=== PATIENT | male | born 1965 | race Caucasian/White ===

== ENCOUNTER 2017-05-05 17:08 | Emergency (ER) | payer OTHER ==
[~2017-05-05] VITALS: Ht 175.3 cm; Wt 123.0 kg
[~2017-05-05 17:08] MED LIST: ASPEC81 PO
[2017-05-05 17:24] VITALS: TEMP 36.8; Ht 175.3 cm; Wt 123.0 kg
[2017-05-05] MEDS ORDERED: FLUO40CA8 PO (17:41)
[2017-05-05] MEDS ORDERED: ASPI1TAB83 PO (17:41)
[2017-05-05] MEDS ORDERED: BUPR100T5 PO (17:41)
[2017-05-05] MEDS ORDERED: IBUP-1277 PO (17:41)
[2017-05-05] MEDS ORDERED: OXYCODONE HCL IR 5 MG TAB (IMMEDIATE RELEASE) PO STA (17:43)
--- NOTE | 2017-05-05 19:02 | DIAGNOSTIC IMAGING REPORT ---
RIGHT TIBIA/FIBULA 2 VIEWS ROUTINE CLINICAL HISTORY: Right lower leg pain. COMPARISON: None FINDINGS: No acute fracture of the right tibia or fibula is identified. The right foot will be reported separately. Talar dome is intact. IMPRESSION: No acute fracture of the right tibia or fibula. Electronically signed by: Jose Wei M.D. 05/05/2017 7:01 PM Dictated Date/Time: 05/05/2017 7:00 PM
--- NOTE | 2017-05-05 19:04 | DIAGNOSTIC IMAGING REPORT ---
RIGHT FOOT MIN 3 VIEWS ROUTINE CLINICAL HISTORY: Right distal tib/fib and foot pain s/p "pop" in anklee. COMPARISON: None FINDINGS: A right hindfoot fusion is noted. Hardware is intact. No acute fracture is identified on this examination. Tarsometatarsal joints are intact. 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 There is plantar calcaneal spurring. IMPRESSION: 1. No acute fracture or dislocation within the right foot. 2. Status post right hindfoot fusion. Electronically signed by: Jose Wei M.D. 05/05/2017 7:02 PM Dictated Date/Time: 05/05/2017 7:01 PM
[2017-05-05] MEDS ORDERED: OXYC1TAB3 PO (19:29)
--- NOTE | 2017-05-05 19:31 | EMERGENCY ROOM VISIT NOTE ---
History First contact with patient: 17:33 Chief Complaint: LEG PAIN,LEG INJURY Stated Complaint: PAIN IN RT FOOT/LEG, NON WEIGHT BEARING History of Present Illness The patient is a 51 year old male who presents to the Emergency Room via private vehicle with complaints of "pain and right foot/leg, nonweightbearing". The patient states that he had a fusion of his right ankle joint 20 years ago performed by a rib cloth knitter. Since then he has been experiencing trouble in this ankle joint. Most recently, this past evening he was woken from sleep when he moved his ankle he heard a pop in the ankle joint. He then went back to sleep when he woke up he try to bear weight on the leg and was unable to do so secondary to pain in the right ankle. He notes with weightbearing, the pain radiates from the right ankle joint into the feet and then up the leg. He rates his pain as a 10/10 at times. He is concerned that the hardware in the leg may have shifted in the leg. There is been no fevers, chills, chest pain or shortness of breath. Review of Systems A complete 6-point Review of Systems was discussed with the patient, with pertinent positives and negatives listed in the History of Present Illness. All remaining Review of Systems questions can be considered negative unless otherwise specified. Past Medical/Surgical History Previous fusion of the right ankle. Family History No pertinent. Social History Smoking Status: Current Every Day Smoker Social History: Patient lives locally. Current/Historical Medications Scheduled Aspirin (Aspirin), 81 MG PO DAILY Bupropion Hcl (Wellbutrin Sr), 100 MG PO DAILY Fluoxetine Hcl (Prozac), 40 MG PO DAILY Scheduled PRN Ibuprofen (Advil), 800 MG PO DAILY PRN for Pain Oxycodone Ir (Roxicodone Ir), 1-2 TAB PO Q4H PRN for Pain Allergies Coded Allergies: No Known Allergies (Verified Allergy, Severe, 03/10/03) Physical Exam Vital Signs Date Time Temp Pulse Resp B/P (MAP) Pulse Ox O2 Delivery O2 Flow Rate FiO2 05/05/17 19:40 71 16 123/78 98 05/05/17 17:24 36.8 99 18 128/78 95 Room Air Physical Exam VITAL SIGNS - Vital signs and nursing notes were reviewed. GENERAL -51-year-old male appearing his stated age who is in no acute distress. Communicates well with provider and answers questions appropriately. SKIN - Without rashes. There is no evidence of a well-healed surgical scar overlying the right lateral malleolus. There is no erythema, edema or skin breakdown. EXTREMITIES - No clubbing or peripheral cyanosis. No pretibial edema present. There is tenderness to palpation overlying the entire right ankle joint radiating into the foot and distal jenkins. Near full range of motion is appreciated of the right knee, but very limited range of motion of the right ankle joint secondary to pain and hardware fusion. He is neurovascularly intact in this region. +5/5 strength noted in UE/LE bilaterally. There is no calf tenderness. Medical Decision & Procedures ER Provider Diagnostic Interpretation: RIGHT FOOT MIN 3 VIEWS ROUTINE CLINICAL HISTORY: Right distal tib/fib and foot pain s/p "pop" in anklee. COMPARISON: None FINDINGS: A right hindfoot fusion is noted. Hardware is intact. No acute fracture is identified on this examination. Tarsometatarsal joints are intact. 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 There is plantar calcaneal spurring. IMPRESSION: 1. No acute fracture or dislocation within the right foot. 2. Status post right hindfoot fusion. Electronically signed by: Jose Wei M.D. 05/05/2017 7:02 PM Dictated Date/Time: 05/05/2017 7:01 PM RIGHT TIBIA/FIBULA 2 VIEWS ROUTINE CLINICAL HISTORY: Right lower leg pain. COMPARISON: None FINDINGS: No acute fracture of the right tibia or fibula is identified. The right foot will be reported separately. Talar dome is intact. IMPRESSION: No acute fracture of the right tibia or fibula. Electronically signed by: Jose Wei M.D. 05/05/2017 7:01 PM Dictated Date/Time: 05/05/2017 7:00 PM Medications Administered Medications (Trade) Dose Ordered Sig/Denise Route Start Time Stop Time Status Last Admin Dose Admin Oxycodone HCl (Roxicodone Immediate Rel Tab) 10 mg NOW STAT PO 05/05/17 17:43 05/05/17 17:45 DC 05/05/17 17:50 10 MG Medical Decision Patient was seen and evaluated as above. After obtaining a thorough history and physical examination the decision was made to obtain radiographs of the right lower extremity. These were negative. I suspect the patient is likely spirits in either a sprain of the region, or potentially increased pain secondary to the intact hardware. There is obviously the potential for a small disruption of the hardware that is not appreciable by x-ray. The patient at this time appears stable for outpatient management, was fitted with crutches, and gel ankle splint. He'll be given OxyIR for his pain here, as well as a short-term prescription at home. He is to follow-up with Dr. Cordova, orthopedic surgeon. He was educated upon management, educated upon worrisome symptoms which to return, had questions prior to discharge, and was discharged home in good condition. In the evaluation and treatment of this patient, the following differential diagnoses were considered: Ankle Fracture, Ankle Sprain, Distal Fibula Fracture , Distal Tibia Fracture, Foot Fracture, [place]uve Fracture. [facility] Monitoring Program Search Results: patient reviewed within database, no issues identified Impression Primary Impression: Leg pain, right Departure Information Dispostion Home / Self-Care Condition GOOD Prescriptions Oxycodone Ir (Roxicodone Ir) 5 Mg Tab 1-2 TAB PO Q4H Y for Pain, #18 TAB For Initial Treatment Prov: Rafael Delgado PA-C 05/05/17 Referrals No Doctor, Assigned (PCP) Iván Cordova,D.O. Patient Instructions My [facility] Additional Instructions You have been treated in the Emergency Department for a Right Ankle pain. You have received pain medicine in the emergency department which impairs your ability to operate a vehicle. It is illegal for you to drive after receiving these medicines. You have been prescribed Oxy IR to be used for pain control. This is a narcotic medication. You cannot drive or consume alcohol while on this medicine. This medicine should only be used for pain that cannot be controlled with over-the- counter pain medicines. For pain control, you can use the following [id number] medicines (if >12 yo): - Regular strength (325mg/tab) Tylenol (acetaminophen) 2 tabs every 4-6 hours as needed. Do not exceed 12 tablets in a 24 hour period. Avoid taking more than 3 grams (3000 mg) of Tylenol per day. This includes any other sources of acetaminophen you may take on a regular basis. - Regular strength (200 mg/tab) Advil (ibuprofen) 1-2 tabs every 4-6 hours as needed. Do not exceed a dose of 3200 mg per day. If this is a recent injury (<24 hrs), ice can be applied to the area of pain for the first 3 days to help decrease pain and inflammation. You have been provided the number for an Orthopaedic Surgeon. You should call this number as soon as possible to establish a follow-up visit from today's Emergency Department visit. Keep the ankle brace/splint in place until cleared by Orthopedics. Use the crutches you have been provided to keep ALL weight off of the ankle until weight bearing is tolerable. Return to the Emergency Department if your current symptoms worsen despite treatment course outlined above, or if you develop any of the following symptoms : intractable pain despite aforementioned treatment course or new onset of numbness or tingling of the foot. Please return to the emergency department with any new/concerning symptoms.
[2017-05-05 19:40] VITALS: BP 123/78; PULSE 71; O2SAT 98
== END 2017-05-05 19:41 | disposition home or self-care (01) ==
LOC: C.EDB 17:09 → C.EDD 19:41
DX: M79.604 Pain in right leg (principal); F17.210 Nicotine dependence, cigarettes, uncomplicated; Z79.82 Long term (current) use of aspirin; Z79.899 Other long term (current) drug therapy

== ENCOUNTER 2018-01-14 17:02 | Emergency (ER) | payer OTHER ==
[~2018-01-14] VITALS: Ht 175.3 cm; Wt 102.8 kg
[~2018-01-14 17:02] MED LIST changes: -ASPEC81 PO; +ASPI1TAB83 PO; +BUPR100T5 PO; +FLUO40CA8 PO; +IBUP-1277 PO
[2018-01-14 17:05] VITALS: TEMP 36.5
[2018-01-14 17:31] VITALS: Ht 175.3 cm; Wt 102.8 kg
[2018-01-14 17:36] VITALS: O2SAT 95
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
[2018-01-14 17:48] LABS: BASO % 0.4 %; BASO ABS # 0.05 K/uL (0-0.2); EOS % 0.5 %; EOS ABS # 0.07 K/uL (0-0.5); HEMATOCRIT 42.5 % (42-52); HEMOGLOBIN 13.9 g/dL (14.0-18.0); IG# 0.04 K/uL (0.00-0.02); LYMPH % 25.9 %; LYMPH ABS # 3.52 K/uL (1.2-3.4); MEAN CELL VOLUME 77.7 fL (80-100); MEAN CORPUSCULAR HEMOGLOBIN 25.4 pg (25-34); MEAN CORPUSCULAR HGB CONC 32.7 g/dl (32-36); MEAN PLATELET VOLUME 10.1 fL (7.4-10.4); MONO % 5.9 %; NEUT ABS # 9.11 K/uL (1.4-6.5); PLATELET COUNT 249 K/uL (130-400); RED CELL DISTRIBUTION WIDTH CV 18.5 % (11.5-14.5); WHITE BLOOD COUNT 13.59 K/uL (4.8-10.8)
--- NOTE | 2018-01-14 17:54 | DIAGNOSTIC IMAGING REPORT ---
CHEST ONE VIEW PORTABLE CLINICAL HISTORY: EVALUATE WEAKNESS dyspnea COMPARISON STUDY: 01/14/2015 FINDINGS: Minimal atelectasis left base. Lungs otherwise are clear. The diaphragms are smooth. No significant cardiac enlargement. IMPRESSION: Minimal atelectasis left base. Otherwise negative study. The above report was generated using voice recognition software. It may contain grammatical, syntax or spelling errors. Electronically signed by: Richard Matamoros M.D. 01/14/2018 5:52 PM Dictated Date/Time: 01/14/2018 5:52 PM
[2018-01-14 17:56] LABS: PTT PATIENT 25.4 SECONDS (21.0-31.0)
[2018-01-14 18:26] LABS: ALBUMIN 3.4 gm/dl (3.4-5.0); ALT/SGPT 22 U/L (12-78); AST/SGOT 9 U/L (15-37); BLOOD UREA NITROGEN 14 mg/dl (7-18); CALCIUM 8.2 mg/dl (8.5-10.1); CARBON DIOXIDE 28 mmol/L (21-32); CREATININE 0.94 mg/dl (0.60-1.40); GLUCOSE 129 mg/dl (70-99); POTASSIUM 3.7 mmol/L (3.5-5.1); SODIUM 139 mmol/L (136-145)
[2018-01-14 18:37] LABS: ALKALINE PHOSPHATASE 93 U/L (45-117); CKMB < 0.5 ng/ml (0.5-3.6); TOTAL PROTEIN 7.1 gm/dl (6.4-8.2)
[2018-01-14 20:40] VITALS: BP 128/86; PULSE 72; O2SAT 94
== END 2018-01-14 20:41 | disposition home or self-care (01) ==
LOC: C.EDB 17:03 → C.EDC 20:41
DX: R55 Syncope and collapse (principal); F17.210 Nicotine dependence, cigarettes, uncomplicated; Z87.01 Personal history of pneumonia (recurrent); Z80.9 Family history of malignant neoplasm, unspecified; Z83.3 Family history of diabetes mellitus; Z82.49 Family history of ischemic heart disease and other diseases of the circulatory system; Z87.442 Personal history of urinary calculi; Z79.82 Long term (current) use of aspirin

== ENCOUNTER 2024-03-26 18:23 | Inpatient (IN) ==
--- OUTSIDE RECORDS SUMMARY | 2024-03-26 18:29 | External Medical Summary | Summary of Care ---
Author Name Unknown Organization [facility] Address [address] [place] [address] Phone [phone] Care Team Providers Care Child Care Worker Name Role Phone Alida MUNSON MD, Ilya Alcazar Primary Care Provider [phone] Reason for Referral * Precert (Within 10 days (routine)) - Authorized Specialty Diagnoses / Procedures Referred By Contac t Referred To Contact Cardiac Studies Diagnoses Nonrheumatic aortic valve insufficiency Bicuspid aortic valve Enlarged aorta (HCC) Procedures ECHO, COMPLETE (2D), TRANS-THORACIC Daksha Earl CRNP [address] [place] [id number] Referral ID Status Reason Start Date Expiration Date V isits Requested Visits Authorized [id number] Authorized Precert 12/04/2024 999 999 Reason for Visit * Reason Comments Follow Up Encounter Details Date Type Department Care Team (Late st Contact Info) Description 02/18/2024 3:30 PM EDT Office Visit Cardiology, [facility] [address] [place] [id number] Daksha Earl CRNP [address] [place] [id number] Bicuspid aortic valve*; Nonrheumatic aortic valve insufficiency; Enlarged aorta (HCC); HTN, goal below 140/90; DIZZINESS Allergies Active Allergy Reactions Criticality Noted Date Comments Oxycodone High 02/25/2022 Other reaction(s): CONFUSION, CRAZY FEELING Oxycodone-Acetaminop hen Neuro complications (Please comment) Medium 07/23/2010 documented as of this encounter (statuses as of 02/26/2024) Medications Medication Sig Dispensed Refills Start Date End Date Status ASPIRIN 81 MG PO TABS 1 tab daily 0 Active VIAGRA 25 MG PO TABSIndications: Erectile dysfunction One pill by mouth 1-4 hours before intercourse, no more than 1 dose in 24 hours. 10 Tab 2 08/24/2012 Active FLUoxetine HCl 40 MG CapsuleIndicatio ns:Depression with anxiety Take 1 Cap by mouth daily. 30 Cap 11 04/24/2016 Active buPROPion extended release, SR, (WELLBUTRIN SR) 100 MG TB12 Take 1 Tablet by mouth in the morning. 0 06/14/2017 Active acetaminophen (TYLENOL) 500 MG Tablet 2 Tablets. 0 12/12/2019 Active meclizine (ANTIVERT) 25 MG Tablet take 1 tablet by mouth three times a day if needed for dizziness 90 Tab 0 03/05/2020 Active Albuterol Sulfate HFA 108 (90 Base) MCG/ACT Inhalation Aerosol SolutionIndicati ons:Wheeze Inhale 2 Puffs by mouth every 4 hours as needed for Wheezing. 18 g 0 11/12/2022 Active Indapamide 1.25 MG Oral Tablet take 1 tablet by mouth every morning 90 Tablet 1 08/05/2023 Active Atorvastatin Calcium 40 MG Oral Tablet (Lipitor) take 1 tablet by mouth every morning 90 Tablet 2 08/23/2023 Active Meloxicam 7.5 MG Oral Tablet (Mobic) Take 1 Tablet by mouth in the morning and 1 Tablet before bedtime. 60 Tablet 5 09/10/2023 Active Additional Information Patient not taking.Reported on 02/18/2024 Benzonatate 100 MG Oral Capsule (Tessalon Perles)Indicatio ns:Acute cough Take 1 Capsule by mouth 3 times a day as needed for Cough. Do not cut, crush, or chew. 50 Capsule 1 11/12/2022 02/18/20 24 Discontinued Gabapentin 100 MG Oral Capsule (Neurontin) take 1 capsule by mouth every morning 1 capsule AT NOON and 1 capsule BEFORE BEDTIME MAY INCREASE TO 2 CAPS 3 TIMES A DAY FOR SHINGLE PAIN 180 Capsule 3 12/28/2022 02/18/20 24 Discontinued Amoxicillin-Pot Clavulanate 875-125 MG Oral Tablet (Augmentin) Take 1 Tablet by mouth in the morning and 1 Tablet before bedtime. 20 Tablet 0 06/14/2023 02/18/20 24 Discontinued documented as of this encounter (statuses as of 02/26/2024) Active Problems Problem Noted Date Diagnosed Date HTN, goal below 140/90 08/19/2022 Branch retinal vein occlusio n with macular edema of left eye 08/03/2017 Lumbar degenerative disc disease 03/25/2012 Secondary polycythemia 11/12/2009 Erectile dysfunction 09/18/2009 Leukocytosis 02/05/2009 DIZZINESS 10/08/2007 LABYRINTHITIS VIRAL 10/08/2007 Anxiety state 10/08/2007 ADVANCE DIRECTIVE INFORMATION 10/01/2006 Overview: No, Advance Directive brochure offered , patient declined. Tobacco use disorder 03/11/2000 documented as of this encounter (statuses as of 02/26/2024) Resolved Problems Problem Noted Date Diagnosed Date Resolved Date ACUTE STRESS 10/08/2007 07/23/2010 Acute cholecystitis 09/29/2002 05/15/20 05 documented as of this encounter (statuses as of 02/26/2024) Immunizations Name Administration Dates Next Due COVID-19 mRNA, LNP-s, No Pre serve, 2-Dose Series (Pfizer) 12/28/2020,12/07/2020 Pneumococcal Conjugate Vaccine, 20-valent (Prevn ar20) 05/13/2022 Seasonal Influenza, Quadrivalent, No Preserve, I M 07/10/2020,07/19/2019 TDAP (age 10 and older)(Boostrix) 10/21/2012 Zoster Vaccine Recombinant (Shingrix) 05/13/2022 documented as of this encounter Social History Tobacco Use Types Packs/Day Years Used Date Smoking Tobacco: Every Day Cigarettes 1 25 Started: 08/24/1987; Last attempted to quit: 08/24/2012 Smokeless Tobacco: Former Tobacco Cessation:Ready to Q uit: Not Asked; Counseling Given: Not Answered Comments:started smoking age 18. As of 09-06 smoking 2.5 pk /d Alcohol Use Standard Drinks/Week Comments Yes 0 (1 standard drink = 0.6 oz pur e alcohol) rare wine with dinner PHQ-2 Answer Date Recorded PHQ-2 Score -1 07/21/2020 Sex and Gender Information Value Date Recorded Sex Assigned at Not on file Gender Identity Not on file Sexual Orientation Not on file Job Start Date Occupation Industry Not on file Not on file Not on file documented as of this encounter Last Filed Vital Signs Vital Sign Reading Time Taken Comments Blood Pressure 128/64 02/18/2024 3:29 PM EDT Pulse 82 02/18/2024 3:29 PM EDT Temperature - - Respiratory Rate - - Oxygen Saturation 92% 02/18/2024 3:29 PM EDT Inhaled Oxygen Concentration - - Weight 91.6 kg (202 lb) 02/18/2024 3:29 PM EDT Height - - Body Mass Index 29.83 07/13/2023 9:56 AM EDT documented in this encounter Functional Status Functional Status Response Date of Assess ment Are you deaf or do you have serious difficulty h earing? No 05/28/2023 Are you blind or do you have serious difficulty seeing, even when wearing glasses? No 05/28/2023 Do you have serious difficul ty walking or climbing stairs? (5 years old or older) No 05/28/2023 Do you have difficulty dress ing or bathing? (5 years old or older) No 05/28/2023 Because of a physical, menta l, or emotional condition, do you have difficulty doing errands alone such as visiting a doctor s office or shopping? (15 years old or older) No 05/28/20 Cognitive Status Response Date of Assessm ent Because of a physical, menta l, or emotional condition, do you have serious difficulty concentrating, remembering, or making decisions? (5 years old or older) No 05/28/2023 documented as of this encounter Progress Notes * Daksha Earl CRNP - 02/18/2024 3:30 PM EDT 02/18/2024 Cardiology Follow Up Primary Damage Cutter: MARILU; formerly Dr. Ryan Cardiac Problems: 1. Bicuspid aortic valve with moderate aortic regurgitation. 2. Ongoing tobacco abuse. 3. Thrombocytosis. 4. Polymorphonuclear leukocytosis HPI: Chandan Scott is a 58 year old male presents for routine cardiology follow up. Last seen in our office dating back to 09/2021 with no cardiac concerns. Patient presents today feeling well over all. He denies any new or changing symptoms. He reports rare chest pressure if he "really over does it" Resolves within seconds. Negative stress in 2014. EKG today demonstrates NSR, prior septal infarct Rate 75bpm. Currently smoking 2 PPD BP at target. History of bicuspid aortic valve with moderate AI, enlarged aorta as noted on last echo study 12/02/2023 Reports compliance on all medication therapies with no untoward effects. REVIEW OF SYSTEMS: See HPI for pertinent positives. All others negative other than those noted in the HPI. CONSTITUTIONAL: No change in weight, No weakness, No fatigue and No fevers, No sweats or chills. PULMONARY: No cough, sputum, or hemoptysis, No wheezing, No shortness or breath and No recent change in breathing. CARDIOVASCULAR: No chest pain, No dyspnea on exertion, No edema, No palpitations and No syncope. GASTROINTESTINAL: No abdominal pain, No change in bowel habits, No significant heartburn, No nausea, No vomiting, No diarrhea, No constipation, No blood in stools or black tarry stools. No dysphagia. HEMATOLOGIC: No abnormal bleeding and No bruising. NEUROLOGICAL: Normal balance, No headaches and No weakness. Review of patient's allergies indicates: Allergen Reactions Oxycodone Other reaction(s): CONFUSION, CRAZY FEELING Percocet [Oxycodone-Acetaminophen] Neuro complications (Please comment) Current Outpatient Medications Medication Sig Dispense Refill ASPIRIN 81 MG PO TABS 1 tab daily VIAGRA 25 MG PO TABS One pill by mouth 1-4 hours before intercourse, no more than 1 dose in 24 hours. 10 Tab 2 FLUoxetine HCl 40 MG Capsule Take 1 Cap by mouth daily. 30 Cap 11 acetaminophen (TYLENOL) 500 MG Tablet 2 Tablets. meclizine (ANTIVERT) 25 MG Tablet take 1 tablet by mouth three times a day if needed for dizziness 90 Tab 0 Albuterol Sulfate HFA 108 (90 Base) MCG/ACT Inhalation Aerosol Solution Inhale 2 Puffs by mouth every 4 hours as needed for Wheezing. 18 g 0 Indapamide 1.25 MG Oral Tablet take 1 tablet by mouth every morning 90 Tablet 1 Atorvastatin Calcium 40 MG Oral Tablet (Lipitor) take 1 tablet by mouth every morning 90 Tablet 2 buPROPion extended release, SR, (WELLBUTRIN SR) 100 MG TB12 Take 1 Tablet by mouth in the morning. (Patient not taking: Reported on 02/18/2024) 0 Meloxicam 7.5 MG Oral Tablet (Mobic) Take 1 Tablet by mouth in the morning and 1 Tablet before bedtime. (Patient not taking: Reported on 02/18/2024) 60 Tablet 5 No current facility-administered medications for this visit. 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 Bryant Temporomandibular joint disorders, unspecified 1995 same eval. per above Family History Problem Relation Age of Onset Cancer Father age 68- unknown type cancer Neurological Disorder Mother alzheimers Glaucoma Mother Diabetes Uncle (Unspecified) Heart Disorder Brother a fib Other (Other) Brother fibromyalgia Eye Problems Other Denies family hx of retinal disease Social History Socioeconomic History Marital status: Number of children: 2 Years of education: 12 Occupational History Occupation: unemployed Tobacco Use Smoking status: Every Day Current packs/day: 0.00 Average packs/day: 1 pack/day for 25.0 years (25.0 ttl pk-yrs) Types: Cigarettes Start date: 08/24/1987 Last attempt to quit: 08/24/2012 Years since quittin.5 Smokeless tobacco: Former Tobacco comments: started smoking age 18. As of 09-06 smoking 2.5 pk /d Vaping Use Vaping Use: Never used Substance and Sexual Activity Alcohol use: Yes Comment: rare wine with dinner Drug use: No Sexual activity: Yes OBJECTIVE/PHYSICAL EXAMINATION: BP 128/64 | Pulse 82 | Wt 91.6 kg (202 lb) | SpO2 92% | BMI 29.83 kg/m | BSA 2.11 m General: No acute distress. A+Ox3. HEENT: Normocephalic. Atraumatic. PERRL. EOMI. Conjunctiva and sclera clear. NECK: No carotid bruits. No JVD. Carotid upstrokes are brisk. Heart: RRR. S1 and S2 noted. No murmur. No rubs or gallops. PMI non displaced. Lungs: Clear to auscultation. No wheezes.No rhonchi. No rales. Abdomen: Normal bowel sounds. Soft. Nontender. No masses or organomegaly. No abdominal bruits. Extremities: No edema. No clubbing or cyanosis. Pulses: radial=2/4, posterior tibial=2/4, dorsalis pedis = 2/4. NEURO: No focal deficits. PSYCH: Appropriate affect and insight. DATA Labs & Imaging Reviewed Below: Echocardiogram 12/02/2023 Interpretation Summary The examination is adequate to evaluate the referral indication. The left ventricular cavity size is normal. Left ventricular end-diastolic diameter 4.8 cm The LV wall thickness is borderline increased (concentric). The left ventricular wall motion is normal. The qualitative LV ejection fraction is 55-59% (normal). The aortic valve is congenitally bicuspid. The aortic valve is mildly calcified. Moderate aortic valve regurgitation is present. The aortic root is mildly enlarged. 4.0 cm In comparison to prior study of October 22, 2022, aortic insufficiency is stable. Aortic root is slightly larger Echocardiogram 10/22/2022 Interpretation Summary The examination is adequate to evaluate the referral indication. The left ventricular cavity size is normal. LVIDd 4.5 cm The left ventricular wall motion is normal. The qualitative LV ejection fraction is 55-59% (normal). The left ventricular diastolic function is mildly abnormal (grade I). The aortic valve is congenitally bicuspid. The aortic valve is moderately calcified. The aortic valve has eccentric closure. Aortic stenosis is absent. Moderate aortic valve regurgitation is present. The aortic root and proximal ascending aorta are normal sized. In comparison to prior study of September 08, 2021, degree of aortic insufficiency has increased but remains moderate Echocardiogram 09/08/2021 Interpretation Summary The examination is adequate to evaluate the referral indication. The left ventricular cavity size is normal. The LV wall thickness is mildly increased (concentric). The left ventricular wall motion is normal. The qualitative LV ejection fraction is 55-59% (normal). Calculated LV ejection Fraction = 59% (bi-plane method of discs). The left ventricular diastolic function is mildly abnormal (grade I). The aortic valve is congenitally bicuspid. Aortic stenosis is absent. Moderate aortic valve regurgitation is present. EKG 06/17/22 Normal sinus rhythm Normal ECG When compared with ECG of 12-SEP-2020 15:38, No significant change was found Ventricular Rate: 78 ASSESSMENT/PLAN: 58 year old year old male 1. Bicuspid aortic valve 2. Nonrheumatic aortic valve insufficiency -Known congenital bicuspid aortic valve, most recent echo demonstrates calification with moderate AI. Patient feels that he is able to keep up with his normal routine, but does develop dizziness and some chest discomfort if he "really overdoes it" -EKG unchanged, no acute ST-T wave changes. -Repeat echo in one year for surveillance - EKG - ECHO, COMPLETE (2D), TRANS-THORACIC; Future 3. Enlarged aorta (HCC) -Stable per echo 12/2023, repeat echo in one year. -Continue ASA and Atorvastatin -Maintains target BP control. Continue Indapamide - EKG - ECHO, COMPLETE (2D), TRANS-THORACIC; Future 4. HTN, goal below 140/90 -At target. Continue Indapamide - EKG 5. DIZZINESS -Close surveillance of known aortic insufficiency -Also recommend spot BP checks with dizzy spells, consider orthostasis -Encourage adequate hydration DISPOSITION: Follow up 1 year or if symptoms worsen/fail to improve. All questions were answered to the patients satisfaction. Patient advised to report to ED with any and all emergencies. The patient agrees to the above plan and will call with additional questions or concerns. YARELIS Parra Cardiology, [address] [address] I spent a total of 35 minutes on the date of service in preparation, delivery, and documentation ofthe care provided to Chandan Scott excluding any time spent in the performance of separately billed services. This chart was completed in part utilizing [employer] Voice Recognition Software. Grammatical errors, random word insertions, pronoun errors, and incomplete sentences are an occasional consequence of this system due to software limitations, ambient noise, and hardware issues. Any formal questions or concerns about the content, text, or information contained within the body of this dictation should be directly addressed to the provider for clarification. documented in this encounter Procedure Notes * Adithya Che DO - 02/18/2024 3:39 PM EDTAssociated Order(s): EKG REASON FOR STUDY: routine;routine CONCLUSIONS: Normal sinus rhythm Normal ECG When compared with ECG of 17-Jun-2022 14:40, No significant change was found Ventricular Rate: 75 Atrial Rate: 75 VA Interval: 166 QRS Duration: 94 QT/QTc: 394/439 ms P-R-T Armstrong: 68 : 78 : 61 degrees documented in this encounter Nursing Notes * Bebe Caraballo CMA - 02/18/2024 3:29 PM EDT Examination Room: 7 Name: Chandan Scott Date of : (1965) Reason for Visit: routine Interim Hospitalization(s): none Problems/Concerns: denied Chest Pain/SOB: denied My [facility] is a way you can talk to your provider online through e-mail. Would you like to sign up? I can activate it for you? DECLINES Patient was instructed to not get up on the exam table until directed and assisted by their provider; patient is to remain seated in the chair/ wheelchair/ exam table for fall prevention and safety reasons. Patient is aware to have assistance to step down off exam table with personnel. Patient voiced full comprehension of instructions. documented in this encounter Plan of Treatment Upcoming Encounters Date Type Department Care Team (Late st Contact Info) Description 02/28/2024 1:00 PM EDT Hem/Onc Treatment [facility] [place] [address] [facility] [id number] Rae, Chair 8 Hem Onc [address] [place] [address] 04/10/2024 3:00 PM EDT Office Visit Hematology/Oncology [facility] [address] [place] [id number] Kalani Haji CRNP [address] [facility] [place] [id number] 12/04/2024 3:30 PM EST Cardiac Studies Cardiac Studies, [facility] [address] [place] [address] Scheduled Orders Name Type Priority Associated Diagnoses Orde r Schedule ECHO, COMPLETE (2D), TRANS-THORACIC Echocardiology Routine Nonrheumatic aortic valve insufficiency Bicuspid aortic valve Enlarged aorta (HCC) Expected: 12/04/2024 (Approximate), Expires: 08/19/2025 Scheduled Procedures Name Priority Associated Diagnoses Date/Ti me COLONOSCOPY FLEXIBLE PROXIMAL DIAGNOSTIC Recall History of colon polyps Health Maintenance Due Date Last Done Comments HIV Screening 1979 Albumin/Creatinine Ratio 1982 Hepatitis C Screening 1982 Hepatitis B (1 of 3 - 19+ 3-dose series) 1983 Cologuard 2009 Fecal Occult Blood Test 2009 Sigmoidoscopy 2009 Lung Cancer Screening 2014 Depression Screening 12/26/2020 12/26/2019 Zoster Vaccines (2 of 2) 07/08/2022 05/13/2022 DTaP,Tdap,and Td Vaccines (2 - Td or Tdap) 10/21/2022 10/21/2012, 05/15/2005 COVID-19 Vaccine (3 - season) 2023 12/28/2020, 12/07/2020 GFR 06/30/2024 06/30/2023, 04/01, 02/21/2022, Additional history exists Influenza Vaccine (FLU shot) (Season Ended) 2024 07/10/2020, 07/19/2019 Diabetes Screening 06/30/2026 06/30/2023, 0 05/28/2023, 05/28/2023, Additional history exists Colonoscopy 06/02/2027 06/02/2022, 08/12/2021, 05/07/2016 Colorectal Cancer Screening 06/02/2027 Lipid Panel 06/30/2028 06/30/2023, 0412/2021, 07/17/2016 Pneumococcal Vaccine: Pediatrics (0 to 5 Years) and At-Risk Patients (6 to 64 Years) Completed 05/13/2022 RETIRED - COLONOSCOPY-EVERY 5 YRS AGES 18-100 Discontinued 06/02/2022, 06/02/2022, 05/07/2016, Additional history exists GARDASIL-HPV IMMUNIZATION SERIES Aged Out No longer eligible based on patient's age to complete this topic MENINGOCOCCAL (MENACTRA/MENVEO) Aged Out No longer eligible based on patient's age to complete this topic documented as of this encounter Medical Devices Not on filedocumented as of this encounter Procedures Procedure Name Priority Date/Time Associated Diagnosis Comments VA ECG ROUTINE ECG W/LEAST 12 LDS W/I&R Routine 02/18/2024 3:39 PM EDT HTN, goal below 140/90 Nonrheumatic aortic valve insufficiency Bicuspid aortic valve Enlarged aorta (HCC) documented in this encounter Results * EKG (02/18/2024 3:39 PM EDT) 02/18/2024 3:39 PM EDT Narrative Procedure Note Adithya Che DO - 02/18/2024 3:39 PM EDT REASON FOR STUDY: routine;routine CONCLUSIONS: Normal sinus rhythm Normal ECG When compared with ECG of 17-Jun-2022 14:40, No significant change was found Ventricular Rate: 75 Atrial Rate: 75 VA Interval: 166 QRS Duration: 94 QT/QTc: 394/439 ms P-R-T Armstrong: 68 : 78 : 61 degrees Daksha SANTOYO EKG Performing Organization Address City/State/[facility] Co de Phone Number [facility] documented in this encounter Visit Diagnoses Diagnosis Bicuspid aortic valve- Primary Congenital insufficiency of aortic valve Nonrheumatic aortic valve insufficiency Aortic valve disorders Enlarged aorta (HCC) Other specified disorders of arteries and arterioles HTN, goal below 140/90 Unspecified essential hypertension DIZZINESS Dizziness and giddiness documented in this encounter Advance Directives Latest Code Status on File Code Status Date Activated Date Inactivated Comments Full Code 05/28/2023 2:02 PM 05/30/2023 2:22 AM This order reflects the patients wishes and were consensually agreed upon. Question Answer Comments Discussion of Advance Directives occurred with: Not Discussed due to patient's condition Code Status History Code Status Date Activated Date Inactivated Comments Full Code 08/11/2022 6:03 PM 08/12/2022 3:54 PM Thi s order reflects the patients wishes and were consensually agreed upon. Question Answer Comments Discussion of Advance Directives occurred with: Not Discussed due to patient's condition Care Teams Child Care Worker Relationship Specialty Start Date End Date Ilya Irwin III, MD [address] [facility] [place], [place] [id number] PCP - General Family Medicine 07/27/16 documented as of this encounter
--- OUTSIDE RECORDS SUMMARY | 2024-03-26 18:29 | External Medical Summary | Summary of Care ---
Author Name Unknown Organization [facility] Address [address] [place] [address] Phone [phone] Care Team Providers Care Second Shift Supervisor Name Role Phone Alida MUNSON MD, Ilya Alcazar Primary Care Provider [phone] Reason for Visit * Reason Onset Date Comments Test Results Lab 02/21/2024 Encounter Details Date Type Department Care Team (Late st Contact Info) Description 02/21/2024 Telephone Hematology/Oncology [facility] [place] [facility] [phone] Eduardo Hewitt MD 200 [facility] [place] [address] Test Results Lab Allergies Active Allergy Reactions Criticality Noted Date Comments Oxycodone High 02/25/2022 Other reaction(s): CONFUSION, CRAZY FEELING Oxycodone-Acetaminop hen Neuro complications (Please comment) Medium 07/23/2010 documented as of this encounter (statuses as of 02/21/2024) Medications Medication Sig Dispensed Refills Start Date End Date Status ASPIRIN 81 MG PO TABS 1 tab daily 0 Active VIAGRA 25 MG PO TABSIndications:Ere ctile dysfunction One pill by mouth 1-4 hours before intercourse, no more than 1 dose in 24 hours. 10 Tab 2 08/24/2012 Active FLUoxetine HCl 40 MG CapsuleIndications: Depression with anxiety Take 1 Cap by mouth [...] HFA 108 (90 Base) MCG/ACT Inhalation Aerosol SolutionIndications :Wheeze Inhale 2 Puffs by mouth every 4 [...] Additional Information Patient not taking.Reported on 02/18/2024 documented as of this encounter (statuses as of 02/21/2024) Active Problems Problem Noted Date Diagnosed Date [...] as of this encounter (statuses as of 02/21/2024) Resolved Problems Problem Noted Date Diagnosed Date Resolved Date ACUTE STRESS 10/08/2007 07/23/2010 Acute cholecystitis 09/29/2002 05/15/20 05 documented as of this encounter (statuses as of 02/21/2024) Immunizations Name Administration Dates Next Due COVID-19 mRNA, LNP-s, No Pre serve, 2-Dose Series ([employer]) 12/28/2020,12/07/2020 Pneumococcal Conjugate Vaccine, 20-valent (Prevn ar20) 05/13/2022 Seasonal Influenza, Quadrivalent, No Preserve, I M 07/10/2020,07/19/2019 TDAP (age 10 and older)(Boostrix) 10/21/2012 Zoster Vaccine Recombinant (Shingrix) 05/13/2022 documented as of this encounter Social History Tobacco Use Types Packs/Day Years Used Date Smoking Tobacco: Every Day Cigarettes 1 25 Started: 08/24/1987; Last attempted to quit: 08/24/2012 Smokeless Tobacco: Former Comments:started smoking age 18. As of 09-06 [...] on file documented as of this encounter Functional Status Functional Status Response [...] (15 years old or older) No 05/28/20 23 Cognitive Status Response Date of Assessm ent Because of a physical, menta l, or emotional condition, do you have serious difficulty concentrating, remembering, or making decisions? (5 years old or older) No 05/28/2023 documented as of this encounter Miscellaneous Notes * Telephone Encounter - Leighann Guthrie LPN - 02/21/2024 1:25 PM EDT Called and spoke with patient, informed patient of lab result note below. Patient verbalized understanding and is in agreement with treatment plan. Per patient request scheduled for next Wednesday02/28/2024 at 1:00 pm. Patient states he needs afternoon appointments and "can only do Mondays". * Telephone Encounter - Leighann Guthrie LPN - 02/21/2024 1:18 PM EDT ----- Message from Eduardo Hewitt MD sent at 02/21/2024 12:12 PM EDT ----- Blood workup done on 02/18/2024: -WBC 20126, H&H of 18.2/54.4, Platelet count of 260,000 He has persistent erythrocytosis. We are trying to do the phlebotomy if the hematocrit > 47 I would get phlebotomy x1. Repeat CBCD in about 3 months he should have phlebotomy if the hematocrit > 47. documented in this encounter Plan of Treatment Upcoming Encounters Date Type Department Care Team (Late st Contact Info) Description 02/28/2024 1:00 PM EDT Hem/Onc Treatment Hematology/Oncology Treatment, [place] 200 [place] [address] Rae, Chair 8 Hem Onc [address] [place] [address] 04/10/2024 3:00 PM EDT Office Visit Hematology/Oncology [address] [place] [phone] Kalani Haji CRNP 400 [facility] [place] [address] 12/04/2024 3:30 PM EST Cardiac Studies Cardiac Studies, [facility] 132 [facility] [place] [address] Scheduled Procedures Name Priority Associated Diagnoses Date/Ti me COLONOSCOPY FLEXIBLE PROXIMAL DIAGNOSTIC Recall History of colon polyps Health Maintenance Due Date Last Done Comments HIV Screening 1979 Albumin/Creatinine Ratio 1982 Hepatitis C Screening 1982 Hepatitis B (1 of 3 - 19+ 3-dose series) 1983 Lung Cancer Screening 2014 Depression Screening 12/26/2020 12/26/2019 Zoster Vaccines (2 of 2) 07/08/2022 05/13/2022 DTaP,Tdap,and Td Vaccines (2 - Td or Tdap) 10/21/2022 10/21/2012, 05/15/2005 COVID-19 Vaccine (3 - 2022- season) 2023 12/28/2020, 12/07/2020 GFR 06/30/2024 06/30/2023, 04/01, 02/21/2022, Additional history exists Influenza Vaccine (FLU shot) (Season Ended) 2024 07/10/2020, 07/19/2019 Diabetes Screening 06/30/2026 06/30/2023, 0 05/28/2023, 05/28/2023, Additional history exists COLONOSCOPY-EVERY 5 YRS AGES 18-100 06/02/2027 06/02/2022, 06/02/2022, 05/07/2016, Additional history exists Lipid Panel 06/30/2028 06/30/2023, 01/31, 07/17/2016 Pneumococcal Vaccine: Pediatrics (0 to 5 Years) and At-Risk Patients (6 to 64 Years) Completed 05/13/2022 GARDASIL-HPV IMMUNIZATION SERIES Aged Out No longer eligible based on patient's age to complete this topic MENINGOCOCCAL (MENACTRA/MENVEO) Aged Out No longer eligible based on patient's age to complete this topic documented as of this encounter Medical Devices Not on filedocumented as of this encounter Advance Directives Latest Code Status [...] Discussed due to patient's condition Care Teams Second Shift Supervisor Relationship Specialty Start Date End Date Schley JEIMY, Ilya Alcazar MD [address] [place] [address] PCP - General Family Medicine 07/27/16 documented as of this encounter
--- OUTSIDE RECORDS SUMMARY | 2024-03-26 18:29 | External Medical Summary | Summary of Care ---
Author Name Unknown Organization [facility] Address [address] [place] [address] Phone [phone] Care Team Providers Care Environmental Aid Name Role Phone Alida MUNSON MD, Ilya Alcazar Primary Care Provider [phone] Encounter Details Date Type Department Care Team ([facility] st Contact Info) Description 03/02/[address] [facility] [address], [place] [phone] Roger Geronimo PA-C [address] [place] [address] Allergies Active Allergy Reactions Criticality Noted Date Comments Oxycodone High 02/25/2022 Other reaction(s): CONFUSION, CRAZY FEELING Oxycodone-Acetaminop hen Neuro complications (Please comment) Medium 07/23/2010 documented as of this encounter (statuses as of 03/02/2024) Medications Medication Sig Dispensed Refills Start Date [...] mouth daily. 30 Cap 11 04/24/2016 Active acetaminophen (TYLENOL) 500 MG Tablet 2 [...] before bedtime. 60 Tablet 5 09/10/2023 Active Amoxicillin-Pot Clavulanate 875-125 MG Oral Tablet (Augmentin)Indicati ons:Pneumonia of right lung due to infectious organism, unspecified part of lung Take 1 Tablet by mouth in the morning and 1 Tablet before bedtime. Do all this for 10 days. 20 Tablet 0 03/02/2024 03/12/2024 Active documented as of this encounter (statuses as of 03/02/2024) Active Problems Problem Noted Date Diagnosed Date [...] as of this encounter (statuses as of 03/02/2024) Resolved Problems Problem Noted Date Diagnosed Date Resolved Date ACUTE STRESS 10/08/2007 07/23/2010 Acute cholecystitis 09/29/2002 05/15/20 05 documented as of this encounter (statuses as of 03/02/2024) Immunizations Name Administration Dates Next Due COVID-19 mRNA, LNP-s, No Pre serve, 2-Dose Series ([email or web address]) 12/28/2020,12/07/2020 Pneumococcal Conjugate Vaccine, 20-valent (Prevn ar20) 05/13/2022 Seasonal Influenza, Quadrivalent, No Preserve, I M 07/10/2020,07/19/2019 TD, Preservative Free 05/15/2005 TDAP (age 10 and older)(Boostrix) 10/21/2012 Zoster [...] encounter Miscellaneous Notes * Telephone Encounter - Myrna Alvarez LPN - 03/02/2024 2:10 PM EDT I identified pt by name and , verified by patient. Pt has been informed of below message and verbalized understanding. * Telephone Encounter - Roger Geronimo PA-C - 03/02/2024 1:19 PM EDT Please let patient know his Xray was read as likely pneumonia. I have sent Augmentin to the pharmacy for him. He should have a repeat CXR in 4-6 weeks to follow resolution --> will get this through PCP. documented in this encounter Plan of Treatment Upcoming Encounters Date Type Department Care Team (Late st Contact Info) Description 04/10/2024 3:00 PM EDT Office Visit Hematology/Oncology [facility] 200 [facility] [address] Kalani Haji CRNP 400 [facility] [place] [id number] 12/04/2024 3:30 PM EST Cardiac Studies Cardiac Studies, [facility] 132 [facility] [place] [address] Scheduled Procedures [...] season) 2023 12/28/2020, 12/07/2020 GFR 06/30/2024 06/30/2023, 0605/2022, 02/21/2022, Additional history exists Influenza Vaccine (FLU shot) (Season Ended) 2024 07/10/2020, 07/19/2019 Diabetes Screening 06/30/2026 06/30/2023, 0 05/28/2023, 05/28/2023, Additional history exists Colonoscopy 06/02/2027 06/02/2022, 0812/2021, 05/07/2016, Additional history exists Colorectal Cancer Screening 06/02/2027 Lipid Panel 06/30/2028 06/30/2023, 01/31, 07/17/2016 Pneumococcal [...] Not on filedocumented as of this encounter Visit Diagnoses Diagnosis Pneumonia of right lung due to infectious organism, unspecified part of lung- Primary documented in this encounter Advance Directives Latest [...] Discussed due to patient's condition Care Teams Environmental Aid Relationship Specialty Start Date End Date Ilya Irwin III, MD [address] [place] [address] PCP - General Family Medicine 07/27/16 documented as of this encounter
--- OUTSIDE RECORDS SUMMARY | 2024-03-26 18:29 | External Medical Summary | Summary of Care ---
Author Name Unknown Organization [facility] Address [address] [place] [address] Phone [phone] Care Team Providers Care Gas Technician Name Role Phone Alida MUNSON MD, Ilya Alcazar Primary Care Provider [phone] Encounter Details Date Type Department Care Team (Late st Contact Info) Description 03/14/2024 5:20 PM EDT Telemedicine Family Practice [facility] [address] [facility] [place] [address] Stephania Jeter PA-C [address] [facility] [place] [address] Pneumonia of right lower lobe due to infectious organism*; Wheeze Allergies Active Allergy Reactions Criticality Noted Date Comments Oxycodone High 02/25/2022 Other reaction(s): CONFUSION, CRAZY FEELING Oxycodone-Acetaminop hen Neuro complications (Please comment) Medium 07/23/2010 documented as of this encounter (statuses as of 03/14/2024) Medications Medication Sig Dispensed Refills Start Date End Date Status ASPIRIN 81 MG PO TABS 1 tab daily 0 Active VIAGRA 25 MG PO TABSIndications:E rectile dysfunction One pill by mouth 1-4 hours before intercourse, no more than 1 dose in 24 hours. 10 Tab 2 08/24/2012 Active FLUoxetine HCl 40 MG CapsuleIndication s:Depression with anxiety Take 1 Cap by mouth daily. 30 Cap 11 04/24/2016 Active acetaminophen (TYLENOL) 500 MG Tablet 2 Tablets. 0 12/12/2019 Active meclizine (ANTIVERT) 25 MG Tablet take 1 tablet by mouth three times a day if needed for dizziness 90 Tab 0 03/05/2020 Active Indapamide 1.25 MG Oral Tablet take 1 tablet by mouth every morning 90 Tablet 1 08/05/2023 Active Atorvastatin Calcium 40 MG Oral Tablet (Lipitor) take 1 tablet by mouth every morning 90 Tablet 2 08/23/2023 Active Albuterol Sulfate HFA 108 (90 Base) MCG/ACT Inhalation Aerosol SolutionIndicatio ns:Wheeze Inhale 2 Puffs by mouth every 4 hours as needed for Wheezing. 18 g 3 03/14/2024 Active Meloxicam 7.5 MG Oral Tablet (Mobic) Take 1 Tablet by mouth in the morning and 1 Tablet before bedtime. 60 Tablet 5 03/14/2024 Active Azithromycin 250 MG Oral Tablet (Zithromax)Indica tions:Pneumonia of right lower lobe due to infectious organism Take 2 tabs by mouth on the first day, then 1 tab daily on days two through five 6 Tablet 1 03/14/2024 03/19/2024 Active Albuterol Sulfate HFA 108 (90 Base) MCG/ACT Inhalation Aerosol SolutionIndicatio ns:Wheeze Inhale 2 Puffs by mouth every 4 hours as needed for Wheezing. 18 g 0 11/12/2022 03/14/2024 Discontinued (Refill) Meloxicam 7.5 MG Oral Tablet (Mobic) Take 1 Tablet by mouth in the morning and 1 Tablet before bedtime. 60 Tablet 5 09/10/2023 03/14/2024 Discontinued (Refill) Amoxicillin-Pot Clavulanate 875-125 MG Oral Tablet (Augmentin)Indica tions:Pneumonia of right lung due to infectious organism, unspecified part of lung Take 1 Tablet by mouth in the morning and 1 Tablet before bedtime. Do all this for 10 days. 20 Tablet 0 03/02/2024 03/14/2024 Discontinued (Medication List Clean Up) documented as of this encounter (statuses as of 03/14/2024) Active Problems Problem Noted Date Diagnosed Date HTN, goal below 140/90 08/19/2022 Lumbar degenerative disc disease 03/25/2012 Secondary polycythemia 11/12/2009 Erectile dysfunction 09/18/2009 Leukocytosis 02/05/2009 DIZZINESS 10/08/2007 LABYRINTHITIS VIRAL 10/08/2007 Anxiety state 10/08/2007 ADVANCE DIRECTIVE INFORMATION 10/01/2006 Overview: No, Advance Directive brochure offered , patient declined. 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 Patient location: HOME. I was in a hospital or clinic location. After connecting through televideo,patient was verified with two unique identifiers. Patient (or authorized legal employee representative) was then informed that this was a Telemedicine visit and being conducted confidentially over secure lines. Methods to assure confidentiality were taken. Patient acknowledged consent and understanding of pr ivacy and security of the Telemedicine visit. The patient agreed to participate. History of Present Illness Chandan Scott is a 58 year old male that presents for No chief complaint on file. Patient is a 58-year-old male who presents with not feeling well. Still has diarrhea and sore throat. He also notes sinus pressure, nasal congestion, pn drip, sore throat, cough/productive, chills Smoker. Physical Exam There were no vitals filed for this visit. General: alert, no distress, well nourished, well developed, cooperative, and ill looking Head: Normocephalic, No masses, lesions, tenderness or abnormalities Eye Exam: PERRLA, extraocular movements intact, conjunctiva are pink and non- injected, sclera clear Lungs: chest symmetric with normal AP diameter, no chest deformities noted, normal respiratory rateand rhythm, diaphragmatic excursion normal I have reviewed the following results: Imaging results in the last 6 months XR CHEST 2 VIEWS Result Date: 03/02/2024 IMPRESSION: Patchy/hazy right lower lung opacity, which may represent pneumonia in the appropriate clinical context. Follow-up resolution is recommended. This exam was submitted to the radiology emergency communications officer worklist and the ordering provider will be notified that the final report is available in [facility]. Assessment and Plan Pneumonia of right lower lobe due to infectious organism (Primary) - Azithromycin 250 MG Oral Tablet (Zithromax); Take 2 tabs by mouth on the first day, then 1 tab daily on days two through five - XR CHEST 2 VIEWS; Future; Expected date: 03/28/2024 Wheeze - Albuterol Sulfate HFA 108 (90 Base) MCG/ACT Inhalation Aerosol Solution; Inhale 2 Puffs by mouth every 4 hours as needed for Wheezing. Other orders - Meloxicam 7.5 MG Oral Tablet (Mobic); Take 1 Tablet by mouth in the morning and 1 Tablet before bedtime. Wrap-Up Time: I spent a total of 20-29 minutes (exact time 22 mins) on the date of service in preparation, delivery, and documentation of the care provided to Chandan Scott excluding any time spent in the performance of separately billed services. Telemedicine: Patient location: HOME. I was in a hospital or clinic location. After connecting through televideo,patient was verified with two unique identifiers. Patient (or authorized legal employee representative) was then informed that this was a Telemedicine visit and being conducted confidentially over secure lines. Methods to assure confidentiality were taken. Patient acknowledged consent and understanding of pr ivacy and security of the Telemedicine visit. The patient agreed to participate. documented in this encounter Plan of Treatment Upcoming Encounters Date Type Department Care Team (Late st Contact Info) Description 04/10/2024 3:00 PM EDT Office Visit [facility]ology[facility] [phone] Kalani Haji CRNP [address] [place] [address] 12/04/2024 3:30 PM EST Cardiac Studies Cardiac Studies, [facility] 132 [facility] [place] [address] Scheduled Orders Name Type Priority Associated Diagnoses Orde r Schedule XR CHEST 2 VIEWS Medical Imaging Routine Pneumonia of right lower lobe due to infectious organism Expected: 03/28/2024, Expires: 06/14/2024 Scheduled Procedures Name Priority Associated Diagnoses Date/Ti [...] Cancer Screening 06/02/2027 Lipid Panel 06/30/2028 06/30/2023, 04/2 12/2021, 07/17/2016 Pneumococcal Vaccine: Pediatrics (0 to 5 [...] encounter Visit Diagnoses Diagnosis Pneumonia of right lower lobe due to infectious organism- Primary Wheeze Wheezing documented in this encounter Advance Directives Latest [...] Discussed due to patient's condition Care Teams Gas Technician Relationship Specialty Start Date End Date Ilya Irwin III, MD [address] [facility] [address] PCP - General Family Medicine 07/27/16 documented as of this encounter
--- OUTSIDE RECORDS SUMMARY | 2024-03-26 18:29 | External Medical Summary | Summary of Care ---
Author Name Unknown Organization [facility] Address [address] [place] [address] Phone [phone] Care Team Providers Care Furnace Setter Name Role Phone Alida MUNSON MD, Ilya Alcazar Primary Care Provider [phone] Encounter Details Date Type Department Care Team ([facility] st Contact Info) Description 03/02/[address] [facility] [address] [place], [place] [phone] Roger Geronimo PA-C [address] [place] [address] Allergies Active Allergy Reactions Criticality [...] mRNA, LNP-s, No Pre serve, 2-Dose Series ([employer]) 12/28/2020,12/07/2020 Pneumococcal Conjugate Vaccine, 20-valent (Prevn ar20) [...] encounter Miscellaneous Notes * Telephone Encounter - Roger Geronimo PA-C [...] 04/10/2024 3:00 PM EDT Office Visit Hematology/Oncology [facility] [phone] Kalani Haji CRNP [address] [place] [address] 12/04/2024 3:30 PM EST Cardiac Studies Cardiac Studies, [facility] 132 [facility] [place] [address] Scheduled Procedures Name Priority Associated Diagnoses Date/Ti [...] 05/28/2023, Additional history exists Colonoscopy 06/02/2027 06/02/2022, 12/2021, 05/07/2016, Additional history exists Colorectal Cancer Screening [...] Discussed due to patient's condition Care Teams Furnace Setter Relationship Specialty Start Date End Date Ilya Irwin III, MD [address] [place] [address] PCP - General Family Medicine 07/27/16 documented as of this encounter
--- OUTSIDE RECORDS SUMMARY | 2024-03-26 18:29 | External Medical Summary | Summary of Care ---
Author Name Unknown Organization [facility] Address [address] [place] [address] Phone [phone] Care Team Providers Care Community Outreach Manager Name Role Phone Alida MUNSON MD, Ilya Alcazar Primary Care Provider [phone] Reason for Visit * Reason Onset Date Comments Appointment 02/21/2024 Encounter Details Date Type Department Care Team (Late st Contact Info) Description 02/21/2024 Telephone Access Center, [place] [address] [facility] *DO NOT REMOVE THIS DEPARTMENT* [place], [place] [phone] Services, Scheduling [address] [place] [address] Appointment Allergies Active Allergy Reactions Criticality Noted Date [...] mRNA, LNP-s, No Pre serve, 2-Dose Series ([employer]) 12/28/2020,12/07/2020 Pneumococcal Conjugate Vaccine, 20-valent (Prevn ar20) [...] encounter Miscellaneous Notes * Telephone Encounter - Josefina Chávez OSA - 02/21/2024 12:27 PM EDT See other tele enc with the info on it to schedule * Telephone Encounter - Debo Coyle OSA - 02/21/2024 12:21 PM EDT Patient calling asking to set up phlebotomy. documented in this encounter Plan of Treatment Upcoming Encounters Date Type Department Care Team (Late st Contact Info) Description 04/10/2024 3:00 PM EDT Office Visit Hematology/Oncology [facility] 200 [facility] [phone] Kalani Haji CRNP [address] [place] [address] 12/04/2024 3:30 PM EST Cardiac Studies Cardiac Studies, [facility] 132 [facility] [place] [address] Scheduled Procedures Name Priority [...] Discussed due to patient's condition Care Teams Community Outreach Manager Relationship Specialty Start Date End Date Ilya Irwin III, MD 200 [facility] [place] [address] PCP - General Family Medicine 07/27/16 documented as of this encounter
--- OUTSIDE RECORDS SUMMARY | 2024-03-26 18:29 | External Medical Summary | Summary of Care ---
Author Name Unknown Organization [facility] Address [address] [place] [address] Phone [phone] Care Team Providers Care Cheese Factory Worker Name Role Phone Alida MUNSON MD, Ilya Alcazar Primary Care Provider [phone] Reason for Visit * Reason Onset Date Comments Cold Symptoms Fever Diarrhea Respiratory Infection 03/02/2024 Encounter Details Date Type Department Care Team (Latest Contact Info) Description 03/02/2024 11:00 AM EDT Convenient Care Visit [facility] [address] [place] [address] Roger Geronimo PA-C [address], [place] [id number] Upper respiratory tract infection, unspecified type*; Tobacco use disorder Allergies Active Allergy Reactions Criticality Noted Date Comments Oxycodone High 02/25/2022 Other reaction(s): CONFUSION, CRAZY FEELING Oxycodone-Acetaminop hen Neuro complications (Please comment) Medium 07/23/2010 documented as of this encounter (statuses as of 03/03/2024) Medications Medication Sig Dispensed Refills Start Date [...] before bedtime. 60 Tablet 5 09/10/2023 Active buPROPion extended release, SR, (WELLBUTRIN SR) 100 MG TB12 Take 1 Tablet by mouth in the morning. 0 06/14/2017 4 Discontinued documented as of this encounter (statuses as of 03/03/2024) Active Problems Problem Noted Date Diagnosed Date [...] as of this encounter (statuses as of 03/03/2024) Resolved Problems Problem Noted Date Diagnosed Date Resolved Date ACUTE STRESS 10/08/2007 07/23/2010 Acute cholecystitis 09/29/2002 05/15/20 05 documented as of this encounter (statuses as of 03/03/2024) Immunizations Name Administration Dates Next Due COVID-19 mRNA, LNP-s, No Pre serve, 2-Dose Series (Horsealot) 12/28/2020,12/07/2020 Pneumococcal Conjugate Vaccine, 20-valent (Prevn ar20) [...] Sign Reading Time Taken Comments Blood Pressure 120/64 03/02/2024 11:18 AM EDT Pulse 91 03/02/2024 11:18 AM EDT Temperature 37.3 C (99.2 F) 03/02/2024 11:18 AM E DT Respiratory Rate 18 03/02/2024 11:18 AM EDT Oxygen Saturation 94% 03/02/2024 11:18 AM EDT Inhaled Oxygen Concentration - - Weight 90.3 kg (199 lb) 03/02/2024 11:18 AM EDT Height 175.3 cm (5' 9") 03/02/2024 11:18 AM EDT Body Mass Index 29.39 03/02/2024 11:18 AM EDT documented in this encounter Functional [...] No 05/28/2023 documented as of this encounter Patient Instructions * Patient Instructions* Roger Geronimo PA-C - 03/02/2024 11:40 AM EDT Chest Xray at [facility] today. For diarrhea: Increase your intake of clear, non-sugary fluids while you continue to have symptoms. Consider adding electrolyte drinks such as Pedialyte, coconut water, or sports drinks. Give yourself some bowel rest, and do a bland diet over the next several days, gradually adding foods back in as tolerated. Yogurt and probiotic supplements (especially lactobacillus), may help as well. Often Culturelle is recommended Avoid high-fat or fried foods while you have symptoms, as these may further upset your GI tract. Anti-diarrhea medications: - in general, we recommend to avoid these and let the body rid itself of an toxins. - If you need to use these, however, imodium (or similar) can be used as long as you do not have a fever and stools are not bloody. - PeptoBismol is another medication that can provide relief from diarrhea, but also helps with upset stomach as well. (Note: PeptoBismol may turn your stools very dark in color). Follow-up with PCP in 3-5 days or return if no improvement or sooner if worsens or if you develop bloody stools. ED if acutely worsen. For flu-like symptoms: Albuterol inhaler 2 puffs up to every 4 hours as needed. Start a daily nasal spray such as Flonase, Nasacort, OR Nasonex. They work best if used consistently. In addition to one of these medicated nasal sprays use saline nasal spray to avoid dryness and thinout mucous Over the Counter (OTC) antihistamine (claritin, zyrtec, xyzal or matt) can also be helpful for sinus symptoms. OTC decongestants: Sudafed, Mucinex-D (may have to get from behind pharmacy counter; you have to show your ID) can be used for nasal/sinus congestion for just a few days. If you have high blood pressure, you can use Coricidin. OTC cough suppressants as needed, including delsym, robitussin, cough drops, honey. Continue supportive measures: Increase clear, non-sugary fluid intake. Get plenty of rest Use a cool mist vaporizer or humidifier daily and you can take hot showers for steam therapy. Do warm salt water gargles and/or chloraseptic throat spray, throat lozenges (Cepacol) for any sorethroat. Honey, if not concerned about diabetes or elevated blood sugar levels, can also be very helpful forsorethroat. You may also use ibuprofen or acetaminophen OTC for relief of pain or fevers. If you had a negative rapid strep test, we will inform you if your PCR ("the send out") comes back positive, and start you on antibiotics. Otherwise, you may assume the PCR was also negative. If you had a viral swab (e.g. COVID, Flu, RSV, or otherwise), we will notify you if you test positive. If you do not hear from us, assume your test was negative. Follow up with PCP or return if no improvement in a week, or sooner if worse. Go to the ED if any severe symptoms appear acutely documented in this encounter Progress Notes * Roger Geronimo PA-C - 03/02/2024 11:43 AM EDT Nursing Notes: Clarissa Patrick LPN 03/02/24 1146 Signed Chandan Scott is a 58 year old male who presents to walk-in clinic today complaining of Chief Complaint Patient presents with Cold Symptoms Fever Diarrhea Main Symptoms: cough, congestion, sinus pressure, fever and diarrhea Cause: unknown How lon days Tried: tylenol, advil, dayquil, nyquil, pepto bismol, allergy medicaiton, increased fluids Pt accompanied by: Chandan Scott is a 58 year old male who presents with upper and lower respiratory symptoms for 4 day(s) Patient was accompanied by Spouse. HPI Severity of Symptoms: Moderate Modifying Factors (what was done since onset of symptoms): see nurse note Timing (how often does it occur): constant Quality (feels like): flu-like Other associated Signs and Symptoms: nc, rhinorrhea, pnd, dry cough, sinus pressure f/s/ch, malaise, fatigue, Diarrhea, without nausea/vomiting. Denies sob, wheezing, cp, palp. 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 Bryant Temporomandibular joint disorders, unspecified 1995 same eval. per above Past Surgical History: Procedure Laterality Date COLONOSCOPY, DIAGNOSTIC (RECTUM) 05/07/2016 adenomatous & hyperplastic polyps, repeat 5 yrs/COLONOSCOPY FLEXIBLE PROXIMAL DIAGNOSTIC performed by Robbie Sampson MD at ENDOSCOPY [facility] COLONOSCOPY, DIAGNOSTIC (RECTUM) 06/02/2022 normal, repeat 5 yrs / COLONOSCOPY FLEXIBLE PROXIMAL DIAGNOSTIC performed by Robbie Sampson MD at ENDOSCOPY [facility] INJECTION OF EYE DRUG Left 08/18/2017 # 1 [facility], Dr. Balderas INJECTION OF EYE DRUG Left 10/12/2017 # 2 [facility], Dr. Balderas INJECTION OF EYE DRUG Left 12/07/2017 # 3 [facility]; Dr. Balderas INJECTION OF EYE DRUG Left 05/03/2018 # 4 [facility], INJECTION OF EYE DRUG Left 07/20/2018 # 5 [facility] OS, Dr. Balderas IR BIOPSY 04/13/2022 MISCELLANEOUS ORDER (HS ONLY) Left 08/18/2017 [facility] CONSENT SIGNED, Dr. Balderas REMOVAL OF CORNEAL F.B. W/SLIT LAMP Left "splinter of wood" removed REMOVAL OF PAROTID GLAND/TUMOR Right 08/11/2022 EXCISION PAROTID TUMOR LATERAL LOBE WITHOUT NERVE DISSECTION performed by Jon Purvis DO [place] [facility] REMOVAL OF PAROTID GLAND/TUMOR Left 05/28/2023 EXCISION PAROTID TOTAL WITH DISSECTION FACIAL NERVE performed by Jon Purvis DO at [place] [facility] REMOVE GALLBLADDER 10/02/2002 Dr. Vargas REVISION OF FOOT AND ANKLE age 6 months Right foot- corrective surgery for clubfoot REVISION OF FOOT AND ANKLE 06/1995 Right foot- triple arthrodesis- Dr. Palm Social History Tobacco Use Smoking status: Every Day Current packs/day: 0.00 Average packs/day: 1 pack/day for 25.0 years (25.0 ttl pk-yrs) Types: Cigarettes Start date: 08/24/1987 Last attempt to quit: 08/24/2012 Years since quittin.5 Smokeless tobacco: Former Tobacco comments: started smoking age 18. As of 09-06 smoking 2.5 pk /d Substance Use Topics Alcohol use: Yes Comment: rare wine with dinner Vaping/E-Cigarette Use Vaping/E-Cigarette Use Never User Vaping/E-Cigarette Substances Nicotine No Other No Flavoring No THC No Cannabidiol (CBD) No Vaping/E-Cigarette Devices Disposable No Pre-filled or Refillable Cartridge No Refillable Tank No Pre-filled Pod No Current Outpatient Medications Medication Sig Dispense Refill [...] by mouth every morning 90 Tablet 2 Meloxicam 7.5 MG Oral Tablet (Mobic) Take 1 Tablet by mouth in the morning and 1 Tablet before bedtime. 60 Tablet 5 No current facility-administered medications for this visit. Review of patient's allergies indicates: Allergen Reactions Oxycodone Other reaction(s): CONFUSION, CRAZY FEELING Percocet [Oxycodone-Acetaminophen] Neuro complications (Please comment) Family History Problem Relation Age of Onset Cancer Father age 68- unknown type cancer Neurological Disorder Mother alzheimers Glaucoma Mother Diabetes Uncle (Unspecified) Heart Disorder Brother a fib Other (Other) Brother fibromyalgia Eye Problems Other Denies family hx of retinal disease OBJECTIVE BP 120/64 | Pulse 91 | Temp 37.3 C (99.2 F) (Tympanic) | Resp 18 | Ht 1.753 m (5' 9") | Wt 90.3kg (199 lb) | SpO2 94% | BMI 29.39 kg/m | BSA 2.1 m Wt Readings from Last 1 Encounters: 03/02/24 90.3 kg (199 lb) General Appearance: awake, alert, no apparent distress HEENT: perrl and eomi tms - clear, normal light reflex, no erythema + red and irritated pharynx + sinus tenderness + turbinate engorgement and discharge Neck: normal, supple, no adenopathy Respiratory: no rhonchi, no wheezes, no crackles, + crackles, and reduced movement of air Heart: regular rate, regular rhythm, no murmurs , no rubs, and no gallops Skin: skin color, texture, turgor are normal, no rashes or significant lesions Patient Instructions Chest Xray at [facility] today. For diarrhea: Increase your intake of clear, non-sugary fluids while you continue to have symptoms. Consider adding electrolyte drinks such as Pedialyte, coconut water, or sports drinks. Give yourself some bowel rest, and do a bland diet over the next several days, gradually adding foods back in as tolerated. Yogurt and probiotic supplements (especially lactobacillus), may help as well. Often Culturelle is recommended Avoid high-fat or fried foods while you have symptoms, as these may further upset your GI tract. Anti-diarrhea medications: - in general, we recommend to avoid these and let the body rid itself of an toxins. - If you need to use these, however, imodium (or similar) can be used as long as you do not have a fever and stools are not bloody. - PeptoBismol is another medication that can provide relief from diarrhea, but also helps with upset stomach as well. (Note: PeptoBismol may turn your stools very dark in color). Follow-up with PCP in 3-5 days or return if no improvement or sooner if worsens or if you develop bloody stools. ED if acutely worsen. For flu-like symptoms: Albuterol inhaler 2 puffs up to every 4 hours as needed. Start a daily nasal spray such as Flonase, Nasacort, OR Nasonex. They work best if used consistently. In addition to one of these medicated nasal sprays use saline nasal spray to avoid dryness and thinout mucous Over the Counter (OTC) antihistamine (claritin, zyrtec, xyzal or matt) can also be helpful for sinus symptoms. OTC decongestants: Sudafed, Mucinex-D (may have to get from behind pharmacy counter; you have to show your ID) can be used for nasal/sinus congestion for just a few days. If you have high blood pressure, you can use Coricidin. OTC cough suppressants as needed, including delsym, robitussin, cough drops, honey. Continue supportive measures: Increase clear, non-sugary fluid intake. Get plenty of rest Use a cool mist vaporizer or humidifier daily and you can take hot showers for steam therapy. Do warm salt water gargles and/or chloraseptic throat spray, throat lozenges (Cepacol) for any sorethroat. Honey, if not concerned about diabetes or elevated blood sugar levels, can also be very helpful forsorethroat. You may also use ibuprofen or acetaminophen OTC for relief of pain or fevers. If you had a negative rapid strep test, we will inform you if your PCR ("the send out") comes back positive, and start you on antibiotics. Otherwise, you may assume the PCR was also negative. If you had a viral swab (e.g. COVID, Flu, RSV, or otherwise), we will notify you if you test positive. If you do not hear from us, assume your test was negative. Follow up with PCP or return if no improvement in a week, or sooner if worse. Go to the ED if any severe symptoms appear acutely ASSESSMENT AND PLAN URI (upper respiratory infection) (Primary) - SARS-COV-2 (COVID-19), NAAT - XR CHEST 2 VIEWS; Future; Expected date: 03/02/2024 Tobacco use disorder Consistent with viral etiology Will get Xray to r/o PNA d/t yassine ALLISON Follow Up: Return for Patient to follow up with Primary Care Provider as directed. | For: Patient to follow up with Primary Care Provider as directed Patient goals for plan of care were discussed Roger Geronimo PA-C [facility] [address] [address] documented in this encounter Nursing Notes * Clarissa Patrick LPN - 03/02/2024 11:16 AM EDT Chandan Scott is a 58 year old male who presents to walk-in clinic today complaining of Chief Complaint Patient presents with Cold Symptoms Fever Diarrhea Main Symptoms: cough, congestion, sinus pressure, fever and diarrhea Cause: unknown How lon days Tried: tylenol, advil, dayquil, nyquil, pepto bismol, allergy medicaiton, increased fluids Pt accompanied by: documented in this encounter Miscellaneous Notes * Result Encounter Note - Roger Geronimo PA-C - 03/03/2024 4:10 PM EDT Covid negative documented in this encounter Plan of Treatment Upcoming Encounters Date Type Department Care Team (Late st Contact Info) Description 04/10/2024 3:00 PM EDT Office Visit Hematology/Oncology [facility] [address] [id number] Kalani Haji CRNP [address] [facility] [place] [address] 12/04/2024 3:30 PM EST Cardiac Studies Cardiac Studies, [facility] [address] [place] [address] Scheduled Procedures Name Priority Associated [...] Procedure Name Priority Date/Time Associated Diagnosis Comments SARS-COV-2 (COVID-19), NAAT Routine 03/02/2024 11:38 AM EDT Upper respiratory tract infection, unspecified type documented in this encounter Results * XR CHEST 2 VIEWS (03/02/2024 12:08 PM EDT) Anatomical Region Laterality Modality Chest Digital Radiogra phy 03/02/2024 12:2 4 PM EDT Impressions 03/02/2024 12:22 PM EDT IMPRESSION: Patchy/hazy right lower lung opacity, which may represent pneumonia in the appropriate clinical context. Follow-up resolution is recommended. This exam was submitted to the radiology student liaison officer worklist and the ordering provider will be notified that the final report is available in EPIC. Narrative 03/02/2024 12:22 PM EDT EXAM: EXAM: XR CHEST 2 VIEWS DATE TIME: 03/02/2024 - 03/02/2024 12:08 pm HISTORY: 58 y/o M Rales LLL, r/o PNA COMPARISON: Chest radiograph 11/12/2022. FINDINGS: Patchy/hazy right lower lung opacity. No pleural effusion or pneumothorax. Cardiac silhouette is normal in size. Degenerative changes of the spine. Procedure Note Nicole Dewey MD - 03/02/2024 EXAM: EXAM: XR CHEST 2 VIEWS DATE TIME: 03/02/2024 - 03/02/2024 12:08 pm HISTORY: 58 y/o M Rales LLL, r/o PNA COMPARISON: Chest radiograph 11/12/2022. FINDINGS: Patchy/hazy right lower lung opacity. No pleural effusion orpneumothorax. Cardiac silhouette is normal in size. Degenerative changes of the spine. IMPRESSION IMPRESSION: Patchy/hazy right lower lung opacity, which may represent pneumonia in theappropriate clinical context. Follow-up resolution is recommended. This exam was submitted to the radiology student liaison officer worklist and theordering provider will be notified that the final report is available inEPIC. Roger Geronimo PA-C RADIOLOGY (R AD GENERAL) * SARS-COV-2 (COVID-19), NAAT (03/02/2024 11:38 AM EDT) SARS-CoV-2 (COVID-19) Result Negative Negative 03/02/2024 11:32 PM EDT [facility] Comment: 2019 Novel Coronavirus not detected. This express test was developed and its performance characteristics determined by [employer]. It has not been cleared or approved by the U.S. Food and Drug Administration (FDA). FDA does not require this test to go thru premarket FDA review. This test is used for clinical purposes. It should not be regarded as investigational or for research. This laboratory is certified under the Clinical Laboratory Improvement Amendments (CLIA) as qualified to perform high complexity clinical laboratory testing. This test is a nucleic acid amplification test (NAAT), a reverse transcriptase polymerase chain reaction (RT-PCR) test, or a Centers for Disease Control- acceptable equivalent. The test is performed in a high complexity Clinical Laboratory Improvement Amendments-(CLIA) certified laboratory. The test is acceptable for SARS-CoV-2 diagnosis, surveillance, and travel within the [place] and to most countries. Please check with local testing authorities about requirements before travel. The validation of bronchial specimens, tracheal aspirates, and sputum for this assay was developed and performance characteristics determined by [employer]. The validation of alternate specimen types has not been cleared or approved by the U.S. Food and Drug Administration (FDA). It has been determined that such clearance is not necessary. Upper Respiratory Nasopharyngeal swab / Unknown Non-blood Collection / Unknown 03/02/2024 11:38 AM EDT 03/02/2024 11:38 AM EDT Roger Geronimo PA-C LAB MICRO - GENERAL ORDERABLES [facility] [address] [place] [address] documented in this encounter Visit Diagnoses Diagnosis Upper respiratory tract infection, unspecified type- Primary Tobacco use disorder Upper respiratory tract infection, unspecified type documented in this encounter Advance Directives Latest [...] Discussed due to patient's condition Care Teams Cheese Factory Worker Relationship Specialty Start Date End Date Ilya Irwin III, MD [address] [place] [address] PCP - General Family Medicine 07/27/16 documented as of this encounter
--- OUTSIDE RECORDS SUMMARY | 2024-03-26 18:29 | External Medical Summary ---
Author Name Unknown Address Unknown Organization [id number]:[facility] [place] [address] [facility] [address] Laboratory Report Ordering Provider Test Date Status AYANNA ENGLISH 03/02/2024 11:38:28 Final For PreSurgery, Procedure, O B Admit, or Surveillance testing - Nasal Turbinate source preferred.

For Symptomatic testing - Nasopharyngeal source preferred.
null Observation Date Value Abnormality Reference (Units ) Status SARS Coronavirus 2 03/02/2024 11:38:28 Negative N egative Final 2018 Novel Coronavirus not d etected.

This express test was developed and its performance characteristics determined by [employer]. It has not been cleared or approved [...] (RT-PCR) test, or a Centers for Disease Control-acceptable equivalent. The test is performed in a high complexity Clinical Laboratory Improvement Amendments-(CLIA) certified laboratory. The test is acceptable for SARS-CoV-2 diagnosis, surveillance, and travel within the [place] and to most countries. Please check with local testing authorities about requirements before travel.

The validation of bronchial specimens, tracheal aspirates, and sputum for this assay was developed and performance characteristics determined by [employer] [facility]. The validation of alternate specimen types has not been cleared or approved by the U.S. Food and Drug Administration (FDA). It has been determined that such clearance is not necessary. Performing Location LAB[facility] - [address] [facility] [address]
--- OUTSIDE RECORDS SUMMARY | 2024-03-26 18:29 | External Medical Summary | Summary of Care ---
Author Name Unknown Organization [facility] Address [address] [place] [address] Phone [phone] Care Team Providers Care Carbonizer Name Role Phone Alida MUNSON MD, Ilya Alcazar Primary Care Provider [phone] Reason for Visit * Reason Onset Date Comments Cold Symptoms Fever Diarrhea Respiratory Infection 03/02/2024 Encounter Details Date Type Department Care Team (Latest Contact Info) Description 03/02/2024 11:00 AM EDT Convenient Care Visit [facility] [address] [place] [address] Roger Geronimo PA-C [address] [place], [place] [id number] Upper respiratory tract infection, unspecified type*; Tobacco [...] mRNA, LNP-s, No Pre serve, 2-Dose Series ([employer]) 12/28/2020,12/07/2020 Pneumococcal Conjugate Vaccine, 20-valent (Prevn ar20) [...] 03/02/2024 11:40 AM EDT Chest Xray at [facility] today. For diarrhea: Increase your intake [...] performed by Robbie Sampson MD at ENDOSCOPY [facility] COLONOSCOPY, DIAGNOSTIC (RECTUM) 06/02/2022 normal, repeat 5 yrs / COLONOSCOPY FLEXIBLE PROXIMAL DIAGNOSTIC performed by Robbie Sampson MD at ENDOSCOPY [facility] INJECTION OF EYE DRUG Left 08/18/2017 # 1 Avastin OS, Dr. Balderas INJECTION OF EYE DRUG Left 10/12/2017 # 2 Avastin OS, Dr. Balderas INJECTION OF EYE DRUG Left 12/07/2017 # 3 Avastin OS; Dr. Balderas INJECTION OF EYE DRUG Left 05/03/2018 # 4 Avastin OS, INJECTION OF EYE DRUG Left 07/20/2018 # 5 Avastin OS, Dr. Balderas IR BIOPSY 04/13/2022 MISCELLANEOUS ORDER ([facility] ONLY) Left 08/18/2017 AVASTIN OS CONSENT SIGNED, Dr. Balderas REMOVAL OF CORNEAL F.B. W/SLIT LAMP Left "splinter of wood" removed REMOVAL OF PAROTID GLAND/TUMOR Right 08/11/2022 EXCISION PAROTID TUMOR LATERAL LOBE WITHOUT NERVE DISSECTION performed by Jon Purvis DO at OR [facility] REMOVAL OF PAROTID GLAND/TUMOR Left 05/28/2023 EXCISION PAROTID TOTAL WITH DISSECTION FACIAL NERVE performed by Jon Purvis DO at OR [facility] REMOVE GALLBLADDER 10/02/2002 Dr. Vargas REVISION OF [...] significant lesions Patient Instructions Chest Xray at [facility] today. For diarrhea: Increase your intake [...] of care were discussed Roger Geronimo PA-C [facility] [address] [facility] [address] documented in this encounter Nursing Notes * [...] Pt accompanied by: documented in this encounter Plan of Treatment Upcoming Encounters Date Type Department Care Team (Late st Contact Info) Description 04/10/2024 3:00 PM EDT Office Visit Hematology/Oncology [facility] [address] [place] [address] Kalani Haji CRNP [address] [place] [address] 12/04/2024 3:30 PM EST Cardiac Studies [facility], [facility] [address] [facility] [address] Pending Results Name Type Priority Associated Diagnoses Date /Time SARS-COV-2 (COVID-19), NAAT Lab Routine Upper respiratory tract infection, unspecified type 03/02/2024 11:38 AM EDT Scheduled Procedures Name Priority Associated Diagnoses Date/Ti [...] Not on filedocumented as of this encounter Results * XR CHEST 2 VIEWS (03/02/2024 12:08 PM EDT) Anatomical Region Laterality Modality Chest Digital Radiogra phy 03/02/2024 12:2 4 PM EDT Impressions 03/02/2024 12:22 PM EDT IMPRESSION: Patchy/hazy right lower lung opacity, which may represent pneumonia in the appropriate clinical context. Follow-up resolution is recommended. This exam was submitted to the radiology associate loan officer worklist and the ordering provider will be notified that the final report is available in [facility]. Narrative 03/02/2024 12:22 PM EDT EXAM: EXAM: [...] This exam was submitted to the radiology associate loan officer worklist and theordering provider will be notified [facility] the [facility] Roger Geronimo PA-C RADIOLOGY (R AD GENERAL) documented in this encounter Visit Diagnoses Diagnosis [...] Discussed due to patient's condition Care Teams Carbonizer Relationship Specialty Start Date End Date Ilay Irwin III, MD [address] [place] [address] PCP - General Family Medicine 07/27/16 documented as of this encounter
--- OUTSIDE RECORDS SUMMARY | 2024-03-26 18:29 | External Medical Summary | Summary of Care ---
Author Name Unknown Organization [facility] Address [address] [place] [address] Phone [phone] Care Team Providers Care Wellhead Pumper Name Role Phone Alida MUNSON MD, Ilya Alcazar Primary Care Provider [phone] Reason for Visit * Reason Onset Date Comments Cold Symptoms Fever Diarrhea Respiratory Infection 03/02/2024 Encounter Details Date Type Department Care Team (Latest Contact Info) Description 03/02/2024 11:00 AM EDT Convenient Care Visit [facility] [address] [place] [address] Roger Geronimo PA-C [address] [place], [place] [phone] Upper respiratory tract infection, unspecified type*; Tobacco [...] mRNA, LNP-s, No Pre serve, 2-Dose Series ([employer]) 12/28/2020,12/07/2020 Pneumococcal Conjugate Vaccine, 20-valent (Prevn ar20) [...] 03/02/2024 11:40 AM EDT Chest Xray at [facility] today. For diarrhea: Increase your intake of [...] performed by Robbie Sampson MD at ENDOSCOPY [facility] COLONOSCOPY, DIAGNOSTIC (RECTUM) 06/02/2022 normal, repeat 5 yrs / COLONOSCOPY FLEXIBLE PROXIMAL DIAGNOSTIC performed by Robbie Sampson MD at ENDOSCOPY [facility] INJECTION OF EYE DRUG Left 08/18/2017 # [...] performed by Jon Purvis DO at OR [facility] REMOVAL OF PAROTID GLAND/TUMOR Left 05/28/2023 EXCISION PAROTID TOTAL WITH DISSECTION FACIAL NERVE performed by Jon Purvis DO at OR [facility] REMOVE GALLBLADDER 10/02/2002 Dr. Vargas REVISION OF [...] significant lesions Patient Instructions Chest Xray at [facility] today. For diarrhea: Increase your intake of [...] of care were discussed Roger Geronimo PA-C [facility] [address] [facility] [address] documented in this encounter Nursing Notes * [...] Care Team (Late st Contact Info) Description 03/02/2024 12:05 PM EDT Imaging Radiology [facility] [address] [address] Upper respiratory tract infection, unspecified type 04/10/2024 3:00 PM EDT Office Visit Hematology/Oncology [facility] [address] [place] [address] Kalani Haji CRNP [address] [place] [address] [place] [address] 12/04/2024 3:30 PM EST Cardiac Studies [address] Studies, [address] [address] Pending Results Name Type Priority Associated Diagnoses Date /Time SARS-COV-2 (COVID-19), NAAT Lab Routine Upper respiratory tract infection, unspecified type 03/02/2024 11:38 AM EDT XR CHEST 2 VIEWS Medical Imaging STAT Upper respiratory tract infection, unspecified type 03/02/2024 12:01 PM EDT Scheduled Orders Name Type Priority Associated Diagnoses Orde r Schedule XR CHEST 2 VIEWS Medical Imaging STAT Upper respiratory tract infection, unspecified type Expected: 03/02/2024, Expires: 04/02/2024 Scheduled Procedures Name Priority Associated Diagnoses Date/Ti [...] 05/28/2023, Additional history exists Colonoscopy 06/02/2027 06/02/2022, 08/0 12/2021, 05/07/2016, Additional history exists Colorectal Cancer [...] as of this encounter Visit Diagnoses Diagnosis Upper respiratory [...] Discussed due to patient's condition Care Teams Wellhead Pumper Relationship Specialty Start Date End Date Ilya Irwin III, MD [address] [place] [address] PCP - General Family Medicine 07/27/16 documented as of this encounter
--- OUTSIDE RECORDS SUMMARY | 2024-03-26 18:29 | External Medical Summary | Summary of Care ---
Author Name Unknown Organization [facility] Address [address] [place] [address] Phone [phone] Care Team Providers Care Drug Coordinator Name Role Phone Alida MUNSON MD, Ilya Alcazar Primary Care Provider [phone] Reason for Visit * Reason Onset Date Comments Other 02/17/2024 Encounter Details Date Type Department Care Team (Late st Contact Info) Description 02/17/2024 Telephone Hematology/Oncology [facility] [place] [address] [facility] [address] Eduardo Hewitt MD [address] [facility] [address] Other Allergies Active Allergy Reactions Criticality Noted Date Comments Oxycodone High 02/25/2022 Other reaction(s): CONFUSION, CRAZY FEELING Oxycodone-Acetaminop hen Neuro complications (Please comment) Medium 07/23/2010 documented as of this encounter (statuses as of 02/22/2024) Medications Medication Sig Dispensed Refills Start Date [...] 02/18/2024 Benzonatate 100 MG Oral Capsule (Tessalon Perlmarie)Indicatio ns:Acute cough Take 1 Capsule by mouth [...] as of this encounter (statuses as of 02/22/2024) Active Problems Problem Noted Date Diagnosed Date [...] as of this encounter (statuses as of 02/22/2024) Resolved Problems Problem Noted Date Diagnosed Date Resolved Date ACUTE STRESS 10/08/2007 07/23/2010 Acute cholecystitis 09/29/2002 05/15/20 05 documented as of this encounter (statuses as of 02/22/2024) Immunizations Name Administration Dates Next Due COVID-19 [...] Telephone Encounter - Josefina Chávez OSA - 02/22/2024 7:54 AM EDT Pt is scheduled for phle on 02/27 * Telephone Encounter - Josefina Chávez OSA - 02/21/2024 9:03 AM EDT Left message * Telephone Encounter - Leighann Guthrie LPN - 02/18/2024 4:10 PM EDT Left voicemail for patient to return call to schedule for a 1- hour phlebotomy, return number provided. Re: 1- hour treatment time- phlebotomy Hct is 54.4. * Telephone Encounter - Leighann Guthrie LPN - 02/18/2024 10:32 AM EDT Called and spoke with patient: Patient states he had a "hard time" getting out of his house since June, and "did not do" his lab work. Dr. Kash OSORIO: Situation: Patient denies attempting to contact office or going for his lab work the past months due to "car troubles". Patient states he now has his 's car to use. Patient complaint of following symptoms: Intermittent "Lightheaded" and "dizzy spells" Patient denies the following signs or symptoms: Weakness, fatigue, SOB or difficulty breathing, palpitations, or any s/s of distress at this time. What was done: Instructed patient to have his CBCD done today prior to his appointment with Cardiology at 3:30 pm. Patient verbalized understanding and will comply. Discussed Mobile lab services with patient in regards to checking his eligibility. Patient in agreement. * Telephone Encounter - Josefina Chávez OSA - 02/17/2024 3:41 PM EDT Pt is scheduled for follow up with otis but is asking about his phlebotomy that was missed on 06/2023 and he wasn't rescheduled? ( His wifes care broke down) Please advise if we can get him rescheduled Pt stated that his said that he was acting alittle weird like he does when he needs one> Please advise documented in this encounter Plan of Treatment Upcoming Encounters Date Type Department Care Team (Late st Contact Info) Description 02/28/2024 1:00 PM EDT Hem/Onc Treatment Hematology/Oncology Treatment, [place] [address] [place] [address] Rae, Chair 8 Hem On[address] [place] [address] 04/10/2024 3:00 PM EDT Office Visit Hematology/Oncology [address] [place] [phone] Otis Haji CRNP [address] [facility] [place] [address] 12/04/2024 3:30 PM EST Cardiac Studies Cardiac Studies, [facility] 132 [facility] [place] [address] Scheduled Procedures [...] Discussed due to patient's condition Care Teams Drug Coordinator Relationship Specialty Start Date End Date Ilya Irwin III, MD 200 [facility] [place] [address] PCP - General Family Medicine 07/27/16 documented as of this encounter
--- OUTSIDE RECORDS SUMMARY | 2024-03-26 18:29 | External Medical Summary | Summary of Care ---
Author Name Unknown Organization [facility] Address [address] [place] [address] Phone [phone] Care Team Providers Care Photo Journalist Name Role Phone Alida MUNSON MD, Ilya Alcazar Primary Care Provider [phone] Reason for Visit * Reason Onset Date Comments Other 02/17/2024 Encounter Details Date Type Department Care Team (Late st Contact Info) Description 02/17/2024 Telephone Hematology/Oncology [facility] [place] [facility] [address] Eduardo Hewitt MD [address] [facility] [address] Other Allergies Active Allergy Reactions Criticality Noted Date Comments Oxycodone High 02/25/2022 Other reaction(s): CONFUSION, CRAZY FEELING Oxycodone-Acetaminop hen Neuro complications (Please comment) Medium 07/23/2010 documented as of this encounter (statuses as of 02/18/2024) Medications Medication Sig Dispensed Refills Start Date [...] as of this encounter (statuses as of 02/18/2024) Active Problems Problem Noted Date Diagnosed Date [...] as of this encounter (statuses as of 02/18/2024) Resolved Problems Problem Noted Date Diagnosed Date Resolved Date ACUTE STRESS 10/08/2007 07/23/2010 Acute cholecystitis 09/29/2002 05/15/20 05 documented as of this encounter (statuses as of 02/18/2024) Immunizations Name Administration Dates Next Due COVID-19 [...] 04/10/2024 3:00 PM EDT Office Visit Hematology/Oncology [facility] 200 [facility] [place] [address] Otis Haji CRNP 400 [facility] [place] [address] 12/04/2024 3:30 PM EST Cardiac Studies Cardiac Studies, [facility] 132 [facility] [place] [address] Scheduled Procedures Name [...] Discussed due to patient's condition Care Teams Photo Journalist Relationship Specialty Start Date End Date Ilya Irwin III, MD 200 [facility] [place] [address] PCP - General Family Medicine 07/27/16 documented as of this encounter
--- OUTSIDE RECORDS SUMMARY | 2024-03-26 18:29 | External Medical Summary | Summary of Care ---
Author Name Unknown Organization [facility] Address [address] [place] [address] Phone [phone] Care Team Providers Care Classifying Machine Operator Name Role Phone Alida MUNSON MD, Ilya Alcazar Primary Care Provider [phone] Reason for Visit * Reason Onset Date Comments Other 02/17/2024 Encounter Details Date Type Department Care Team (Late st Contact Info) Description 02/17/2024 Telephone Hematology/Oncology [facility] [place] [address] [facility] [address] Eduardo Hewitt MD [address] [facility] [address] Other Allergies Active Allergy Reactions Criticality Noted [...] 3:00 PM EDT Office Visit Hematology/Oncology [facility] [address] [facility] [place] [address] Otis Haji CRNP [address] [place] [address] 12/04/2024 3:30 PM EST Cardiac Studies Cardiac Studies, [facility] 132 [facility] [place] [address] Scheduled Procedures Name Priority Associated Diagnoses [...] Discussed due to patient's condition Care Teams Classifying Machine Operator Relationship Specialty Start Date End Date Ilya Irwin III, MD 200 [place] [address] PCP - General Family Medicine 07/27/16 documented as of this encounter
--- OUTSIDE RECORDS SUMMARY | 2024-03-26 18:29 | External Medical Summary | Summary of Care ---
Author Name Unknown Organization [facility] Address [address] [place] [address] Phone [phone] Care Team Providers Care Crucible Packer Name Role Phone Alida MUNSON MD, Ilya Alcazar Primary Care Provider [phone] Encounter Details Date Type Department Care Team (Late st Contact Info) Description 02/23/2024 Orders Only Hematology/Oncology [facility] [place] [address] [place] [address] Eduardo Hewitt MD [address] [place] [address] Allergies Active Allergy Reactions Criticality Noted Date Comments Oxycodone High 02/25/2022 Other reaction(s): CONFUSION, CRAZY FEELING Oxycodone-Acetaminop hen Neuro complications (Please comment) Medium 07/23/2010 documented as of this encounter (statuses as of 02/23/2024) Medications Medication Sig Dispensed Refills Start Date [...] as of this encounter (statuses as of 02/23/2024) Active Problems Problem Noted Date Diagnosed Date [...] as of this encounter (statuses as of 02/23/2024) Resolved Problems Problem Noted Date Diagnosed Date Resolved Date ACUTE STRESS 10/08/2007 07/23/2010 Acute cholecystitis 09/29/2002 05/15/20 05 documented as of this encounter (statuses as of 02/23/2024) Immunizations Name Administration Dates Next Due COVID-19 mRNA, LNP-s, No Pre serve, 2-Dose Series ([employer]) 12/28/2020,12/07/2020 Pneumococcal Conjugate Vaccine, 20-valent (Prevn ar20) [...] No 05/28/2023 documented as of this encounter Plan of Treatment Upcoming Encounters Date Type Department Care Team (Late st Contact Info) Description 02/28/2024 1:00 PM EDT Hem/Onc Treatment Hematology/Oncology Treatment, [place] [address] [place] [phone] Rae, Chair 8 Hem Onc [place] [address] [place] [address] 04/10/2024 3:00 PM EDT Office Visit Hematology/Oncology [facility] [place] 200 [facility] [place] [address] Kalani Haji CRNP [address] [place] [address] 12/04/2024 3:30 PM EST Cardiac Studies Cardiac Studies, [facility] 132 [facility] [place] [address] Scheduled Procedures Name [...] Additional history exists Lipid Panel 06/30/2028 06/30/2023, /12/2021, 07/17/2016 Pneumococcal Vaccine: Pediatrics (0 to 5 [...] Discussed due to patient's condition Care Teams Crucible Packer Relationship Specialty Start Date End Date Ilya Irwin III, MD [address] [place] [address] PCP - General Family Medicine 07/27/16 documented as of this encounter
--- OUTSIDE RECORDS SUMMARY | 2024-03-26 18:30 | External Medical Summary | Summary of Care ---
Author Name Unknown Organization [facility] Address [address] [place] [place] [place] [address] Phone [phone] Care Team Providers Care Area Mechanic Name Role Phone Alida MUNSON MD, Ilya Alcazar Primary Care Provider [phone] Reason for Visit * Reason Onset Date Comments Appointment 12/03/2023 Encounter Details Date Type Department Care Team (Late st Contact Info) Description 12/03/2023 Telephone Cardiology [place] Cochran [address] [place] [address] Feng Pate DO [address] [facility] [place] [address] Appointment Allergies Active Allergy Reactions Criticality Noted Date Comments Oxycodone High 02/25/2022 Other reaction(s): CONFUSION, CRAZY FEELING Oxycodone-Acetaminop hen Neuro complications (Please comment) Medium 07/23/2010 documented as of this encounter (statuses as of 12/09/2023) Medications Medication Sig Dispensed Refills Start Date [...] for dizziness 90 Tab 0 03/05/2020 Active Benzonatate 100 MG Oral Capsule (Tessalon Perles)Indications: Acute cough Take 1 Capsule by mouth 3 times a day as needed for Cough. Do not cut, crush, or chew. 50 Capsule 1 11/12/2022 Active Albuterol Sulfate HFA 108 (90 Base) MCG/ACT Inhalation Aerosol SolutionIndications :Wheeze Inhale 2 Puffs by mouth every 4 hours as needed for Wheezing. 18 g 0 11/12/2022 Active Gabapentin 100 MG Oral Capsule (Neurontin) take 1 capsule by mouth every morning 1 capsule AT NOON and 1 capsule BEFORE BEDTIME MAY INCREASE TO 2 CAPS 3 TIMES A DAY FOR SHINGLE PAIN 180 Capsule 3 12/28/2022 Active Amoxicillin-Pot Clavulanate 875-125 MG Oral Tablet (Augmentin) Take 1 Tablet by mouth in the morning and 1 Tablet before bedtime. 20 Tablet 0 06/14/2023 Active Indapamide 1.25 MG Oral Tablet take 1 tablet by mouth every morning 90 Tablet 1 08/05/2023 Active Atorvastatin Calcium 40 MG Oral Tablet (Lipitor) take 1 tablet by mouth every morning 90 Tablet 2 08/23/2023 Active Meloxicam 7.5 MG Oral Tablet (Mobic) Take 1 Tablet by mouth in the morning and 1 Tablet before bedtime. 60 Tablet 5 09/10/2023 Active documented as of this encounter (statuses as of 12/09/2023) Active Problems Problem Noted Date Diagnosed Date [...] as of this encounter (statuses as of 12/09/2023) Resolved Problems Problem Noted Date Diagnosed Date Resolved Date ACUTE STRESS 10/08/2007 07/23/2010 Acute cholecystitis 09/29/2002 05/15/20 05 documented as of this encounter (statuses as of 12/09/2023) Immunizations Name Administration Dates Next Due COVID-19 mRNA, LNP-s, No Pre serve, 2-Dose Series ([employer]) 12/28/2020,12/07/2020 Pneumococcal Conjugate Vaccine, 20-valent (Prevn ar20) 05/13/2022 Seasonal Influenza, Quadrivalent, No Preserve, I M 07/10/2020,07/19/2019 TDAP (age 10 and older)(Boostrix) 10/21/2012 Zoster Vaccine Recombinant (Shingrix) 05/13/2022 documented as of this encounter Social History Tobacco Use Types Packs/Day Years Used Date Smoking Tobacco: Every Day Cigarettes 1 25 Last attempted to quit: 08/24/2012 Smokeless Tobacco: [...] encounter Miscellaneous Notes * Telephone Encounter - Adriane Townsend OSA - 12/09/2023 10:13 AM EST Called Pt to schedule, no answer, left detailed message on his identified VM with the 800 number tocall back if he would like to make an appointment. * Telephone Encounter - Kristy Gonzalez LPN - 12/08/2023 9:06 AM EST Patient needs follow up appt * Telephone Encounter - Feng Pate DO - 12/03/2023 8:36 AM EST Covering for Dr. Ryan ([facility] working at [facility] Please call patient and let him know his echocardiogram shows normal left ventricular ejection fraction and moderate aortic regurgitation his aortic root is slightly larger compared to echocardiogram. It appears patient has not been seen by Cardiology since . He will need to make an appointment for him to reestablish care with Cardiology so we can continue to monitor his valvular disease. documented in this encounter Plan of Treatment Upcoming Encounters Date Type Department Care Team (Late st Contact Info) Description 04/06/2024 1:45 PM EDT Office Visit Hematology/Oncology [place] [address] [place] [address] Eduardo Hewitt MD 200 [facility] [place] [address] Scheduled Procedures Name Priority Associated Diagnoses Date/Ti me COLONOSCOPY FLEXIBLE PROXIMAL DIAGNOSTIC Recall History of colon polyps Health Maintenance Due Date Last Done Comments Hepatitis B (1 of 3 - 3-dose series) 1964 HIV Screening 1979 Albumin/Creatinine Ratio 1982 Hepatitis C Screening 1982 LUNG CANCER SCREENING - USE SMARTSET 78744 2014 Depression Screening 12/26/2020 12/26/2019 Zoster Vaccines (2 of 2) 07/08/2022 05/13/2022 DTaP,Tdap,and Td Vaccines (2 - Td or Tdap) 10/21/2022 10/21/2012, 05/15/2005 COVID-19 Vaccine (3 - season) 2023 12/28/2020, 12/07/2020 Influenza Vaccine (FLU shot) (#1) 2023 07/10/2020, 07/19/2019 GFR 06/30/2024 06/30/2023, 04/01, 02/21/2022, Additional history exists Diabetes Screening 06/30/2026 06/30/2023, 0 05/28/2023, 05/28/2023, [...] Discussed due to patient's condition Care Teams Area Mechanic Relationship Specialty Start Date End Date Tate JEIMY, Ilya Alcazar MD 200 [place] [address] PCP - General Family Medicine 07/27/16 documented as of this encounter
--- OUTSIDE RECORDS SUMMARY | 2024-03-26 18:30 | External Medical Summary ---
Author Name Unknown Address Unknown Organization [facility] - [address] [facility] [place] [address] Laboratory Report Ordering Provider Test Date Status ELOISA JJ 02/18/2024 15:15:36 Final Observation Date Value Abnormality Reference (Units ) Status WBC, Total 02/18/2024 15:15:36 11.42 Above high normal 4 .00-10.80 (K/uL) Final RBC 02/18/2024 15:15:36 6.19 4.50-5.25 (M/uL) Final Hemoglobin 02/18/2024 15:15:36 18.2 Above high normal 1 4.0-16.8 (g/dL) Final HCT 02/18/2024 15:15:36 54.4 Above high normal 40 .0-48.4 (%) Final MCV 02/18/2024 15:15:36 87.9 82.0-99.5 (fL) Final MCH 02/18/2024 15:15:36 29.4 27.0-34.0 (pg) Final MCHC 02/18/2024 15:15:36 33.5 32.0-36.0 (g/dL) Final RDW 02/18/2024 15:15:36 14.7 11.5-15.5 (%) Final Platelets 02/18/2024 15:15:36 260 140-400 (K /uL) Final MPV 02/18/2024 15:15:36 10.6 6.6-11.1 ( fL) Final Performing Location [facility]1 0 - [address] [facility]. [place] [address]
--- OUTSIDE RECORDS SUMMARY | 2024-03-26 18:30 | External Medical Summary ---
Author Name Unknown Address Unknown Organization [facility] - [address] [place] [address] Laboratory Report Ordering Provider Test Date Status ELOISA JJ 02/18/2024 15:15:36 Final Observation Date Value Abnormality Reference (Units ) Status SYNC LEUKOCYTES IN BLOOD BY AUTOMATED COUNT 02/18/2024 15:15:36 11.42 Above high normal 4.00-10.80 (K/uL) Final Segs 02/18/2024 15:15:36 59.8 40.0-75.0 (%) Final Lymphs % 02/18/2024 15:15:36 29.9 18.0-42.0 (%) Final Monos 02/18/2024 15:15:36 7.1 1.0-11.0 (%) Final Eosinophils 02/18/2024 15:15:36 2.7 0.0-6.0 (%) Final Basos 02/18/2024 15:15:36 0.5 0.0-2.0 (%) Final Absolute Segs 02/18/2024 15:15:36 6.82 1.80-7.70 (K/uL) Final Lymphs, absolute 02/18/2024 15:15:36 3.42 1.00-4.80 (K/ul) Final Monos, Abs 02/18/2024 15:15:36 0.81 0.00-1.10 (K/uL) Final Eos, Abs 02/18/2024 15:15:36 0.31 0.00-0.70 (K/uL) Final Basos, Abs 02/18/2024 15:15:36 0.06 0.00-0.20 (K/uL) Final Performing Location [facility] - [address] [place] [address]
--- OUTSIDE RECORDS SUMMARY | 2024-03-26 18:30 | External Medical Summary | Summary of Care ---
Author Name Unknown Organization [facility] Address [address] [place] [address] Phone [phone] Care Team Providers Care Substance Abuse Prevention Coordinator Name Role Phone Alida MUNSON MD, Ilya Alcazar Primary Care Provider [phone] Encounter Details Date Type Department Care Team (Late st Contact Info) Description 02/17/2024 Telephone Hematology/Oncology [facility] [place] [address] [place] [phone] Eduardo Hewitt MD [address] [place] [address] Allergies Active Allergy Reactions Criticality Noted Date Comments Oxycodone High 02/25/2022 Other reaction(s): CONFUSION, CRAZY FEELING Oxycodone-Acetaminop hen Neuro complications (Please comment) Medium 07/23/2010 documented as of this encounter (statuses as of 02/17/2024) Medications Medication Sig Dispensed Refills Start Date [...] as of this encounter (statuses as of 02/17/2024) Active Problems Problem Noted Date Diagnosed Date [...] as of this encounter (statuses as of 02/17/2024) Resolved Problems Problem Noted Date Diagnosed Date Resolved Date ACUTE STRESS 10/08/2007 07/23/2010 Acute cholecystitis 09/29/2002 05/15/20 05 documented as of this encounter (statuses as of 02/17/2024) Immunizations Name Administration Dates Next Due COVID-19 [...] 02/18/2024 3:30 PM EDT Office Visit Cardiology, [facility] [address] [place] [address] Daksha Earl CRNP [address] [place] [address] 04/10/2024 3:00 PM EDT Office Visit Hematology/On[facility] [address] [facility] [phone] Otis [facility] [address] [facility] [place] [address] Scheduled Procedures Name Priority Associated Diagnoses Date/Ti [...] or Tdap) 10/21/2022 10/21/2012, 05/15/2005 COVID-19 Vaccine ( season) 2023 12/28/2020, 12/07/2020 GFR 06/30/2024 06/30/2023, [...] Discussed due to patient's condition Care Teams Substance Abuse Prevention Coordinator Relationship Specialty Start Date End Date Ilya Irwin III, MD [address] [facility] [address] PCP - General Family Medicine 07/27/16 documented as of this encounter
--- OUTSIDE RECORDS SUMMARY | 2024-03-26 18:30 | External Medical Summary | Summary of Care ---
Author Name Unknown Organization [facility] Address [address] [place] [address] Phone [phone] Care Team Providers Care Braid Cutter Name Role Phone Alida MUNSON MD, Ilya Alcazar Primary Care Provider [phone] Reason for Visit * Reason Onset Date Comments Other 02/17/2024 Encounter Details Date Type Department Care Team (Late st Contact Info) Description 02/17/2024 Telephone Hematology/Oncology [facility] [place] [address] [facility] [phone] Eduardo [facility] [address] [facility] [address] Other Allergies Active Allergy Reactions Criticality Noted [...] 02/18/2024 3:30 PM EDT Office Visit Cardiology, [facility] [address] [place] [address] Daksha Earl CRNP [address] [place] [address] 04/10/2024 3:00 PM EDT Office Visit Hematology/Oncology [facility] [place] [address] [facility] [phone] Otis Haji CRNP [address] [place] [id number] Scheduled Procedures Name Priority Associated Diagnoses Date/Ti [...] Additional history exists Lipid Panel 06/30/2028 06/30/2023, 04/12/2021, 07/17/2016 Pneumococcal Vaccine: Pediatrics (0 to 5 [...] Discussed due to patient's condition Care Teams Braid Cutter Relationship Specialty Start Date End Date Ilya Irwin III, MD [address] [place] [address] PCP - General Family Medicine 07/27/16 documented as of this encounter
--- OUTSIDE RECORDS SUMMARY | 2024-03-26 18:30 | External Medical Summary | Summary of Care ---
Author Name Unknown Organization [facility] Address [address] [place] [address] Phone [phone] Care Team Providers Care Under Presser Name Role Phone Alida MUNSON MD, Ilya Alcazar Primary Care Provider [phone] Reason for Visit * Reason Comments Outpatient Testing Encounter Details Date Type Department Care Team (Late st Contact Info) Description 02/18/2024 4:00 PM EDT Laboratory Laboratory, [facility] [address] [place] [phone] [facility] [address] [place] [address] Secondary polycythemia Allergies Active Allergy Reactions Criticality Noted Date [...] before bedtime. 60 Tablet 5 09/10/2023 Active Benzonatate 100 MG Oral Capsule (Tessalon Perles)Indication s:Acute cough Take 1 Capsule by mouth 3 times a day as needed for Cough. Do not cut, crush, or chew. 50 Capsule 1 11/12/2022 4 Discontinued Gabapentin 100 MG Oral Capsule (Neurontin) take 1 capsule by mouth every morning 1 capsule AT NOON and 1 capsule BEFORE BEDTIME MAY INCREASE TO 2 CAPS 3 TIMES A DAY FOR SHINGLE PAIN 180 Capsule 3 12/28/2022 4 Discontinued Amoxicillin-Pot Clavulanate 875-125 MG Oral Tablet (Augmentin) Take 1 Tablet by mouth in the morning and 1 Tablet before bedtime. 20 Tablet 0 06/14/2023 4 Discontinued documented as of this encounter [...] PM EDT Office Visit Hematology/Oncology [facility] [place] [address] [facility] [place] [place] [phone] Kalani Haji CRNP [address] [place] [address] Scheduled Procedures Name Priority Associated Diagnoses Date/Ti [...] Procedure Name Priority Date/Time Associated Diagnosis Comments DIFFERENTIAL, AUTOMATED STAT 02/18/2024 3:15 PM EDT Secondary polycythemia CBC STAT 02/18/2024 3:15 PM EDT Secondary polycythemia CBC STAT 02/18/2024 3:15 PM EDT Secondary polycythemia documented in this encounter Results * (ABNORMAL) DIFFERENTIAL, AUTOMATED (02/18/2024 3:15 PM EDT) WBC 11.42(H) 4.00 - 10.80 K/uL 02/18/2024 3:22 PM EDT [facility] Neutrophils % 59.8 40.0 - 75.0 % 02/18/2024 3:22 PM EDT [facility] Lymphocytes % 29.9 18.0 - 42.0 % 02/18/2024 3:22 PM EDT [facility] Monocytes % 7.1 1.0 - 11.0 % 02/18/2024 3:22 PM EDT [facility] Eosinophils % 2.7 0.0 - 6.0 % 02/18/2024 3:22 PM EDT [facility] Basophils % 0.5 0.0 - 2.0 % 02/18/2024 3:22 PM EDT [facility] Absolute Neutrophils 6.82 1.80 - 7.70 K/uL 02/18/2024 3:22 PM EDT [facility] Absolute Lymphocytes 3.42 1.00 - 4.80 K/ul 02/18/2024 3:22 PM EDT [facility] Absolute Monocytes 0.81 0.00 - 1.10 K/uL 02/18/2024 3:22 PM EDT [facility] Absolute Eosinophils 0.31 0.00 - 0.70 K/uL 02/18/2024 3:22 PM EDT [facility] Absolute Basophils 0.06 0.00 - 0.20 K/uL 02/18/2024 3:22 PM EDT [facility] Blood Venous blood specimen / Unknown Venipuncture / Unknown 02/18/2024 3:15 PM EDT 02/18/2024 3:15 PM EDT Eduardo Hewitt MD LAB BLOOD ORDERABLES [facility] [address] [place] [address] * (ABNORMAL) CBC (02/18/2024 3:15 PM EDT) WBC 11.42(H) 4.00 - 10.80 K/uL 02/18/2024 3:22 PM EDT [facility] RBC 6.19 4.50 - 5.25 M/uL 02/18/2024 3:22 PM EDT [facility] HGB 18.2(H) 14.0 - 16.8 g/dL 02/18/2024 3:22 PM EDT [facility] HCT 54.4(H) 40.0 - 48.4 % 02/18/2024 3:22 PM EDT [facility]10 MCV 87.9 82.0 - 99.5 fL 02/18/2024 3:22 PM EDT [facility]10 MCH 29.4 27.0 - 34.0 pg 02/18/2024 3:22 PM EDT [facility]10 MCHC 33.5 32.0 - 36.0 g/dL 02/18/2024 3:22 PM EDT [facility] RDW 14.7 11.5 - 15.5 % 02/18/2024 3:22 PM EDT [facility]10 PLT 260 140 - 400 K/uL 02/18/2024 3:22 PM EDT [facility] MPV 10.6 6.6 - 11.1 fL 02/18/2024 3:22 PM EDT [facility] Blood Venous blood specimen / Unknown Venipuncture / Unknown 02/18/2024 3:15 PM EDT 02/18/2024 3:15 PM EDT Eduardo Hewitt MD LAB BLOOD ORDERABLES [facility] [place] [address] documented in this encounter Visit Diagnoses Diagnosis Secondary polycythemia Polycythemia, secondary documented in this encounter Advance Directives Latest [...] Discussed due to patient's condition Care Teams Under Presser Relationship Specialty Start Date End Date Ilya Irwin III, MD [address] [facility] [place], [place] [address] PCP - General Family Medicine 07/27/16 documented as of this encounter
--- NOTE | 2024-03-26 18:43 | Emergency Department Note ---
Impression & Plan Lung mass, Liver mass, Leukocytosis ED Provider Note NAME: UNA PINO AGE: 58 SEX: M : 1965 ARRIVES VIA: Walk-In INFORMANT: Patient ED PROVIDER(S): Richard Woodall DO CHIEF COMPLAINT: abdominal pain HPI: Patient is a 58-year-old male with a past medical history of hemochromatosis, polycythemia, pneumonia who presents to the ER for abdominal pain which started 3 days ago. He notes that initially started on the left side is now on the right side and radiates up into the upper chest from the right lower and left lower quadrants. Associate with nausea but no vomiting. He notes he feels very bloated. Denies any headache or change in vision. He had a cough and congestion and pneumonia about 5 weeks ago. He notes since then he has been having pain throughout his chest which is worse with twisting, turning, bending and any palpation as well as breathing. Denies any swelling of the legs. No shortness of breath. No dysuria, urgency, or frequency. No fevers. No other exacerbating or remitting factors. ADDITIONAL HISTORY OBTAINED: Per HPI Chronic Medical/Social Conditions Affecting Care: Per HPI PAST MEDICAL HISTORY:See Below PAST SURGICAL HISTORY:See Below FAMILY HISTORY:See Below SOCIAL HISTORY:See Below HOME MEDICATIONS:See Below ALLERGIES:See Below VITALS:See Below PHYSICAL EXAMINATION: GENERAL: Sitting up in bed, alert, well appearing, well nourished, no distress, non-toxic EYE EXAM: normal conjunctiva. PERRL and EOM's grossly intact. OROPHARYNX: no exudate, no erythema, lips, buccal mucosa, and tongue normal and mucous membranes are moist NECK: supple, no nuchal rigidity, no adenopathy, non-tender LUNGS: Clear to auscultation. Normal chest wall mechanics HEART: no murmurs, S1 normal and S2 normal CHEST: Reproducible pain throughout the entire anterior chest wall of the chest on light palpation ABDOMEN: abdomen soft, mild diffuse tenderness throughout the entire abdomen, normo-active bowel sounds, no masses, no rebound or guarding. BACK: Back is symmetrical on inspection and there is no deformity, no midline tenderness, no CVA tenderness. SKIN: no rashes and no bruising UPPER EXTREMITIES: upper extremities are grossly normal. LOWER EXTREMITIES: No pitting edema. NEURO EXAM: Normal sensorium, cranial nerves II-XII grossly intact, normal speech, no gross weakness of arms, no gross weakness of legs. No drift. Finger to nose intact. Gross sensation intact. MEDICAL DECISION MAKING: Patient is a 58-year-old male who presents ER for the above-stated complaint. IV was established blood work was obtained. Labs show mild leukocytosis of 13,000. No significant anemia. D-dimer was significantly elevated at 2400. BMP was remarkable for slightly elevated bilirubin at 1.2 and transaminitis. Troponin was negative. Patient was intermittently borderline hypoxic. UA was negative. CT of the chest and abdomen pelvis shows diffuse metastatic disease of unclear etiology although it appears to be favored pulmonary in nature. Discussed case with the hospitalist for further evaluation management and hopefully expedient workup. Consults/Care Managements Discussions: Per [facility] Triage Nursing notes reviewed. Limited review of prior medical records performed Vital Signs: reviewed and remarkable for tachy Differential diagnosis: Cardiac ischemia, aortic dissection, pulmonary embolism, pneumothorax, pneumonia, pericarditis, myocarditis, esophageal rupture, GERD, cholecystitis, pancreatitis, musculoskeletal, as well as other pathologies. ER treatment provided: See below Diagnostics interpreted by me include EKG and cardiac monitoring as listed below: -Cardiac Monitoring: An order was placed for continuous cardiac monitoring. The monitor shows a rate of 110 with sinus rhythm. -ECG: Sinus rhythm rate of 116 Normal axis No PVCs QTc [address] wave changes in the inferior leads -Laboratory studies:Interpreted by me as stated above in MDM and shown below. Imaging studies: Xrays: As interpreted by me: Portable AP upright 1 view of the chest shows right lower lobe infiltrate CTs show: CTA of the chest and abdomen was negative Procedures:none Critical Care: None Past Med/Surg History Problem List (Updated 03/26/24 @ 23:57 by Richard Woodall DO) Leukocytosis (Acute) Liver mass (Acute) Lung mass (Acute) Hemochromatosis Polycythemia Blood disorder (Chronic) Surgical History No pertinent past surgical history Family History Other Blood clot in vein Social History Smoking Status: Current every day smoker Tobacco Type: Cigarettes Preferred Language: [place] Feels Safe at Home: Yes Allergies Allergies Allergy/AdvReac Type Severity Reaction Status Date / Time oxycodone AdvReac Intermediate CONFUSION, Verified 03/26/24 21:26 CRAZY FEELING Home Meds Home Medications Medication Instructions Recorded Confirmed fluoxetine 40 mg capsule (Prozac) 40 mg PO QAM 04/23/19 03/26/24 meclizine 25 mg tablet 25 mg PO TID PRN Dizziness 04/23/19 03/26/24 acetaminophen 500 mg tablet 1,000 mg PO Q6H PRN Pain 12/12/19 03/26/24 (Tylenol Extra Strength) aspirin 81 mg tablet,delayed 81 mg PO DAILY 02/25/22 03/26/24 release indapamide 1.25 mg tablet 1.25 mg PO QAM 02/25/22 03/26/24 meloxicam 15 mg tablet 15 mg PO QAM 02/25/22 03/26/24 albuterol sulfate 90 mcg/actuation 2 puff inhalation Q4H PRN Wheezing 03/26/24 03/26/24 aerosol inhaler atorvastatin 40 mg tablet 40 mg PO QAM 03/26/24 03/26/24 sildenafil 25 mg tablet (Viagra) 25 mg PO DIRECTED PRN Sexual 03/26/24 03/26/24 Activity Results & Data (ED) Vital Signs Vital Signs - 24 hr 03/26/24 18:28 03/26/24 18:44 03/26/24 19:00 Temperature 36 C L Temperature Source Temporal Artery Scan Pulse Rate 115 H 107 H Pulse Rate [Apical] 102 H Respiratory Rate 18 23 Respiratory Effort / Characteristics Non-Labored Respiratory Depth Normal Respiratory Pattern Regular Blood Pressure 132/79 Blood Pressure [Right Arm] 115/75 Blood Pressure Mean 96 Blood Pressure Mean [Right Arm] 88 Pulse Oximetry 91 91 Oxygen Delivery Method Room Air Room Air Sepsis Recent Fever Within 48 Hours No Sepsis New/Unexplained Change in Mental Status N/A Sepsis Action Taken by Nursing No Action Required 03/26/24 20:00 03/26/24 20:30 03/26/24 21:00 Temperature Temperature Source Pulse Rate Pulse Rate [Apical] 87 86 92 H Respiratory Rate 19 17 21 Respiratory Effort / Characteristics Respiratory Depth Respiratory Pattern Blood Pressure Blood Pressure [Right Arm] 121/70 100/63 106/71 Blood Pressure Mean Blood Pressure Mean [Right Arm] 87 75 82 Pulse Oximetry 90 90 91 Oxygen Delivery Method Room Air Room Air Room Air Sepsis Recent Fever Within 48 Hours Sepsis New/Unexplained Change in Mental Status Sepsis Action Taken by Nursing 03/26/24 21:30 03/26/24 22:40 03/26/24 23:00 Temperature Temperature Source Pulse Rate 82 Pulse Rate [Apical] 82 83 Respiratory Rate 17 22 Respiratory Effort / Characteristics Respiratory Depth Respiratory Pattern Blood Pressure Blood Pressure [Right Arm] 114/68 127/75 Blood Pressure Mean Blood Pressure Mean [Right Arm] 83 92 Pulse Oximetry 91 90 Oxygen Delivery Method Room Air Room Air Sepsis Recent Fever Within 48 Hours Sepsis New/Unexplained Change in Mental Status Sepsis Action Taken by Nursing Laboratory Data 03/26/24 18:43 03/26/24 18:43 Lab Results 03/26/24 03/26/24 Range/Units 18:43 21:30 WBC 13.13 H (4.8-10.8) K/ul RBC 5.87 (4.70-6.10) M/uL Hgb 17.0 (14.0-18.0) g/dl Hct 50.6 (42.0-52.0) % MCV 86.2 (80.0-100.0) fL MCH 29.0 (25.0-34.0) pg MCHC 33.6 (32.0-36.0) g/dL RDW Std Deviation 48.1 H (36.4-46.3) fL RDW Coeff of Margy 15.6 H (11.5-14.5) % Plt Count 262 (130-400) K/uL MPV 11.9 (9.4-12.4) fL Immature Gran % (Auto) 0.3 % Neut % (Auto) 67.7 % Lymph % (Auto) 22.6 % Caroline % (Auto) 6.9 % Eos % (Auto) 1.7 % Baso % (Auto) 0.8 % Neut # (Auto) 8.89 H (1.40-6.50) K/uL Lymph # (Auto) 2.97 (1.20-3.40) K/uL Caroline # (Auto) 0.91 H (0.11-0.59) K/uL Eos # (Auto) 0.22 (0.00-0.50) K/uL Baso # (Auto) 0.10 (0.00-0.20) K/uL Immature Gran # (Auto) 0.04 (0.01-0.20) K/uL D-Dimer 2420 H* (0-500) ug/L FEU Sodium 137 (136-145) mmol/L Potassium 4.3 (3.5-5.1) mmol/L Chloride 103 (98-107) mmol/L Carbon Dioxide 25 (21-32) mmol/L Anion Gap 9 (3-11) BUN 14 (6-23) mg/dl Creatinine 0.76 (0.6-1.4) mg/dl Est Cr Clr Drug Dosing 115.2 ml/min Est GFR ( Amer) 115.7 ml/min Est GFR (Non-Af Amer) 99.9 ml/min BUN/Creatinine Ratio 18.4 (10-20) Glucose 85 (70-99(Fasting)) mg/dl Calcium 9.3 (8.6-10.3) mg/dl Total Bilirubin 1.2 H (0.2-1.0) mg/dl AST 154 H (13-39) U/L ALT 131 H (7-52) U/L Alkaline Phosphatase 814 H (34-104) U/L Troponin I High Sens 11.5 (0-20) pg/ml Total Protein 7.2 (6.0-8.3) gm/dl Albumin 3.8 (3.4-5.0) gm/dl Globulin 3.4 (2.5-4.0) gm/dl Albumin/Globulin Ratio 1.1 (0.9-2) Lipase 44 (11-82) U/L Urine Color Yellow Urine Appearance Clear (Clear) Urine pH 7.5 (4.5-7.5) Ur Specific [place] 1.010 (1.000-1.030) Urine Protein 1+ H (Negative) Urine Glucose (UA) Negative (Negative) Urine Ketones Negative (Negative) Urine Blood Negative (Negative) Urine Nitrite Negative (Negative) Urine Bilirubin 1+ H (Negative) Urine Urobilinogen Negative (Negative) Ur Leukocyte Esterase Negative (Negative) Urine RBC 0-2 (0-2) /hpf Urine WBC 0-5 (0-5) /hpf Ur Epithelial Cells 0-2 (0-2) /hpf Urine Bacteria None Seen (None Seen) Administered Medications Discontinued Medications Sodium Chloride (Nss) 1,000 mls @ 999 mls/hr IV .Q1H1M ONE Stop: 03/26/24 19:39 Last Infusion: 03/26/24 20:00 Dose: Infused Documented By: Admin: 03/26/24 18:47 Dose: 999 mls/hr Documented By: NICO Ioversol (Optiray 320 125ml) 119 ml IV ONCE ONE Stop: 03/26/24 20:08 Last Admin: 03/26/24 20:07 Dose: 119 ml Documented By: EDK Imaging Data Radiologist's Impression: Chest X-Ray 03/26/24 18:38 XR chest 1V portable CLINICAL HISTORY: Chest pain, nonspecific TECHNIQUE: Single frontal radiograph of the chest was obtained. Comparison: Comparison is made to chest radiograph 12/12/2019 FINDINGS: No lines and tubes are seen. The cardiomediastinal silhouette is normal. Right lower lung airspace opacity is seen. No evidence of pleural effusion or pneumothorax. IMPRESSION: Right lower lung airspace opacity may reflect atelectasis, although pneumonia/aspiration cannot be excluded. ACT 112: Negative or not required by law. Electronically signed by: Kareem Veronica M.D. 03/26/2024 7:43 PM Abdomen/Pelvis CT 03/26/24 19:36 Exam(s): CT ABDOMEN + PELVIS With Contrast IV Amt: OPTIRAY 320 119ML EXAM: CT Abdomen and Pelvis With Intravenous Contrast CLINICAL HISTORY: diffuse abd pain. TECHNIQUE: Axial computed tomography images of the abdomen and pelvis with intravenous contrast. CTDI is 25.74 mGy and DLP is 1345.96 mGy-cm. Automated exposure control was utilized for the study. A dose lowering technique was utilized adhering to the principles of ALARA. CONTRAST: OPTIRAY 320 119ML of IV contrast COMPARISON: CT abdomen and pelvis with contrast dated 02/25/2022 FINDINGS: Lung bases: There is a solid lobulated mass in the anterior right lower lobe extending to the diaphragm, measuring 3.8 x 3.4 x 2.3 cm. Curvilinear changes noted involving the adjacent right middle lobe. No consolidation. ABDOMEN: Liver: There is extensive and diffuse abnormal heterogeneously hypoattenuating lesions throughout the liver with near-complete replacement of the hepatic parenchyma. The liver is now markedly enlarged, measuring up to 24.6 cm in craniocaudal length. The largest abnormal lesions are noted at the dome of the diaphragm with the single largest lesion measuring 6.3 x 5.7 x 3.5 cm. Gallbladder and bile ducts: Cholecystectomy. No ductal dilation. Pancreas: Unremarkable. No mass. No ductal dilation. Spleen: Unremarkable. No splenomegaly. Adrenals: Unremarkable. No mass. Kidneys and ureters: Kidneys demonstrate normal enhancement. The presumed cortical cyst without internal enhancing features is larger involving the superior lateral left kidney, now measuring 2.2 cm from 1.5 cm previously. No hydronephrosis or obstructing nephrolithiasis. Stomach and bowel: No evidence for bowel obstruction. No asymmetric bowel mucosal abnormality. Mild stool burden. PELVIS: Appendix: A normal caliber appendix is noted along the anterior and lateral pelvis. Bladder: Unremarkable. No mass. Reproductive: Unremarkable as visualized. ABDOMEN and PELVIS: Intraperitoneal space: Trace free fluid in the pelvis is noted without loculation. No free air. Bones/joints: No acute fracture. No dislocation. Soft tissues: Unremarkable. Vasculature: Atherosclerotic calcification of the aorta. No dissection or aneurysm. Lymph nodes: No significant abdominal or retroperitoneal lymphadenopathy. IMPRESSION: 1. There is extensive and diffuse abnormal heterogeneously hypoattenuating lesions throughout the liver with near-complete replacement of the hepatic parenchyma. The liver is now markedly enlarged, measuring up to 24.6 cm in craniocaudal length. The largest abnormal lesions are noted at the dome of the diaphragm with the single largest lesion measuring 6.3 x 5.7 x 3.5 cm. Findings are consistent with metastatic disease. 2. There is a solid lobulated mass in the anterior right lower lobe extending to the diaphragm, measuring 3.8 x 3.4 x 2.3 cm. Differential consideration includes primary neoplasm of the lung versus metastatic disease. 3. Trace free fluid in the pelvis is noted without loculation. This is presumed reactive from the hepatic process. Electronically signed by: Tom Burgos MD 03/26/24 22:06 PM Chest CTA 03/26/24 19:36 Exam(s): CTA CHEST IV Amt: OPTIRAY 320 119ML EXAM: CT Angiography Chest With Intravenous Contrast CLINICAL HISTORY: Evaluate for PE. TECHNIQUE: Axial computed tomographic angiography images of the chest with intravenous contrast. CTDI is 19.71 mGy and DLP is 646.41 mGy-cm. Automated exposure control was utilized for the study. A dose lowering technique was utilized adhering to the principles of ALARA. MIP reconstructed images were created and reviewed. COMPARISON: No relevant prior studies available. FINDINGS: Pulmonary arteries: No evidence for pulmonary embolism. Aorta: No acute findings. No thoracic aortic aneurysm. Lungs: Images and abnormal solid mass lesion with heterogeneous internal vascular flow involving the anterior right lower lobe measuring 4.1 x 3.1 x 2.4 cm. Curvilinear atelectatic changes involving the inferolateral right middle lobe. The lungs are otherwise well-aerated without definite additional lesions are airspace consolidation. Minimal curvilinear changes noted at the lung bases. Pleural space: Trace subcentimeter right pleural effusion noted in the posterior costophrenic margin. No loculation. No pneumothorax. Heart: Unremarkable. No cardiomegaly. No significant pericardial effusion. Bones/joints: No acute fracture. No dislocation. Soft tissues: Unremarkable. Lymph nodes: An abnormal soft tissue mass is noted in the inferior right hilum with attenuation of the regional pulmonary artery structures and complete occlusion of the proximal right middle lobe bronchial segments. Subcarinal lymphadenopathy noted measuring 3.2 cm in diameter. IMPRESSION: 1. Images and abnormal solid mass lesion with heterogeneous internal vascular flow involving the anterior right lower lobe measuring 4.1 x 3.1 x 2.4 cm. Favor primary lung neoplasm over metastatic disease. 2. An abnormal soft tissue mass is noted in the inferior right hilum with attenuation of the regional pulmonary artery structures and complete occlusion of the proximal right middle lobe bronchial segments. In addition, there is prominent subcarinal lymphadenopathy noted, consistent with metastatic disease. 3. No evidence for pulmonary embolism. Electronically signed by: Tom Burgos MD 03/26/24 22:20 PM Discharge Plan Visit Data Chief Complaint: Chest Pain Stated Complaint: BLOATING, CHEST/RIB/UPPER ABD PAIN, RT SHOULDER P ED Provider: Richard Woodall Discharge Problem: Lung mass, Liver mass, Leukocytosis Forms Stand Alone Forms: My [facility] [employer] Prescriptions Prescriptions: No Action fluoxetine [Prozac] 40 mg Capsule 40 mg PO QAM meclizine 25 mg Tablet 25 mg PO TID PRN (Reason: Dizziness) acetaminophen [Tylenol Extra Strength] 500 mg Tablet 1,000 mg PO Q6H PRN (Reason: Pain) meloxicam 15 mg tablet 15 mg PO QAM aspirin 81 mg Tablet,Delayed Release (Dr/Ec) 81 mg PO DAILY indapamide 1.25 mg tablet 1.25 mg PO QAM atorvastatin 40 mg tablet 40 mg PO QAM sildenafil [Viagra] 25 mg Tablet 25 mg PO DIRECTED PRN (Reason: Sexual Activity) Rx Instructions: administer 30 minutes to 4 hours before activity albuterol sulfate 90 mcg/actuation HFA aerosol inhaler 2 puff INHALATION Q4H PRN (Reason: Wheezing) Referrals Referrals: Ilya Irwin MD [Primary Care Provider] - Discharge Problem: Leukocytosis Qualifiers: Leukocytosis type: unspecified Qualified Code(s): D72.829 - Elevated white blood cell count, unspecified
[2024-03-26] MEDS: SODIUM CHLORIDE 0.9% 1,000 ML IV ONE (18:47)
[2024-03-26 19:03] LABS: Basophils % (auto) 0.8 %; Eosinophils # (auto) 0.22 K/uL (0.00-0.50); Eosinophils % (auto) 1.7 %; Hematocrit (blood only) 50.6 % (42.0-52.0); Immature Granulocytes # (auto) 0.04 K/uL (0.01-0.20); Immature Granulocytes % (auto) 0.3 %; Lymphocytes # (auto) 2.97 K/uL (1.20-3.40); Lymphocytes % (auto) 22.6 %; Mean Corpuscular Hgb Conc 33.6 g/dL (32.0-36.0); Mean Corpuscular Volume 86.2 fL (80.0-100.0); Mean Platelet Volume 11.9 fL (9.4-12.4); Monocytes # (auto) 0.91 K/uL (0.11-0.59); Monocytes % (auto) 6.9 %; Neutrophils # (auto) 8.89 K/uL (1.40-6.50); Neutrophils % (auto) 67.7 %; Platelet Count 262 K/uL (130-400); RDW Coefficient of Variation 15.6 % (11.5-14.5); RDW Standard Deviation 48.1 fL (36.4-46.3); Red Blood Count 5.87 M/uL (4.70-6.10); White Blood Count 13.13 K/ul (4.8-10.8)
[2024-03-26 19:18] LABS: Albumin Globulin Ratio 1.1 (0.9-2); Albumin Level 3.8 gm/dl (3.4-5.0); BUN Creatinine Ratio 18.4 (10-20); Bilirubin,Total 1.2 mg/dl (0.2-1.0); Calcium 9.3 mg/dl (8.6-10.3); Creatinine Clr Calc Pharmacy 115.2 ml/min; Est GFR (African American) 115.7 ml/min; Est GFR (Non-African American) 99.9 ml/min; Globulin 3.4 gm/dl (2.5-4.0); Potassium 4.3 mmol/L (3.5-5.1); Total Protein 7.2 gm/dl (6.0-8.3)
[2024-03-26 19:23] LABS: Troponin I High Sensitivity 11.5 pg/ml (0-20)
[2024-03-26 19:36] LABS: D Dimer 2420 ug/L FEU (0-500)
--- NOTE | 2024-03-26 19:44 | XRay Report ---
XR chest 1V portable CLINICAL HISTORY: Chest pain, nonspecific TECHNIQUE: Single frontal radiograph of the chest was obtained. Comparison: Comparison is made to chest radiograph 12/12/2019 FINDINGS: No lines and tubes are seen. The cardiomediastinal silhouette is normal. Right lower lung airspace op acity is seen. No evidence of pleural effusion or pneumothorax. IMPRESSION: Right lower lung airspace opacity may reflect atelectasis, although pneumonia/aspiration cannot be ex cluded. ACT 112: Negative or not required by law. Electronically signed by: Kareem Veronica M.D. 03/26/2024 7:43 PM
[2024-03-26] MEDS: OPTIRAY 320 125ml IV ONE (20:07)
--- NOTE | 2024-03-26 22:07 | CT Scan Report ---
Exam(s): CT ABDOMEN + PELVIS With Contrast IV Amt: OPTIRAY 320 119ML EXAM: CT Abdomen and Pelvis With Intravenous Contrast CLINICAL HISTORY: diffuse abd pain. TECHNIQUE: Axial computed tomography images of the abdomen and pelvis with intravenous contrast. CTDI is 25.74 mGy and DLP is 1345.96 mGy-cm. Automated exposure control was utilized for the study. A dose lowering technique was utilized adhering to the principles of ALARA. CONTRAST: OPTIRAY 320 119ML of IV contrast COMPARISON: CT abdomen and pelvis with contrast dated 02/25/2022 FINDINGS: Lung bases: There is a solid lobulated mass in the anterior right lower lobe extending to the diaphragm, measuring 3.8 x 3.4 x 2.3 cm. Curvilinear changes noted involving the adjacent right middle lobe. No consolidation. ABDOMEN: Liver: There is extensive and diffuse abnormal heterogeneously hypoattenuating lesions throughout the liver with near-complete replacement of the hepatic parenchyma. The liver is now markedly enlarged, measuring up to 24.6 cm in craniocaudal length. The largest abnormal lesions are noted at the dome of the diaphragm with the single largest lesion measuring 6.3 x 5.7 x 3.5 cm. Gallbladder and bile ducts: Cholecystectomy. No ductal dilation. Pancreas: Unremarkable. No mass. No ductal dilation. Spleen: Unremarkable. No splenomegaly. Adrenals: Unremarkable. No mass. Kidneys and ureters: Kidneys demonstrate normal enhancement. The presumed cortical cyst without internal enhancing features is larger involving the superior lateral left kidney, now measuring 2.2 cm from 1.5 cm previously. No hydronephrosis or obstructing nephrolithiasis. Stomach and bowel: No evidence for bowel obstruction. No asymmetric bowel mucosal abnormality. Mild stool burden. PELVIS: Appendix: A normal caliber appendix is noted along the anterior and lateral pelvis. Bladder: Unremarkable. No mass. Reproductive: Unremarkable as visualized. ABDOMEN and PELVIS: Intraperitoneal space: Trace free fluid in the pelvis is noted without loculation. No free air. Bones/joints: No acute fracture. No dislocation. Soft tissues: Unremarkable. Vasculature: Atherosclerotic calcification of the aorta. No dissection or aneurysm. Lymph nodes: No significant abdominal or retroperitoneal lymphadenopathy. IMPRESSION: 1. There is extensive and diffuse abnormal heterogeneously hypoattenuating lesions throughout the liver with near-complete replacement of the hepatic parenchyma. The liver is now markedly enlarged, measuring up to 24.6 cm in craniocaudal length. The largest abnormal lesions are noted at the dome of the diaphragm with the single largest lesion measuring 6.3 x 5.7 x 3.5 cm. Findings are consistent with metastatic disease. 2. There is a solid lobulated mass in the anterior right lower lobe extending to the diaphragm, measuring 3.8 x 3.4 x 2.3 cm. Differential consideration includes primary neoplasm of the lung versus metastatic disease. 3. Trace free fluid in the pelvis is noted without loculation. This is presumed reactive from the hepatic process. Electronically signed by: Tom Burgos MD 03/26/24 22:06 PM
--- NOTE | 2024-03-26 22:21 | CT Scan Report ---
Exam(s): CTA CHEST IV Amt: OPTIRAY 320 119ML EXAM: CT Angiography Chest With Intravenous Contrast CLINICAL HISTORY: Evaluate for PE. TECHNIQUE: Axial computed tomographic angiography images of the chest with intravenous contrast. CTDI is 19.71 mGy and DLP is 646.41 mGy-cm. Automated exposure control was utilized for the study. A dose lowering technique was utilized adhering to the principles of ALARA. MIP reconstructed images were created and reviewed. COMPARISON: No relevant prior studies available. FINDINGS: Pulmonary arteries: No evidence for pulmonary embolism. Aorta: No acute findings. No thoracic aortic aneurysm. Lungs: Images and abnormal solid mass lesion with heterogeneous internal vascular flow involving the anterior right lower lobe measuring 4.1 x 3.1 x 2.4 cm. Curvilinear atelectatic changes involving the inferolateral right middle lobe. The lungs are otherwise well-aerated without definite additional lesions are airspace consolidation. Minimal curvilinear changes noted at the lung bases. Pleural space: Trace subcentimeter right pleural effusion noted in the posterior costophrenic margin. No loculation. No pneumothorax. Heart: Unremarkable. No cardiomegaly. No significant pericardial effusion. Bones/joints: No acute fracture. No dislocation. Soft tissues: Unremarkable. Lymph nodes: An abnormal soft tissue mass is noted in the inferior right hilum with attenuation of the regional pulmonary artery structures and complete occlusion of the proximal right middle lobe bronchial segments. Subcarinal lymphadenopathy noted measuring 3.2 cm in diameter. IMPRESSION: 1. Images and abnormal solid mass lesion with heterogeneous internal vascular flow involving the anterior right lower lobe measuring 4.1 x 3.1 x 2.4 cm. Favor primary lung neoplasm over metastatic disease. 2. An abnormal soft tissue mass is noted in the inferior right hilum with attenuation of the regional pulmonary artery structures and complete occlusion of the proximal right middle lobe bronchial segments. In addition, there is prominent subcarinal lymphadenopathy noted, consistent with metastatic disease. 3. No evidence for pulmonary embolism. Electronically signed by: Tom Burgos MD 03/26/24 22:20 PM
[2024-03-26 22:45] LABS: Appearance Urine Clear (Clear); Bilirubin Urine 1+ (Negative); Blood Urine Negative (Negative); Color Urine Yellow; Glucose Urine UA Negative (Negative); Ketones Urine Negative (Negative); Leukocyte Esterase Urine Negative (Negative); Nitrite Urine Negative (Negative); Protein Urine 1+ (Negative); Urobilinogen Urine Negative (Negative); pH Urine 7.5 (4.5-7.5)
[2024-03-26 22:59] LABS: Bacteria Urine None Seen (None Seen); Epithelial Cell Urine 0-2 /hpf (0-2); RBC Urine 0-2 /hpf (0-2); WBC Urine 0-5 /hpf (0-5)
--- NOTE | 2024-03-27 04:20 | History & Physical Report ---
Date of Service March 27, 2024 Assessment & Plan (1) Lung mass: Plan: 58-year-old male with past med history significant for hypertension, lumbar degenerative disc disease, secondary polycythemia, ongoing tobacco use, anxiety, chronic dizziness presents with on and off chest pains and also feeling of bloating in abdomen. Patient states symptoms of chest pain most times it comes when he climbs steps and resolves after resting. Also lately feeling bloating i n the abdomen. Denies shortness of breath. Has chronic cough. Denies fevers. No headache. Says is always dizzy. Has some runny nose. No sore throat. Appetite is okay. Few days back had diarrhea but that resolved now.. Couple days ago he had some black stool. Micturating okay. No rash. No swelling the legs. Hemodynamics are okay currently. Lung mass CT chest shows right lower lung mass. And also complete occlusion of the proximal right middle lobe bronchial segment. prominent sub carinal lymphadenopathy ongoing smoking pulmonary consult close monitor liver mass mostly cause of his bloating CT abdomen pelvis shows enlarged liver at 24.6 cm. Diffuse lesions throughout the liver with near complete replacement of the hepatic parenchyma. Abnormal lesions noted in the dome of the diaphragm. Findings are consistent with metastatic disease abnormal LFTs mostly from metastatic's disease lung or liver biopsy chest pains states on and off states mostly when he climbs steps EKG nonspecific findings. Initial troponin is okay. Will follow serial enzymes and echo and cardiac consult will keep him n.p.o. for now hyperlipidemia hold statin for transaminitis for now hypertension on indapamide we will monitor depression anxiety on Prozac tobacco abuse needs counseling DVT prophylaxis SCDs for now in anticipation of procedure disposition telemetry full code History of Present Illness Chief Complaint: On and off chest pains and feeling of bloating in the abdomen Primary Care Provider: Ilya Irwin MD 58-year-old male with past med history significant for hypertension, lumbar degenerative disc disease, secondary polycythemia, ongoing tobacco use, anxiety, chronic dizziness presents with on and off chest pains and also feeling of bloating in abdomen. Patient states symptoms of chest pain most times it comes when he climbs steps and resolves after resting. Also lately feeling bloating in the abdomen. Denies shortness of breath. Has chronic cough. Denies fevers. No headache. Says is always dizzy. Has some runny nose. No sore throat. Appetite is okay. Few days back had diarrhea but that resolved now.. Couple days ago he had some black stool. Micturating okay. No rash. No swelling the legs. Hemodynamics are okay currently. Past med history. As mentioned above past surgical history. Colonoscopy. Excision of right parotid tumor. Excision of left parotid tumor. Cholecystectomy. Right foot corrective surgery for clubfoot. Social history. . Smokes 1.5 pack cigarette daily since age of 18. alcohol occasional. No drug use. Family history. Father had cancer. Mother had glaucoma. Alzheimer's. Brother has A-fib. Allergies Allergy/AdvReac Type Severity Reaction Status Date / Time oxycodone AdvReac Intermediate CONFUSION, Verified 03/26/24 21:26 CRAZY FEELING Home Medications Medication Instructions Recorded Confirmed Type fluoxetine 40 mg capsule (Prozac) 40 mg PO QAM 04/23/19 03/26/24 History meclizine 25 mg tablet 25 mg PO TID PRN Dizziness 04/23/19 03/26/24 History acetaminophen 500 mg tablet 1,000 mg PO Q6H PRN Pain 12/12/19 03/26/24 History (Tylenol Extra Strength) aspirin 81 mg tablet,delayed 81 mg PO DAILY 02/25/22 03/26/24 History release indapamide 1.25 mg tablet 1.25 mg PO QAM 02/25/22 03/26/24 History meloxicam 15 mg tablet 15 mg PO QAM 02/25/22 03/26/24 History albuterol sulfate 90 mcg/actuation 2 puff inhalation Q4H PRN Wheezing 03/26/24 03/26/24 History aerosol inhaler atorvastatin 40 mg tablet 40 mg PO QAM 03/26/24 03/26/24 History sildenafil 25 mg tablet (Viagra) 25 mg PO DIRECTED PRN Sexual 03/26/24 03/26/24 History Activity Past Med/Surg History Problem List (Updated 03/26/24 @ 23:57 by Richard Woodall DO) Leukocytosis (Acute) Liver mass (Acute) Lung mass (Acute) Hemochromatosis Polycythemia Blood disorder (Chronic) Surgical History No pertinent past surgical history Family History Other Blood clot in vein Social History Smoking Status: Current every day smoker Tobacco Type: Cigarettes Cigarettes Per Day: 2-3; Do You Dip or Chew Tobacco: No; Hx Alcohol Use: No Hx Substance Use: No Preferred Language: Swazi Communication Ability: Effective 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 Lungs- clear to auscultation no wheezing or crackles Heart- regular rate and rhythm; no murmur, no gallop. Abdomen- normal bowel sounds, soft, nontender, no distension. Extremities- no pretibial edema, no erythema seen. Neuro- alert, oriented PERRL, EOMI; no facial palsy; no dysarthria; moves extremities. Skin- warm & dry Results & Data Results & Data Vital Signs (Past 12 Hours) Vital Signs Temp Pulse Pulse Resp BP BP Pulse Ox 03/27/24 02:45 91 H 03/27/24 02:30 92 H 23 115/67 91 03/27/24 00:01 81 18 133/71 91 03/26/24 23:00 83 22 127/75 90 03/26/24 22:40 82 03/26/24 21:30 82 17 114/68 91 03/26/24 21:00 92 H 21 106/71 91 03/26/24 20:30 86 17 100/63 90 03/26/24 20:00 87 19 121/70 90 03/26/24 19:00 102 H 23 115/75 91 03/26/24 18:44 107 H 03/26/24 18:28 36 C L 115 H 18 132/79 91 O2 Del Method 03/27/24 02:45 03/27/24 02:30 Room Air 05/27/24 00:01 Room Air 03/26/24 23:00 Room Air 03/26/24 22:40 03/26/24 21:30 Room Air 03/26/24 21:00 Room Air 03/26/24 20:30 Room Air 03/26/24 20:00 Room Air 03/26/24 19:00 Room Air 03/26/24 18:44 03/26/24 18:28 Room Air Diagnostic Findings Laboratory Results WBC 13.13 K/ul (4.8-10.8) H 03/26/24 18:43 RBC 5.87 M/uL (4.70-6.10) 03/26/24 18:43 Hgb 17.0 g/dl (14.0-18.0) 03/26/24 18:43 Hct 50.6 % (42.0-52.0) 03/26/24 18:43 MCV 86.2 fL (80.0-100.0) 03/26/24 18:43 MCH 29.0 pg (25.0-34.0) 03/26/24 18:43 MCHC 33.6 g/dL (32.0-36.0) 03/26/24 18:43 RDW Std Deviation 48.1 fL (36.4-46.3) H 03/26/24 18:43 RDW Coeff of Margy 15.6 % (11.5-14.5) H 03/26/24 18:43 Plt Count 262 K/uL (130-400) 03/26/24 18:43 MPV 11.9 fL (9.4-12.4) 03/26/24 18:43 Immature Gran % (Auto) 0.3 % 03/26/24 18:43 Neut % (Auto) 67.7 % 03/26/24 18:43 Lymph % (Auto) 22.6 % 03/26/24 18:43 [place] % (Auto) 6.9 % 03/26/24 18:43 Eos % (Auto) 1.7 % 03/26/24 18:43 Baso % (Auto) 0.8 % 03/26/24 18:43 Neut # (Auto) 8.89 K/uL (1.40-6.50) H 03/26/24 18:43 Lymph # (Auto) 2.97 K/uL (1.20-3.40) 03/26/24 18:43 [place] # (Auto) 0.91 K/uL (0.11-0.59) H 03/26/24 18:43 Eos # (Auto) 0.22 K/uL (0.00-0.50) 03/26/24 18:43 Baso # (Auto) 0.10 K/uL (0.00-0.20) 03/26/24 18:43 Immature Gran # (Auto) 0.04 K/uL (0.01-0.20) 03/26/24 18:43 D-Dimer 2420 ug/L FEU (0-500) H* 03/26/24 18:43 Sodium 137 mmol/L (136-145) 03/26/24 18:43 Potassium 4.3 mmol/L (3.5-5.1) 03/26/24 18:43 Chloride 103 mmol/L (98-107) 03/26/24 18:43 Carbon Dioxide 25 mmol/L (21-32) 03/26/24 18:43 Anion Gap 9 (3-11) 03/26/24 18:43 BUN 14 mg/dl (6-23) 03/26/24 18:43 Creatinine 0.76 mg/dl (0.6-1.4) 03/26/24 18:43 Est Cr Clr Drug Dosing 115.2 ml/min 03/26/24 18:43 Est GFR ( Amer) 115.7 ml/min 03/26/24 18:43 Est GFR (Non-Af Amer) 99.9 ml/min 03/26/24 18:43 BUN/Creatinine Ratio 18.4 (10-20) 03/26/24 18:43 Glucose 85 mg/dl (70-99(Fasting)) 03/26/24 18:43 Calcium 9.3 mg/dl (8.6-10.3) 03/26/24 18:43 Total Bilirubin 1.2 mg/dl (0.2-1.0) H 03/26/24 18:43 AST 154 U/L (13-39) H 03/26/24 18:43 ALT 131 U/L (7-52) H 03/26/24 18:43 Alkaline Phosphatase 814 U/L (34-104) H 03/26/24 18:43 Troponin I High Sens 11.5 pg/ml (0-20) 03/26/24 18:43 Total Protein 7.2 gm/dl (6.0-8.3) 03/26/24 18:43 Albumin 3.8 gm/dl (3.4-5.0) 03/26/24 18:43 Globulin 3.4 gm/dl (2.5-4.0) 03/26/24 18:43 Albumin/Globulin Ratio 1.1 (0.9-2) 03/26/24 18:43 Lipase 44 U/L (11-82) 03/26/24 18:43 Urine Color Yellow 03/26/24 21:30 Urine Appearance Clear (Clear) 03/26/24 21: Urine pH 7.5 (4.5-7.5) 03/26/24 21:30 Ur Specific [place] 1.010 (1.000-1.030) 03/26/24 21:30 Urine Protein 1+ (Negative) H 03/26/24 21:30 Urine Glucose (UA) Negative (Negative) 03/26/24 21:30 Urine Ketones Negative (Negative) 03/26/24 21:30 Urine Blood Negative (Negative) 03/26/24 21:30 Urine Nitrite Negative (Negative) 03/26/24 21: Urine Bilirubin 1+ (Negative) H 03/26/24 21:30 Urine Urobilinogen Negative (Negative) 03/26/24 21:30 Ur Leukocyte Esterase Negative (Negative) 03/26/24 21:30 Urine RBC 0-2 /hpf (0-2) 03/26/24 21:30 Urine WBC 0-5 /hpf (0-5) 03/26/24 21:30 Ur Epithelial Cells 0-2 /hpf (0-2) 03/26/24 21:30 Urine Bacteria None Seen (None Seen) 03/26/24 21:30 Impressions Chest X-Ray 03/26/24 18:38 XR chest 1V portable CLINICAL HISTORY: Chest pain, nonspecific TECHNIQUE: Single frontal radiograph of the chest was obtained. Comparison: Comparison is made to chest radiograph 12/12/2019 FINDINGS: No lines and tubes are seen. The cardiomediastinal silhouette is normal. Right lower lung airspace opacity is seen. No evidence of pleural effusion or pn eumothorax. IMPRESSION: Right lower lung airspace opacity may reflect atelectasis, although pneumonia/aspiration cannot be excluded. ACT 112: Negative or not required by law. Electronically signed by: Kareem Veronica M.D. 03/26/2024 7:43 PM Abdomen/Pelvis CT 03/26/24 19:36 Exam(s): CT ABDOMEN + PELVIS With Contrast IV Amt: OPTIRAY 320 119ML EXAM: CT Abdomen and Pelvis With Intravenous Contrast CLINICAL HISTORY: diffuse abd pain. TECHNIQUE: Axial computed tomography images of the abdomen and pelvis with intravenous contrast. CTDI is 25.74 mGy and DLP is 1345.96 mGy-cm. Automated exposure control was utilized for the study. A dose lowering technique was utilized adhering to the principles of ALARA. CONTRAST: OPTIRAY 320 119ML of IV contrast COMPARISON: CT abdomen and pelvis with contrast dated 02/25/2022 FINDINGS: Lung bases: There is a solid lobulated mass in the anterior right lower lobe extending to the diaphragm, measuring 3.8 x 3.4 x 2.3 cm. Curvilinear changes noted involving the adjacent right middle lobe. No consolidation. ABDOMEN: Liver: There is extensive and diffuse abnormal heterogeneously hypoattenuating lesions throughout the liver with near-complete replacement of the hepatic parenchyma. The liver is now markedly enlarged, measuring up to 24.6 cm in craniocaudal length. The largest abnormal lesions are noted at the dome of the diaphragm with the single largest lesion measuring 6.3 x 5.7 x 3.5 cm. Gallbladder and bile ducts: Cholecystectomy. No ductal dilation. Pancreas: Unremarkable. No mass. No ductal dilation. Spleen: Unremarkable. No splenomegaly. Adrenals: Unremarkable. No mass. Kidneys and ureters: Kidneys demonstrate normal enhancement. The presumed cortical cyst without internal enhancing features is larger involving the superior lateral left kidney, now measuring 2.2 cm from 1.5 cm previously. No hydronephrosis or obstructing nephrolithiasis. Stomach and bowel: No evidence for bowel obstruction. No asymmetric bowel mucosal abnormality. Mild stool burden. PELVIS: Appendix: A normal caliber appendix is noted along the anterior and lateral pelvis. Bladder: Unremarkable. No mass. Reproductive: Unremarkable as visualized. ABDOMEN and PELVIS: Intraperitoneal space: Trace free fluid in the pelvis is noted without loculation. No free air. Bones/joints: No acute fracture. No dislocation. Soft tissues: Unremarkable. Vasculature: Atherosclerotic calcification of the aorta. No dissection or aneurysm. Lymph nodes: No significant abdominal or retroperitoneal lymphadenopathy. IMPRESSION: 1. There is extensive and diffuse abnormal heterogeneously hypoattenuating lesions throughout the liver with near-complete replacement of the hepatic parenchyma. The liver is now markedly enlarged, measuring up to 24.6 cm in craniocaudal length. The largest abnormal lesions are noted at the dome of the diaphragm with the single largest lesion measuring 6.3 x 5.7 x 3.5 cm. Findings are consistent with metastatic disease. 2. There is a solid lobulated mass in the anterior right lower lobe extending to the diaphragm, measuring 3.8 x 3.4 x 2.3 cm. Differential consideration includes primary neoplasm of the lung versus metastatic disease. 3. Trace free fluid in the pelvis is noted without loculation. This is presumed reactive from the hepatic process. Electronically signed by: Tom Burgos MD 03/26/24 22:06 PM Chest CTA 03/26/24 19:36 Exam(s): CTA CHEST IV Amt: OPTIRAY 320 119ML EXAM: CT Angiography Chest With Intravenous Contrast CLINICAL HISTORY: Evaluate for PE. TECHNIQUE: Axial computed tomographic angiography images of the chest with intravenous contrast. CTDI is 19.71 mGy and DLP is 646.41 mGy-cm. Automated exposure control was utilized for the study. A dose lowering technique was utilized adhering to the principles of ALARA. MIP reconstructed images were created and reviewed. COMPARISON: No relevant prior studies available. FINDINGS: Pulmonary arteries: No evidence for pulmonary embolism. Aorta: No acute findings. No thoracic aortic aneurysm. Lungs: Images and abnormal solid mass lesion with heterogeneous internal vascular flow involving the anterior right lower lobe measuring 4.1 x 3.1 x 2.4 cm. Curvilinear atelectatic changes involving the inferolateral right middle lobe. The lungs are otherwise well-aerated without definite additional lesions are airspace consolidation. Minimal curvilinear changes noted at the lung bases. Pleural space: Trace subcentimeter right pleural effusion noted in the posterior costophrenic margin. No loculation. No pneumothorax. Heart: Unremarkable. No cardiomegaly. No significant pericardial effusion. Bones/joints: No acute fracture. No dislocation. Soft tissues: Unremarkable. Lymph nodes: An abnormal soft tissue mass is noted in the inferior right hilum with attenuation of the regional pulmonary artery structures and complete occlusion of the proximal right middle lobe bronchial segments. Subcarinal lymphadenopathy noted measuring 3.2 cm in diameter. IMPRESSION: 1. Images and abnormal solid mass lesion with heterogeneous internal vascular flow involving the anterior right lower lobe measuring 4.1 x 3.1 x 2.4 cm. Favor primary lung neoplasm over metastatic disease. 2. An abnormal soft tissue mass is noted in the inferior right hilum with attenuation of the regional pulmonary artery structures and complete occlusion of the proximal right middle lobe bronchial segments. In addition, there is prominent subcarinal lymphadenopathy noted, consistent with metastatic disease. 3. No evidence for pulmonary embolism. Electronically signed by: Tom Burgos MD 03/26/24 22:20 PM ECG Additional Comments: ECG. Sinus tach rate of 116. T wave abnormalities in inferior leads. Repeat EKG ECG normal sinus rhythm rate of 82. No acute ST changes seen. Code Status & VTE Plan VTE Prophylaxis Plan VTE Prophylaxis will be ordered: Yes
[2024-03-27] MEDS ORDERED: MECLIZINE HCL 25 MG TAB PO PRN (04:30)
[2024-03-27] MEDS ORDERED: NITROGLYCERIN SL 0.4 MG/TAB TAB SL PRN (04:30)
[2024-03-27] MEDS ORDERED: ALBUTEROL HFA 8 GM INHALER INH PRN (04:30)
[2024-03-27] MEDS: SODIUM CHLORIDE 0.9% 1,000 ML IV SCH (04:36)
--- NOTE | 2024-03-27 06:58 | Electrocardiogram Report ---
Test Reason : Blood Pressure : / mmHG Vent. Rate : 116 BPM Atrial Rate : 116 BPM P-R Int : 138 ms QRS Dur : 078 ms QT Int : 322 ms P-R-T Axes : 061 065 038 degrees QTc Int : 447 ms Sinus tachycardia T wave abnormality, consider inferior ischemia Abnormal ECG When compared with ECG of 14-JAN-2018 17:27, T wave inversion now evident in Inferior leads Nonspecific T wave abnormality now evident in Lateral leads Confirmed by Manolo Rodriguez ([id number]) on 03/27/2024 6:58:27 AM Referred By: REFERRED SELF Confirmed By:Raul Rodriguez
[2024-03-27 07:16] LABS: BUN Creatinine Ratio 23.5 (10-20); Calcium 8.3 mg/dl (8.6-10.3); Est GFR (African American) 136.4 ml/min; Est GFR (Non-African American) 117.7 ml/min; Magnesium 1.7 mg/dl (1.7-2.4); Potassium 3.8 mmol/L (3.5-5.1)
[2024-03-27 07:18] LABS: Basophils # (auto) 0.07 K/uL (0.00-0.20); Basophils % (auto) 0.6 %; Eosinophils # (auto) 0.25 K/uL (0.00-0.50); Eosinophils % (auto) 2.3 %; Hematocrit (blood only) 44.2 % (42.0-52.0); Hemoglobin 15.1 g/dl (14.0-18.0); Immature Granulocytes # (auto) 0.03 K/uL (0.01-0.20); Immature Granulocytes % (auto) 0.3 %; Lymphocytes # (auto) 2.21 K/uL (1.20-3.40); Lymphocytes % (auto) 20.3 %; Mean Corpuscular Hgb Conc 34.2 g/dL (32.0-36.0); Mean Corpuscular Volume 84.8 fL (80.0-100.0); Mean Platelet Volume 12.6 fL (9.4-12.4); Monocytes # (auto) 0.97 K/uL (0.11-0.59); Monocytes % (auto) 8.9 %; Neutrophils # (auto) 7.36 K/uL (1.40-6.50); Neutrophils % (auto) 67.6 %; Platelet Count 217 K/uL (130-400); RDW Coefficient of Variation 15.7 % (11.5-14.5); RDW Standard Deviation 47.9 fL (36.4-46.3); Red Blood Count 5.21 M/uL (4.70-6.10); White Blood Count 10.89 K/ul (4.8-10.8)
[2024-03-27 07:23] LABS: Troponin I High Sensitivity 9.7 pg/ml (0-20)
[2024-03-27] MEDS ORDERED: ATORVASTATIN 40 MG TAB PO SCH (09:00)
[2024-03-27] MEDS: ASPIRIN 81 MG ECTAB PO SCH (10:35)
[2024-03-27] MEDS: INDAPAMIDE 1.25 MG TAB PO SCH (10:36)
[2024-03-27] MEDS: FLUoxetine HCL 20 MG CAP PO SCH (10:36)
--- NOTE | 2024-03-27 11:00 | Cardiology Consultation ---
Date of Consultation March 27, 2024 Assessment & Plan (1) Lung mass: (2) Liver mass: Plan CT of the abdomen pelvis revealed abnormal liver findings with marked liver enlargement measuring 24.6 cm craniocaudal length per the radiology report. Patient was also found to have a 4.1 x 3.1 x 2.4 right lower lobe lung mass. Per the history I obtained from the patient, I believe his symptoms correlate with the findings of the enlarged liver with noted abdominal bloating and subtle sensation at the lower portion of his chest, his symptoms do not sound like angina. He does have a history of a bicuspid aortic valve, findings were stable at time of motion as an outpatient echocardiogram in December,. Patient stable from a cardiac perspective for workup of the liver and lung abnormalities without plans for further cardiac testing at this time. Cardiology to sign off. Call with questions or concerns. History of Present Illness Attending Physician: Debra Cummins MD History of Present Illness Mr Scott is a 58 year old male seen in cardiology consultation per the request of Dr Sandra for the evaluation of chest discomfort. Patient describes having presented to the emergency department due to several days of progressive bloating sensation in his abdomen with a pressure in sensation at the lower rib margin of his chest. Denies any recent shortness of breath or chest pain with exertion. Cardiac history notable for bicuspid aortic valve with moderate aortic valve regurgitation, most recent echocardiogram performed December, as an outpatient with results as summarized below. Allergies Allergy/AdvReac Type Severity Reaction Status Date / Time oxycodone AdvReac Intermediate CONFUSION, Verified 03/26/24 21:26 CRAZY FEELING Home Medications Medication Instructions Recorded Confirmed Type fluoxetine 40 mg capsule (Prozac) 40 mg PO QAM 04/23/19 03/26/24 History meclizine 25 mg tablet 25 mg PO TID PRN Dizziness 04/23/19 03/26/24 History acetaminophen 500 mg tablet 1,000 mg PO Q6H PRN Pain 12/12/19 03/26/24 History (Tylenol Extra Strength) aspirin 81 mg tablet,delayed 81 mg PO DAILY 02/25/22 03/26/24 History release indapamide 1.25 mg tablet 1.25 mg PO QAM 02/25/22 03/26/24 History meloxicam 15 mg tablet 15 mg PO QAM 02/25/22 03/26/24 History albuterol sulfate 90 mcg/actuation 2 puff inhalation Q4H PRN Wheezing 03/26/24 03/26/24 History aerosol inhaler atorvastatin 40 mg tablet 40 mg PO QAM 03/26/24 03/26/24 History sildenafil 25 mg tablet (Viagra) 25 mg PO DIRECTED PRN Sexual 03/26/24 03/26/24 History Activity Patient History Surgical History No pertinent past surgical history Family History Other Blood clot in vein Social History Smoking Status: Current every day smoker Tobacco Type: Cigarettes Cigarettes Per Day: 2-3; Do You Dip or Chew Tobacco: No; Hx Alcohol Use: No Hx Substance Use: No Preferred Language: Puerto Rican Communication Ability: Effective Material Stress Tester Required: No Beliefs That Will Affect Care: None Current Living Situation: Spouse Current Living Situation Comment: with Other Information That Helps Us Care for You: No Feels Safe at Home: Yes Safety Concerns: Feels Safe At This Time Assistive Devices: Glasses Review of Systems Review of Systems: All systems reviewed & are unremarkable except as noted in HPI & below Physical Exam Physical Exam: Temp Pulse Resp BP Pulse Ox O2 Del Method O2 Flow Rate 36.8 C 93 H 18 125/80 92 Nasal Cannula 2 03/27/24 07:20 03/27/24 08:00 03/27/24 07:20 03/27/24 07:20 03/27/24 07:20 03/27/24 08:00 03/27/24 08:00 General: no acute distress and stated age Eyes: conjunctiva are pink and non-injected, sclera clear Neck: normal jugular venous pulse, no hepatojugular reflux Chest: normal shape and normal respiratory effort Lungs: clear to auscultation and percussion Cardiac Exam: - regular heart sounds, no murmurs, rubs, or gallops, no jugular venous distention Abdomen: Abdominal fullness that correlates with the enlarged liver on CT scan Musculoskeletal: no gait disturbance, no weakness Extremities: no edema and no cyanosis Neuro:awake, conversant, follows commands, no focal motor deficits Psych: appropriate affect and insight. Results & Data Laboratory Results Cardiac Enzymes 03/26/24 03/27/24 Range/Units 18:43 06:38 AST 154 H (13-39) U/L Troponin I High Sens 11.5 9.7 (0-20) pg/ml CBC 03/26/24 03/27/24 Range/Units 18:43 06:38 WBC 13.13 H 10.89 H (4.8-10.8) K/ul RBC 5.87 5.21 (4.70-6.10) M/uL Hgb 17.0 15.1 (14.0-18.0) g/dl Hct 50.6 44.2 (42.0-52.0) % Plt Count 262 217 (130-400) K/uL Neut # (Auto) 8.89 H 7.36 H (1.40-6.50) K/uL Lymph # (Auto) 2.97 2.21 (1.20-3.40) K/uL [place] # (Auto) 0.91 H 0.97 H (0.11-0.59) K/uL Eos # (Auto) 0.22 0.25 (0.00-0.50) K/uL Baso # (Auto) 0.10 0.07 (0.00-0.20) K/uL Comprehensive Metabolic Panel 03/26/24 03/27/24 Range/Units 18:43 06:38 Sodium 137 138 (136-145) mmol/L Potassium 4.3 3.8 (3.5-5.1) mmol/L Chloride 103 105 (98-107) mmol/L Carbon Dioxide 25 24 (21-32) mmol/L BUN 14 12 (6-23) mg/dl Creatinine 0.76 0.51 L (0.6-1.4) mg/dl Glucose 85 78 (70-99(Fasting)) mg/dl Calcium 9.3 8.3 L (8.6-10.3) mg/dl AST 154 H (13-39) U/L ALT 131 H (7-52) U/L Alkaline Phosphatase 814 H (34-104) U/L Total Protein 7.2 (6.0-8.3) gm/dl Albumin 3.8 (3.4-5.0) gm/dl Intake and Output 05/03/27/24 03/27/24 22:59 06:59 14:59 Intake Total 1000 / 1000 Output Total 300 / 300 Balance 1000 / 700 -300 / 700 Intake: IV 1000 / 1000 Sodium Chloride 0.9% 1,000 ml @ 1000 / 1000 999 mls/hr IV .Q1H1M ONE Rx#: [id number] Output: Urine 300 / 300 Other: Other Intake Source NPO Weight 88.5 kg 88.9 kg Weight Measurement Method Chair Scale Built in [facility] Diagnostic Findings EKG performed 03/27/2024 at 4:21 AM revealed normal sinus rhythm [address] segments. Compared to the previous tracing performed 03/2624 at 1836, sinus tachycardia has resolved, and the nonspecific T wave change in the inferior leads have is resolved. Summary of transthoracic echocardiogram performed as an outpatient 12/02/2023: The left ventricular cavity size is normal. Left ventricular end-diastolic diameter 4.8 cm The LV wall thickness is borderline increased (concentric). The left ventricular wall motion is normal. The qualitative LV ejection fraction is 55-59% (normal). The aortic valve is congenitally bicuspid. The aortic valve is mildly calcified. Moderate aortic valve regurgitation is present. The aortic root is mildly enlarged. 4.0 cm In comparison to prior study of October 22, 2022, aortic insufficiency is stable. Aortic root is slightly larger
--- NOTE | 2024-03-27 12:00 | Pulmonary Consultation ---
Date of Consultation March 27, 2024 Assessment & Plan (1) Lung mass: (2) Liver mass: (3) Tobacco abuse: Plan 58-year-old male with a history of hemochromatosis, tobacco abuse since the age of 18 and occasional alcohol use who presented to the hospital with bloating and chest discomfort. Found to have right middle lobe lung mass, mediastinal adenopathy and innumerable liver lesions on CT chest and abdomen. We can certainly pursue an endobronchial ultrasound with sampling of the lymph nodes to determine malignancy, but at this time would recommend IR guided liver biopsy (order placed) given the amount of lesions in the liver and that this would likely upstage the malignancy. I am highly suspicious of potential small cell lung cancer given the central location of the primary tumor and the degree of spread. I would also recommend an MRI of the brain with and without contrast to evaluate for metastatic disease in the brain. Maintain n.p.o. after midnight. Hold anticoagulation. Discussed with Dr. Debra Cummins of the hospitalist service. Also discussed with bedside RN. Patient agreeable to the plan of care. Thank you for the consult. Will follow along with you. History of Present Illness Reason for Consultation: Extensive lung mass, mediastinal adenopathy and innumerable liver lesion Attending Physician: Debra Cummins MD History of Present Illness 58-year-old male with history of extensive tobacco abuse since the age of 18 upwards of 2 packs/day presented to the hospital due to severe abdominal bloating. He notes that over the past 5 weeks he has had significant fatigue, diarrhea and night sweats. He was treated for "pneumonia" by his PCP for appro ximately 2 weeks with minimal improvement of symptoms. He denies any significant cough. He does endorse shortness of breath which is slightly worse than usual. He does note that about 5 weeks ago he had a subjective fever. He has been afebrile while in the hospital. CT imaging this hospitalization revealed heterogeneous mass in the anterior right lower lobe measuring 4.1 x 3.1 x 2.4 cm as well as a soft tissue mass in the inferior right hilum. There is occlusion of the proximal right middle lobe segments and there is large subcarinal lymphadenopathy. CT abdomen and pelvis revealed extensive and diffuse abnormal heterogeneous hypoattenuating lesions throughout the liver with near complete replacement of the hepatic parenchyma. Liver is markedly enlarged measuring 24.6 cm. Largest lesion measures 6.3 x 5.7 cm. Allergies Allergy/AdvReac Type Severity Reaction Status Date / Time oxycodone AdvReac Intermediate CONFUSION, Verified 03/26/24 21:26 CRAZY FEELING Home Medications Medication Instructions Recorded Confirmed Type fluoxetine 40 mg capsule (Prozac) 40 mg PO QAM 04/23/19 03/26/24 History meclizine 25 mg tablet 25 mg PO TID PRN Dizziness 04/23/19 03/26/24 History acetaminophen 500 mg tablet 1,000 mg PO Q6H PRN Pain 12/12/19 03/26/24 History (Tylenol Extra Strength) aspirin 81 mg tablet,delayed 81 mg PO DAILY 02/25/22 03/26/24 History release indapamide 1.25 mg tablet 1.25 mg PO QAM 02/25/22 03/26/24 History meloxicam 15 mg tablet 15 mg PO QAM 02/25/22 03/26/24 History albuterol sulfate 90 mcg/actuation 2 puff inhalation Q4H PRN Wheezing 03/26/24 03/26/24 History aerosol inhaler atorvastatin 40 mg tablet 40 mg PO QAM 03/26/24 03/26/24 History sildenafil 25 mg tablet (Viagra) 25 mg PO DIRECTED PRN Sexual 03/26/24 03/26/24 History Activity Patient History Surgical History No pertinent past surgical history Family History Other Blood clot in vein Social History Smoking Status: Current every day smoker Tobacco Type: Cigarettes Cigarettes Per Day: 2-3; Do You Dip or Chew Tobacco: No; Hx Alcohol Use: No Hx Substance Use: No Preferred Language: Estonian Communication Ability: Effective Agricultural Real Estate Agent Required: No Beliefs That Will Affect Care: None Current Living Situation: Spouse Current Living Situation Comment: with Other Information That Helps Us Care for You: No Feels Safe at Home: Yes Safety Concerns: Feels Safe At This Time Assistive Devices: Glasses Review of Systems Review of Systems: All systems reviewed & are unremarkable except as noted in HPI & below Physical Exam Physical Exam: Constitutional: Patient appears to be of their stated age. Patient is in no apparent distress. Patient is well-developed. Eyes: Pupils are equal round and reactive to light. Conjunctivae are normal. Anicteric sclera. Ears nose, mouth and throat: Nasal cannula in place. No perioral cyanosis. Neck: Trachea is midline. Visual inspection is normal. Respiratory: Diminished lung sounds bilaterally with prolonged phase of exhalation. No overt wheeze. No increased work of breathing. Cardiovascular: Regular rate and rhythm. No murmurs. No edema. Gastrointestinal: Distended abdomen which is diffusely tender to palpation. No overt peritoneal signs. Minimal bowel sounds. Musculoskeletal: No cyanosis. Patient is able to move all extremities. Strength is 5 out of 5 in the upper and lower extremities. Skin: No rashes, warm dry and intact. Neurologic: No obvious focal neurological deficits seen. Psychiatric: Alert and oriented x3 with a euthymic affect. Results & Data Results & Data Vital Signs (Past 12 Hours) Vital Signs Temp Pulse Pulse Resp BP BP Pulse Ox 03/27/24 11:17 36.4 C L 88 18 111/71 93 03/27/24 08:00 93 H 03/27/24 08:00 03/27/24 07:20 36.8 C 91 H 18 125/80 92 03/27/24 05:40 36.5 C 82 16 137/77 91 03/27/24 04:50 03/27/24 04:30 36.5 C 82 16 137/77 92 03/27/24 04:30 88 03/27/24 04:30 03/27/24 03:47 89 22 114/83 03/27/24 02:45 91 H 03/27/24 02:30 92 H 23 115/67 91 03/27/24 00:01 81 18 133/71 91 Pulse Ox O2 Del Method O2 Del Method O2 Flow Rate O2 Flow Rate 03/27/24 11:17 Nasal Cannula 2 03/27/24 08:00 03/27/24 08:00 Nasal Cannula 2 03/27/24 07:20 Nasal Cannula 2 03/27/24 05:40 Room Air 03/27/24 04:50 Nasal Cannula 2 03/27/24 04:30 Nasal Cannula 2 03/27/24 04:30 03/27/24 04:30 92 Nasal Cannula 2 03/27/24 03:47 Room Air 03/27/24 02:45 05/27/24 02:30 Room Air 03/27/24 00:01 Room Air PG Care Time/CCT Total # of Minutes Spent Total Time Spent with Patient: Total time spent is greater than 50% in coordination of care (as documented) at patient's floor/unit and/or counseling patient: Coding Level of Care Code 37550 INT INP/OBS CARE 3/75MIN Diagnoses Lung mass R91.8 Liver mass R16.0 Tobacco abuse Z72.0
[2024-03-27] MEDS: HYDROmorphone INJ 0.5 MG/0.5 ML SYR IV PRN (12:28)
--- NOTE | 2024-03-27 13:51 | Communication Note ---
Date of Service: March 27, 2024 Evaluated patient at bedside. Discussed concern and high probability that imaging findings are consistent with metastatic disease with likely primary in lung. Patient endorses pain of RUQ into chest. Reports intermittent black stool, but no hematemesis. Endorses lack of appetite. Labs reviewed this am, mild WBC to 10, Transaminitis Exam with HSM. diminshed lung sounds on right side, CTA on left Imaging reviewed #RML lung mass #Mediastinal adenopathy #Liver lesions Discussed with patient at bedside Discussed plan with Pulm: liver lesions likely easier target for biospy -NPO midnight -IR biopsy in am -MRI brain w/wo contrast Pain mgmt oxycodone moderate, dilaudid severe Ativan for anxiety Rest of plan per H/P
[2024-03-27] MEDS: oxyCODONE HCL IR 5 MG TAB (IMMEDIATE RELEASE) PO PRN (14:19)
[2024-03-27] MEDS: ACETAMINOPHEN 325 MG TAB PO PRN (14:20)
[2024-03-27] MEDS: SACCHAROMYCES BOULARDII 250 MG CAP PO SCH (16:47)
[2024-03-27 18:41] LABS: Adenovirus F 40/41 PCR Not Detected (NotDetected); Astrovirus PCR Not Detected (NotDetected); Campylobacter PCR Not Detected (NotDetected); Cryptosporidium PCR Not Detected (NotDetected); Cyclospora cayetanensis PCR Not Detected (NotDetected); Entamoeba histolytica PCR Not Detected (NotDetected); Enteroaggregative E.coli(EAEC) Not Detected (NotDetected); Enteropathogenic E.coli (EPEC) Not Detected (NotDetected); Enterotoxigenic E.coli (ETEC) Not Detected (NotDetected); Giardia lamblia PCR Not Detected (NotDetected); Norovirus GI/GII PCR Not Detected (NotDetected); Plesiomonas shigelloides PCR Not Detected (NotDetected); Rotavirus A PCR Not Detected (NotDetected); Salmonella PCR Not Detected (NotDetected); Sapovirus PCR Not Detected (NotDetected); Shiga-like Toxin E.coli (STEC) Not Detected (NotDetected); Shigella/Enteroinvasive E.coli Not Detected (NotDetected); Vibrio cholerae PCR Not Detected (NotDetected); Vibrio species PCR Not Detected (NotDetected); Yersinia enterocolitica PCR Not Detected (NotDetected)
[2024-03-27] MEDS: LORazepam 0.5 MG in SYRINGE 0.25 ML IV PRN (21:12)
[2024-03-28 06:54] LABS: Hemoglobin 15.3 g/dl (14.0-18.0); Mean Corpuscular Hemoglobin 29.1 pg (25.0-34.0); Mean Corpuscular Volume 85.7 fL (80.0-100.0); Mean Platelet Volume 11.9 fL (9.4-12.4); Platelet Count 246 K/uL (130-400); Red Blood Count 5.25 M/uL (4.70-6.10); White Blood Count 11.23 K/ul (4.8-10.8)
[2024-03-28 07:44] LABS: INR 1.1 (0.9-1.1); Prothrombin Time 11.9 Seconds (9.0-12.0)
[2024-03-28 07:51] LABS: Albumin Globulin Ratio 1.1 (0.9-2); Albumin Level 3.5 gm/dl (3.4-5.0); BUN Creatinine Ratio 19.3 (10-20); Calcium 8.6 mg/dl (8.6-10.3); Creatinine Clr Calc Pharmacy 153.9 ml/min; Est GFR (African American) 130.3 ml/min; Est GFR (Non-African American) 112.4 ml/min; Globulin 3.3 gm/dl (2.5-4.0); Magnesium 1.9 mg/dl (1.7-2.4); Phosphorus 3.1 mg/dl (2.5-4.9); Total Protein 6.8 gm/dl (6.0-8.3)
--- NOTE | 2024-03-28 08:06 | Electrocardiogram Report ---
Test Reason : Blood Pressure : / mmHG Vent. Rate : 084 BPM Atrial Rate : 084 BPM P-R Int : 150 ms QRS Dur : 092 ms QT Int : 388 ms P-R-T Axes : 055 040 023 degrees QTc Int : 458 ms Normal sinus rhythm Normal ECG When compared with ECG of 27-MAR-2024 04:21, No significant change Confirmed by Sandro Sykes ([id number]) on 03/28/2024 8:06:30 AM Referred By: REFERRED SELF Confirmed By:Sandro Sykes
--- NOTE | 2024-03-28 09:46 | XRay Report ---
BONY ORBITS 3 VIEWS CLINICAL HISTORY: MRI clearance. FINDINGS: 3 views of the bony orbits are obtained. No prior studies are available for comparison at t he time of dictation. There is no radiodense/metallic foreign body seen in the region of the bony orb its. The bony orbits are intact as imaged. The visualized paranasal sinuses and the mastoid air cells appear clear. The imaged calvarium appears intact. IMPRESSION: There is no radiodense/metallic foreign body seen in the region of the bony orbits. ACT 112: Negative or not required by law. Electronically signed by: Juventino Bryant M.D. 03/28/2024 9:45 AM
[2024-03-28] MEDS: DOCUSATE SODIUM/SENNA 50/8.6MG TAB PO SCH (10:59)
[2024-03-28] MEDS: HYDROmorphone INJ 1 MG/ML SYRINGE IV STA (11:08)
--- NOTE | 2024-03-28 11:53 | Anesthesiology Consultation ---
Date of Service March 28, 2024 Assessment & Plan Chart Review Chart Review: Acceptable Risk for Surgery and Patient NOT seen in Pre Admission Testing Consults Requested none ASA ASA4 Proposed Anesthesia Anesthesia Type: General History Surgery Operation Date: 03/28/24 15:45 Proposed Procedures p Endobronchial Ultrasound - Vitaly Magallanes MD Height/Weight Height: 5 ft 9 in Weight: 88.9 kg Allergies Allergy/AdvReac Type Severity Reaction Status Date / Time oxycodone AdvReac Intermediate CONFUSION, Verified 03/26/24 21:26 CRAZY FEELING Medications Home Medications Medication Instructions Recorded Confirmed Last Taken fluoxetine 40 mg capsule (Prozac) 40 mg PO QAM 04/23/19 03/26/24 03/26/24 meclizine 25 mg tablet 25 mg PO TID PRN Dizziness 04/23/19 03/26/24 12/12/19 18:00 acetaminophen 500 mg tablet 1,000 mg PO Q6H PRN Pain 12/12/19 03/26/24 12/12/19 18:00 (Tylenol Extra Strength) 1000 MG aspirin 81 mg tablet,delayed 81 mg PO DAILY 02/25/22 03/26/24 03/26/24 release indapamide 1.25 mg tablet 1.25 mg PO QAM 02/25/22 03/26/24 03/25/24 meloxicam 15 mg tablet 15 mg PO QAM 02/25/22 03/26/24 03/26/24 albuterol sulfate 90 mcg/actuation 2 puff inhalation Q4H PRN Wheezing 03/26/24 03/26/24 Unknown aerosol inhaler atorvastatin 40 mg tablet 40 mg PO QAM 03/26/24 03/26/24 03/25/24 sildenafil 25 mg tablet (Viagra) 25 mg PO DIRECTED PRN Sexual 03/26/24 03/26/24 Unknown Activity Active Medications Generic Name Dose Route Start Last Admin Trade Name Freq PRN Reason Stop Dose Admin Acetaminophen 650 mg 03/27/24 04:30 03/27/24 14:20 Acetaminophen 325 Mg Tab PO 04/26/24 04:29 650 mg Q4H PRN Administration Pain or Fever Fluoxetine HCl 40 mg 03/27/24 09:00 03/28/24 08:55 Fluoxetine Hcl 20 Mg Cap PO 04/26/24 08:59 40 mg QAM MONI Administration Lorazepam 0.5 mg/ Syringe 0.5 mls @ 2 mls/min 03/27/24 13:45 03/27/24 21:12 IV 04/26/24 13:44 2 mls/min Q8H PRN Administration Anxiety/Agitation Indapamide 1.25 mg 03/27/24 09:00 03/28/24 08:55 Indapamide 1.25 Mg Tab PO 04/26/24 08:59 1.25 mg QAM MONI Administration Oxycodone HCl 5 mg 03/27/24 10:42 03/28/24 06:16 Oxycodone Hcl Ir 5 Mg Tab (Immediate Release) PO 04/10/24 10:41 5 mg Q4H PRN Administration Moderate Pain (Scale 4, 5, 6) Saccharomyces Boulardii 250 mg 03/27/24 16:30 03/28/24 08:55 Saccharomyces Boulardii 250 Mg Cap PO 04/26/24 16:29 250 mg DAILY MONI Administration Senna/Docusate Sodium 1 tab 03/28/24 09:00 03/28/24 10:59 Docusate Sodium/Senna 50/8.6mg Tab PO 04/27/24 08:59 Not Given QAM MONI Past Medical History RML lung mass Hepatic lesions elevated LFT's Polycythemia Exercise / Class Metabolic Activity III < 4 Walking/Shop/Light housework Past Family History Family History Other Blood clot in vein Past Surgical History Surgical History No pertinent past surgical history Past Anesthesia History No Hx of Anesthesia Complications and No Family Hx of Anesthesia Complications History of PONV No Hx of PONV and No Hx of Motion Sickness Social History Smoking Status: Current every day smoker Smoking cigarettes per day: 2-3 Do You Dip or Chew Tobacco: No Hx Alcohol Use: No Hx Substance Use: No substance use type: does not use Physical Exam Vital Signs Last Vital Signs Temp 36.7 C 03/28/24 11:00 Pulse 89 03/28/24 11:00 Resp 18 03/28/24 11:00 BP 127/79 03/28/24 11:00 Pulse Ox 92 03/28/24 11:00 O2 Del Method Nasal Cannula 03/28/24 11:00 O2 Flow Rate 2 03/28/24 11:00 Testing Laboratory Results 03/28/24 06:26 03/28/24 06: PT 11.9 Seconds (9.0-12.0) 03/28/24 06: INR 1.1 (0.9-1.1) 03/28/24 06: Urine Color Yellow 03/26/24 21:30 Urine Appearance Clear (Clear) 03/26/24 21: Urine pH 7.5 (4.5-7.5) 03/26/24 21: Ur Specific [place] 1.010 (1.000-1.030) 03/26/24 21: Urine Protein 1+ (Negative) H 03/26/24 21: Urine Glucose (UA) Negative (Negative) 03/26/24 21: Urine Ketones Negative (Negative) 03/26/24 21: Urine Nitrite Negative (Negative) 03/26/24 21: Ur Leukocyte Esterase Negative (Negative) 03/26/24 21:30 Urine RBC 0-2 /hpf (0-2) 03/26/24 21:30 Urine WBC 0-5 /hpf (0-5) 03/26/24 21:30 Ur Epithelial Cells 0-2 /hpf (0-2) 03/26/24 21:30 Electrocardiogram Date: 03/28/24 Findings: + NSR @ (@ 84) Chest X-Ray Date: 03/26/24 Findings: + infiltrate (RLL airspace opacity)
--- NOTE | 2024-03-28 12:27 | History & Physical Bridge Note ---
Date of Service March 28, 2024 History & Physical Bridge Note I have examined the patient, reviewed the History & Physical and in the interval since the performance of the History & Physical I have noted the following changes of clinical significance: no changes noted
--- NOTE | 2024-03-28 12:28 | Pulmonology Progress Note ---
Date of Service March 28, 2024 Assessment & Plan (1) Lung mass: (2) Liver mass: (3) Tobacco abuse: Plan 58-year-old male with a history of hemochromatosis, tobacco abuse since the age of 18 and occasional alcohol use who presented to the hospital with bloating and chest discomfort. Found to have right middle lobe lung mass, mediastinal adenopathy and innumerable liver lesions on CT chest and abdomen. Unfortunately unable to proceed with liver biopsy as the patient received aspirin yesterday. Safe to proceed with bronchoscopic biopsy and will pursue EBUS with tissue sampling. Patient consents and is agreeable to the procedure. Discussed with the OR staff and, bedside nurse and patient. Thank you for the consult. Will follow along with you. Admission and Anticipated Discharge Date Admission Date: March 27, 2024 Subjective Patient seen and examined. Symptoms remained stable from yesterday. Continues to have bloating and decreased appetite. He has remained n.p.o. over midnight. Unable to pursue liver biopsy as the patient received aspirin yesterday. Will pursue bronchoscopic biopsy. Review of Systems Review of Systems: All systems reviewed & are unremarkable except as noted in HPI & below Physical Exam Physical Exam: Constitutional: Patient appears to be of their stated age. Patient is in no apparent distress. Patient is well-developed. Eyes: Pupils are equal round and reactive to light. Conjunctivae are normal. Anicteric sclera. Ears nose, mouth and throat: Nasal cannula in place. No perioral cyanosis. Neck: Trachea is midline. Visual inspection is normal. Respiratory: Diminished lung sounds bilaterally with prolonged phase of exhalation. No overt wheeze. No increased work of breathing. Cardiovascular: Regular rate and rhythm. No murmurs. No edema. Gastrointestinal: Distended abdomen which is diffusely tender to palpation. No overt peritoneal signs. Minimal bowel sounds. Musculoskeletal: No cyanosis. Patient is able to move all extremities. Strength is 5 out of 5 in the upper and lower extremities. Skin: No rashes, warm dry and intact. Neurologic: No obvious focal neurological deficits seen. Psychiatric: Alert and oriented x3 with a euthymic affect. Results & Data Results & Data Vital Signs (Past 12 Hours) Vital Signs Temp Pulse Pulse Resp BP BP Pulse Ox 03/28/24 11:00 36.7 C 89 18 127/79 92 03/28/24 11:00 86 03/28/24 07:15 36.7 C 89 18 124/76 91 03/28/24 04:30 03/28/24 03:57 37.1 C 83 17 123/73 93 Pulse Ox O2 Del Method O2 Del Method O2 Flow Rate O2 Flow Rate 03/28/24 11:00 Nasal Cannula 2 03/28/24 11:00 03/28/24 07:15 Nasal Cannula 2 03/28/24 04:30 93 Nasal Cannula 2 03/28/24 03:57 Nasal Cannula 2 PG Care Time/CCT Total # of Minutes Spent Total Time Spent with Patient: Total time spent is greater than 50% in coordination of care (as documented) at patient's floor/unit and/or counseling patient: Coding Level of Care Code 66890 SUB INP/OBS CARE 3/50MIN Diagnoses Lung mass R91.8 Liver mass R16.0 Tobacco abuse Z72.0
[2024-03-28] MEDS ORDERED: fentaNYL citrate PF 100 MCG/2 ML VIAL ONE (12:33)
[2024-03-28] MEDS ORDERED: MIDAZOLAM HCL 1 MG/ML 2ML VIAL ONE (12:33)
--- NOTE | 2024-03-28 12:56 | Electrocardiogram Report ---
Test Reason : Blood Pressure : / mmHG Vent. Rate : 082 BPM Atrial Rate : 082 BPM P-R Int : 162 ms QRS Dur : 092 ms QT Int : 382 ms P-R-T Axes : 067 066 051 degrees QTc Int : 446 ms Normal sinus rhythm Normal ECG When compared with ECG of 26-MAR-2024 18:36, T wave inversion no longer evident in Inferior leads Confirmed by Sandro Sykes ([id number]) on 03/28/2024 12:55:39 PM Referred By: REFERRED SELF Confirmed By:Sandro Sykes
[2024-03-28] MEDS ORDERED: PROMETHAZINE HCL 6.25 MG in SODIUM CHLORIDE 0.9% 50 ML IV PRN (12:57)
[2024-03-28] MEDS ORDERED: HYDROmorphone INJ 1 MG/ML SYRINGE IV PRN (12:57)
[2024-03-28] MEDS ORDERED: ATROPINE SULFATE 0.1 MG/ML 10ML SYR IV PRN (12:57)
[2024-03-28] MEDS ORDERED: ONDANSETRON INJ 2 MG/ML 2 ML VIAL IV PRN (12:57)
[2024-03-28] MEDS ORDERED: ePHEDrine sulfate 50 MG/ML AMP IV PRN (12:57)
[2024-03-28] MEDS ORDERED: fentaNYL citrate PF 100 MCG/2 ML VIAL IV PRN (12:57)
[2024-03-28] MEDS ORDERED: LIDOCAINE 2% 2 ML VIAL/AMP(20MG/ML) INFIL ONE (13:09)
[2024-03-28] MEDS ORDERED: SUGAMMADEX SODIUM 200 MG/2 ML VIAL IV ONE (13:09)
[2024-03-28] MEDS ORDERED: ONDANSETRON INJ 2 MG/ML 2 ML VIAL ONE (13:09)
[2024-03-28] MEDS ORDERED: PROPOFOL IV EMULSION 10 MG/ML 20 ML VIAL IV ONE (13:09)
[2024-03-28] MEDS ORDERED: ROCURONIUM BROMIDE 10 MG/ML 5 ML VIAL IV ONE (13:10)
--- NOTE | 2024-03-28 13:47 | Procedure Note ---
Procedure Note Date of Service March 28, 2024 Note PREOPERATIVE DIAGNOSIS: Massive mediastinal lymphadenopathy lung mass POSTOPERATIVE DIAGNOSIS: Preliminary diagnosis of small cell lung cancer which appears to be extensive stage PROCEDURE PERFORMED: Flexible fiberoptic bronchoscopy with bronchial washings from the right lower lobe and EBUS FNA of station 7 lymphadenopathy. COMPLICATIONS: None. INDICATION: Evaluate for malignancy and airway obstruction PROCEDURE: Informed consent was obtained from the patient prior to the procedure. All risks and benefits were discussed and the patient agreed to proceed with the procedure. Timeout performed immediately prior to the procedure. Patient was intubated by the anesthesia staff the other protocol. All vital signs and monitoring are performed by anesthesia staff. Sedation was also performed by anesthesia staff. Patient was extubated per their protocol. Bronchoscope was inserted via the endotracheal tube adapter while the patient was ventilated. The diamond and trachea were observed. Diamond appeared sharp. The right-sided airways were inspected. There was a large mucous plug in the right bronchus intermedius. 40 mL of saline was instilled and then this mucous plug was suctioned free. The scope was then advanced. The right middle lobe was 100% occluded due to extrinsic compression of tumor. Right lower lobe airways appeared friable. The right upper lobe airway had thick londono mucus emanating which was suctioned free. The secretions were sent for culture and cytology. The scope was then brought back to the level of the diamond. The scope was then advanced to the left bronchial tree. Mucosal pitting was noted. Thin secretions were aspirated free. The scope was then completely withdrawn. The endobronchial ultrasound scope was then inserted. The endotracheal tube adapter through the endotracheal tube. The images were flipped to ultrasound imaging. I observed a very large station 7 lymph node measuring over 3 cm. This was biopsied with a 21-gauge needle x 4. Onsite pathology was positive for a preliminary diagnosis of small cell lung cancer. The scope was then completely withdrawn. The diagnostic bronchoscope was then reinserted and the airway was inspected. No significant bleeding was seen. Old clotted blood was suctioned free. The scope was then completely withdrawn and patient was extubated per anesthesia protocol. In summary: The patient has a 100% occlusion of the right middle lobe due to extrinsic compression of the tumor. There is extensive mucoid impaction of the bilateral tracheobronchial tree and these secretions were aspirated free. The subcarinal lymph node was biopsied 4 times with a 21-gauge FNA needle. Rapid onsite pathology was positive x 2 for preliminary cytology of small cell lung cancer. Radiation oncology, medical oncology and palliative care will be consulted. Patient will need full staging workup with MRI brain as well. Coding CPT Codes Pulmonary/Thoracic - Pulmonary and Thoracic: 64079 Bronchoscopy, w/EBUS add on ([id number]) Pulmonary/Thoracic - Pulmonary and Thoracic: 35306 Dx bronchoscopy/wash ([id number]) [facility] [place]Charges) Pulmonary/Thoracic Procedure 1: Pulmonary and Thoracic: 42674 Bronchoscopy, w/EBUS add on Procedure 2: Pulmonary and Thoracic: 92338 Dx bronchoscopy/wash
[2024-03-28] MEDS: ALBUT/IPRATROP 3MG/0.5MG NEB 3 ML VIAL INH PRN (13:59)
--- NOTE | 2024-03-28 14:17 | Communication Note ---
Date of Service: March 28, 2024 Palliative conuslt order received/appreciated and chart reviewed Pt will be en route to OR for bronch, anticipate post procedural sedation. discussed with referring team, advised to see pt tomorrow. Thank you for allowing us to participate in the ongoing care of this patient. Please don't hesitate to call or page with any additional concerns. Dr. Waleska Oliva DNP Director, Palliative Care
--- NOTE | 2024-03-28 14:36 | Anesthesiology Progress Note ---
Date of Service March 28, 2024 Anesthesia Post Procedure Vital Signs Vital Signs: Temp Pulse Pulse Resp BP BP Pulse Ox 03/28/24 14:25 103 H 16 126/76 89 L 03/28/24 14:15 105 H 17 122/73 89 L 03/28/24 14:05 100 H 21 128/74 87 L 03/28/24 13:55 110 H 18 108/73 87 L 03/28/24 13:49 36.5 C 94 H 14 113/70 89 L 03/28/24 13:15 03/28/24 12:30 36.8 C 96 H 18 118/84 88 L 03/28/24 11:00 36.7 C 89 18 127/79 92 03/28/24 11:00 86 03/28/24 08:00 03/28/24 07:15 36.7 C 89 18 124/76 91 03/28/24 04:30 03/28/24 03:57 37.1 C 83 17 123/73 93 03/27/24 23:51 37.0 C 85 19 118/72 93 03/27/24 21:58 79 03/27/24 19:35 36.4 C L 81 18 113/61 92 03/27/24 19:30 03/27/24 16:00 89 03/27/24 14:57 36.4 C L 79 18 117/75 92 Pulse Ox O2 Del Method O2 Del Method O2 Flow Rate O2 Flow Rate 03/28/24 14:25 Nasal Cannula 3 03/28/24 14:15 Nasal Cannula 3 03/28/24 14:05 Nasal Cannula 3 03/28/24 13:55 Nasal Cannula 3 03/28/24 13:49 Nasal Cannula 3 03/28/24 13:15 Mechanical Vent 03/28/24 12:30 Nasal Cannula 2 03/28/24 11:00 Nasal Cannula 2 03/28/24 11:00 03/28/24 08:00 Nasal Cannula 2 03/28/24 07:15 Nasal Cannula 2 03/28/24 04:30 93 Nasal Cannula 2 03/28/24 03:57 Nasal Cannula 2 03/27/24 23:51 Nasal Cannula 2 03/27/24 21:58 03/27/24 19:35 Nasal Cannula 2 03/27/24 19:30 Nasal Cannula 2 03/27/24 16:00 03/27/24 14:57 Nasal Cannula 2 Pain Intensity Abdomen: Pain Intensity: 8 Transfer of Care Handoff Completed per policy Notes Mental Status: alert / awake / arousable Patient Amnestic to Procedure: Yes Nausea / Vomiting: adequately controlled Pain: adequately controlled Airway Patency, RR, SpO2: stable & adequate BP & HR: stable & adequate Hydration State: stable & adequate Anesthetic Complications: no major complications apparent
--- NOTE | 2024-03-28 15:00 | XRay Report ---
SINGLE VIEW CHEST CLINICAL HISTORY: Follow-up status post bronchoscopy. FINDINGS: An AP, portable, upright chest radiograph is compared to chest x-ray and chest CT dated 03/02. The cardiomediastinal silhouette is unremarkable. Emphysema and chronic interstitial thickeni ng is similar to previous. A right basilar mass lesion was better assessed on the recent chest CT. Th ere is a small right pleural effusion. Atelectasis is noted at the left lung base. No pneumothorax is seen. The bony thorax is grossly intact. IMPRESSION: 1. No pneumothorax is identified post procedure. 2. Emphysema. 3. A right basilar mass lesion was better assessed on the recent chest CT. 4. Small right pleural effusion. ACT 112: Negative or not required by law. Electronically signed by: Juventino Bryant M.D. 03/28/2024 2:58 PM
--- NOTE | 2024-03-28 16:05 | Oncology Consultation ---
Date of Consultation March 28, 2024 Assessment & Plan (1) Small cell lung cancer: had a very extensive discussion with the patient, his about the diagnosis, prognosis and the possible outcomes. Explained that his cancer is treatable however is incurable. I have recommended palliative systemic chemotherapy which can be initiated once the patient is discharged. Discussed the median survival of extensive stage small cell lung cancer with and without treatment. Discussed possible chemotherapy and immunotherapy options. Patient would follow-up in the oncology clinic once he is discharged. He will need outpatient PET CT scan as well as an MRI of the brain for screening purposes. Plan Thank you for this interesting oncological consult a total of 60 minutes were spent in counseling, coordination of care review of prior records. History of Present Illness Reason for Consultation: extensive stage small cell lung cancer Attending Physician: Debra Cummins MD History of Present Illness the patient is a very pleasant 58-year-old male who follows my colleague up in [facility] for hemochromatosis, recently was identified to have 100% occlusion of the right middle lobe of the lung due to extrinsic compression of the tumor. He was evaluated by pulmonology colleague, underwent fiberoptic bronchoscopy, bronchial washings from the right lower lobe and EBUS which revealed diagnosis consistent with small cell lung cancer. He had a CT of the chest abdomen pelvis which also shows possible infiltration of the liver. The patient is a heavy smoker has been smoking since he was 18, smoked 1 pack/day. Reports shortness of breath or chest pain. Has lost weight recently. Allergies Allergy/AdvReac Type Severity Reaction Status Date / Time oxycodone AdvReac Intermediate CONFUSION, Verified 03/26/24 21:26 CRAZY FEELING Home Medications Medication Instructions Recorded Confirmed Type fluoxetine 40 mg capsule (Prozac) 40 mg PO QAM 04/23/19 03/26/24 History meclizine 25 mg tablet 25 mg PO TID PRN Dizziness 04/23/19 03/26/24 History acetaminophen 500 mg tablet 1,000 mg PO Q6H PRN Pain 12/12/19 03/26/24 History (Tylenol Extra Strength) aspirin 81 mg tablet,delayed 81 mg PO DAILY 02/25/22 03/26/24 History release indapamide 1.25 mg tablet 1.25 mg PO QAM 02/25/22 03/26/24 History meloxicam 15 mg tablet 15 mg PO QAM 02/25/22 03/26/24 History albuterol sulfate 90 mcg/actuation 2 puff inhalation Q4H PRN Wheezing 03/26/24 03/26/24 History aerosol inhaler atorvastatin 40 mg tablet 40 mg PO QAM 03/26/24 03/26/24 History sildenafil 25 mg tablet (Viagra) 25 mg PO DIRECTED PRN Sexual 03/26/24 03/26/24 History Activity Patient History Surgical History No pertinent past surgical history Family History Other Blood clot in vein Social History Smoking Status: Current every day smoker Tobacco Type: Cigarettes Cigarettes Per Day: 2-3; Do You Dip or Chew Tobacco: No; Hx Alcohol Use: No Hx Substance Use: No Preferred Language: Bangladeshi Communication Ability: Effective Social Service Liaison Required: No Beliefs That Will Affect Care: None Current Living Situation: Spouse Current Living Situation Comment: with Other Information That Helps Us Care for You: No Feels Safe at Home: Yes Safety Concerns: Feels Safe At This Time Assistive Devices: Cane Review of Systems Review of Systems: Shortness of breath, fatigue, weight loss Constitutional: as per Subjective / HPI Eyes: as per Subjective / HPI Ear, Nose, Mouth, Throat: as per Subjective / HPI Respiratory: as per Subjective / HPI Cardiovascular: as per Subjective / HPI Gastrointestinal: as per Subjective / HPI Genitourinary: + as per Subjective / HPI Musculoskeletal: as per Subjective / HPI Integumentary: as per Subjective / HPI Neurologic: as per Subjective / HPI Psychiatric: as per Subjective / HPI Endocrine: as per Subjective / HPI Physical Exam Constitutional: WD/WN, vitals as above Eyes: PERRL, conjunctivae normal, anicteric sclerae ENMT: external ear and nose normal, oropharynx normal Neck: trachea midline, no thyromegaly Respiratory: normal respiratory effort, lungs clear to auscultation Cardiovascular: RRR, no murmur, no edema Gastrointestinal (Abdomen): normal bowel sounds, soft, nontender, no hepatosplenomegaly Musculoskeletal: no cyanosis or clubbing, extremities motor strength 5/5 Results & Data Vital Signs (Past 12 Hours) Vital Signs Temp Pulse Pulse Resp BP BP Pulse Ox 03/28/24 16:04 36.6 C 98 H 18 114/71 90 03/28/24 15:45 37.0 C 100 H 19 113/73 90 03/28/24 15:20 98 H 17 114/73 91 03/28/24 15:05 100 H 22 117/75 90 03/28/24 14:50 101 H 18 121/78 91 03/28/24 14:35 36.4 C L 110 H 23 117/72 91 03/28/24 14:25 103 H 16 126/76 89 L 03/28/24 14:15 105 H 17 122/73 89 L 03/28/24 14:05 100 H 21 128/74 87 L 03/28/24 13:55 110 H 18 108/73 87 L 03/28/24 13:49 36.5 C 94 H 14 113/70 89 L 03/28/24 13:15 03/28/24 12:30 36.8 C 96 H 18 118/84 88 L 03/28/24 11:00 36.7 C 89 18 127/79 92 03/28/24 11:00 86 03/28/24 08:00 03/28/24 07:15 36.7 C 89 18 124/76 91 03/28/24 04:30 Pulse Ox O2 Del Method O2 Del Method O2 Flow Rate O2 Flow Rate 03/28/24 16:04 Nasal Cannula 3 03/28/24 15:45 Nasal Cannula 3 03/28/24 15:20 Nasal Cannula 3 03/28/24 15:05 Nasal Cannula 3 03/28/24 14:50 Nasal Cannula 3 03/28/24 14:35 Nasal Cannula 3 03/28/24 14:25 Nasal Cannula 3 03/28/24 14:15 Nasal Cannula 3 03/28/24 14:05 Nasal Cannula 3 03/28/24 13:55 Nasal Cannula 3 03/28/24 13:49 Nasal Cannula 3 03/28/24 13:15 Mechanical Vent 03/28/24 12:30 Nasal Cannula 2 03/28/24 11:00 Nasal Cannula 2 03/28/24 11:00 03/28/24 08:00 Nasal Cannula 2 03/28/24 07:15 Nasal Cannula 2 03/28/24 04:30 93 Nasal Cannula 2
[2024-03-28] MEDS: GADOBUTROL 65ML VIAL IV ONE (17:48)
--- NOTE | 2024-03-28 18:09 | Hospitalist Progress Note ---
Date of Service March 28, 2024 Assessment & Plan (1) Lung mass: Plan: Mr Scott is a 58-year-old male with past med history significant for hypertension, lumbar degenerative disc disease, secondary polycythemia, ongoing tobacco use, anxiety, chronic dizziness presents with on and off chest pains and also feeling of bloating in abdomen. Patient states symptoms of chest pain most times it comes when he climbs steps and resolves after resting. Imaging revealed signs concerning for metastatic disease Bronchoscopy performed on 03/28 concerning for small cell lung cancer "100% occlusion of the right middle lobe due to extrinsic compression of the tumor...subcarinal lymph node was biopsied 4 times ...positive x 2 for preliminary cytology of small cell lung cancer" Radiation oncology, medical oncology and palliative care will be consulted. Patient will need full staging workup with MRI brain as well. #RML lung mass c/f small cell lung cancer #Mediastinal adenopathy Discussed with patient at bedside Discussed plan with Pulm: liver lesions likely easier target for biospy however unable to do liver 2/2 asa intake Bronchoscopy: c/f small cell Pulm -MRI: -Heme/onc and rad onc on consult Pain mgmt oxycodone moderate, dilaudid severe and breakthrough #Liver lesions #Transaminitis likely 2/2 metastatic disease unable to do liver biopsy 2/2 asa intake however subcarinal node biopsied Trend CMP #Noncardiac chest pains EKG nonspecific findings. Initial troponin is okay. ECHO stable,likely secondary to ongoing metastatic process, monitor on tele # hyperlipidemia hold statin for transaminitis for now #hypertension on indapamide we will monitor #depression #anxiety on Prozac Ativan for anxiety #tobacco abuse needs counseling DVT prophylaxis SCDs for now in anticipation of procedure disposition telemetry full code Admission and Anticipated Discharge Date Admission Date: March 27, 2024 Subjective NAEO Reports pain mostly with movement Denies nausea or vomiting Spent 45 min bedside with family discussing history of patient and findings on bronchoscopy Physical Exam Constitutional: WD/WN, vitals as above Respiratory: diminished breath sounds, no stridor/rhonchi noted Cardiovascular: RRR, no murmur, no edema Gastrointestinal (Abdomen): normal bowel sounds, soft, nontender, no hepatosplenomegaly Results & Data Results & Data Vital Signs (Past 12 Hours) Vital Signs Temp Pulse Pulse Resp BP BP Pulse Ox 03/28/24 16:35 98 H 03/28/24 16:19 36.9 C 97 H 18 117/75 91 03/28/24 16:04 36.6 C 98 H 18 114/71 90 03/28/24 15:50 98 H 03/28/24 15:45 37.0 C 100 H 19 113/73 90 03/28/24 15:20 98 H 17 114/73 91 03/28/24 15:05 100 H 22 117/75 90 03/28/24 14:50 101 H 18 121/78 91 03/28/24 14:35 36.4 C L 110 H 23 117/72 91 03/28/24 14:25 103 H 16 126/76 89 L 03/28/24 14:15 105 H 17 122/73 89 L 03/28/24 14:05 100 H 21 128/74 87 L 03/28/24 13:55 110 H 18 108/73 87 L 03/28/24 13:49 36.5 C 94 H 14 113/70 89 L 03/28/24 13:15 03/28/24 12:30 36.8 C 96 H 18 118/84 88 L 03/28/24 11:00 36.7 C 89 18 127/79 92 03/28/24 11:00 86 03/28/24 08:00 03/28/24 07:15 36.7 C 89 18 124/76 91 O2 Del Method O2 Flow Rate 03/28/24 16:35 03/28/24 16:19 Nasal Cannula 3 03/28/24 16:04 Nasal Cannula 3 03/28/24 15:50 03/28/24 15:45 Nasal Cannula 3 03/28/24 15:20 Nasal Cannula 3 03/28/24 15:05 Nasal Cannula 3 03/28/24 14:50 Nasal Cannula 3 03/28/24 14:35 Nasal Cannula 3 03/28/24 14:25 Nasal Cannula 3 03/28/24 14:15 Nasal Cannula 3 03/28/24 14:05 Nasal Cannula 3 03/28/24 13:55 Nasal Cannula 3 03/28/24 13:49 Nasal Cannula 3 03/28/24 13:15 Mechanical Vent 03/28/24 12:30 Nasal Cannula 2 03/28/24 11:00 Nasal Cannula 2 03/28/24 11:00 03/28/24 08:00 Nasal Cannula 2 03/28/24 07:15 Nasal Cannula 2 Laboratory Results Short CBC 03/28/24 Range/Units 06:26 WBC 11.23 H (4.8-10.8) K/ul Hgb 15.3 (14.0-18.0) g/dl Hct 45.0 (42.0-52.0) % Plt Count 246 (130-400) K/uL BMP 03/28/24 06:26 Sodium 138 Potassium 4.0 Chloride 105 Carbon Dioxide 25 BUN 11 Creatinine 0.57 L Glucose 90 Calcium 8.6 Liver Function 03/28/24 Range/Units 06:26 Total Bilirubin 1.0 (0.2-1.0) mg/dl AST 150 H (13-39) U/L ALT 104 H (7-52) U/L Alkaline Phosphatase 848 H (34-104) U/L Albumin 3.5 (3.4-5.0) gm/dl Medications Administered Home Medications Medication Instructions Recorded Confirmed Last Taken fluoxetine 40 mg capsule (Prozac) 40 mg PO QAM 04/23/19 03/26/24 03/26/24 meclizine 25 mg tablet 25 mg PO TID PRN Dizziness 04/23/19 03/26/24 12/12/19 18:00 acetaminophen 500 mg tablet 1,000 mg PO Q6H PRN Pain 12/12/19 03/26/24 12/12/19 18:00 (Tylenol Extra Strength) 1000 MG aspirin 81 mg tablet,delayed 81 mg PO DAILY 02/25/22 03/26/24 03/26/24 release indapamide 1.25 mg tablet 1.25 mg PO QAM 02/25/22 03/26/24 03/25/24 meloxicam 15 mg tablet 15 mg PO QAM 02/25/22 03/26/24 03/26/24 albuterol sulfate 90 mcg/actuation 2 puff inhalation Q4H PRN Wheezing 03/26/24 03/26/24 Unknown aerosol inhaler atorvastatin 40 mg tablet 40 mg PO QAM 03/26/24 03/26/24 03/25/24 sildenafil 25 mg tablet (Viagra) 25 mg PO DIRECTED PRN Sexual 03/26/24 03/26/24 Unknown Activity Active Medications Generic Name Dose Route Start Last Admin Trade Name Freq PRN Reason Stop Dose Admin Acetaminophen 650 mg 03/27/24 04:30 03/27/24 14:20 Acetaminophen 325 Mg Tab PO 04/26/24 04:29 650 mg Q4H PRN Administration Pain or Fever Albuterol 3 ml 03/28/24 12:59 03/28/24 13:59 Albut/Ipratrop 3mg/0.5mg Neb 3 Ml Vial INH 03/28/24 20:59 3 ml ONCE PRN Administration PACU Use Only-SOB/Wheezing Fluoxetine HCl 40 mg 03/27/24 09:00 03/28/24 08:55 Fluoxetine Hcl 20 Mg Cap PO 04/26/24 08:59 40 mg QAM MONI Administration Lorazepam 0.5 mg/ Syringe 0.5 mls @ 2 mls/min 03/27/24 13:45 03/27/24 21:12 IV 04/26/24 13:44 2 mls/min Q8H PRN Administration Anxiety/Agitation Indapamide 1.25 mg 03/27/24 09:00 03/28/24 08:55 Indapamide 1.25 Mg Tab PO 04/26/24 08:59 1.25 mg QAM MONI Administration Oxycodone HCl 5 mg 03/27/24 10:42 03/28/24 06:16 Oxycodone Hcl Ir 5 Mg Tab (Immediate Release) PO 04/10/24 10:41 5 mg Q4H PRN Administration Moderate Pain (Scale 4, 5, 6) Saccharomyces Boulardii 250 mg 03/27/24 16:30 03/28/24 08:55 Saccharomyces Boulardii 250 Mg Cap PO 04/26/24 16:29 250 mg DAILY MONI Administration Senna/Docusate Sodium 1 tab 03/28/24 09:00 03/28/24 10:59 Docusate Sodium/Senna 50/8.6mg Tab PO 04/27/24 08:59 Not Given QAM MONI
--- NOTE | 2024-03-28 19:24 | Magnetic Resonance Report ---
MR brain wo/w con CLINICAL HISTORY: r/o metastatic disease to brain TECHNIQUE: Multiplanar and multisequence MR images of the brain were obtained prior to and following administration of gadolinium contrast. Comparison: None available at the time of this dictation. FINDINGS: No abnormal restricted diffusion is identified. Foci of T2 and FLAIR hyperintensity are noted in the paraventricular areas consistent with chronic small vessel ischemic disease. The ventricular system i s normal in appearance. No mass or abnormal enhancement is seen. There is no mass effect or midline s hift. There is no evidence of acute intraparenchymal hemorrhage. No extra axial fluid collections are seen. The corpus callosum, pituitary gland, and cerebellar tonsils appear grossly unremarkable. Flow voids of the major intracranial arterial vessels are identified. The imaged portions of the para nasal sinuses, mastoid air cells, and orbits are unremarkable. IMPRESSION: No acute abnormality and in particular no evidence of metastatic disease. ACT 112: Negative or not required by law. Electronically signed by: Kareem Veronica M.D. 03/28/2024 7:22 PM
[2024-03-28] MEDS: HYDROmorphone INJ 0.5 MG/0.5 ML SYR IV PRN (21:28)
[2024-03-29] MEDS: HYDROmorphone INJ 0.5 MG/0.5 ML SYR IV PRN (03:00)
[2024-03-29 07:13] LABS: Hematocrit (blood only) 45.5 % (42.0-52.0); Hemoglobin 15.2 g/dl (14.0-18.0); Mean Corpuscular Hemoglobin 28.8 pg (25.0-34.0); Mean Corpuscular Hgb Conc 33.4 g/dL (32.0-36.0); Mean Corpuscular Volume 86.2 fL (80.0-100.0); Mean Platelet Volume 11.5 fL (9.4-12.4); Platelet Count 234 K/uL (130-400); RDW Coefficient of Variation 15.9 % (11.5-14.5); RDW Standard Deviation 49.2 fL (36.4-46.3); Red Blood Count 5.28 M/uL (4.70-6.10); White Blood Count 12.41 K/ul (4.8-10.8)
[2024-03-29 07:46] LABS: Albumin Globulin Ratio 1.1 (0.9-2); Albumin Level 3.6 gm/dl (3.4-5.0); BUN Creatinine Ratio 16.5 (10-20); Bilirubin,Total 0.9 mg/dl (0.2-1.0); Calcium 8.4 mg/dl (8.6-10.3); Creatinine Clr Calc Pharmacy 111.3 ml/min; Est GFR (African American) 113.9 ml/min; Est GFR (Non-African American) 98.3 ml/min; Globulin 3.4 gm/dl (2.5-4.0); Phosphorus 3.4 mg/dl (2.5-4.9); Potassium 3.7 mmol/L (3.5-5.1)
--- NOTE | 2024-03-29 07:58 | Electrocardiogram Report ---
Test Reason : Blood Pressure : / mmHG Vent. Rate : 090 BPM Atrial Rate : 090 BPM P-R Int : 148 ms QRS Dur : 094 ms QT Int : 376 ms P-R-T Axes : 038 023 026 degrees QTc Int : 459 ms Normal sinus rhythm Normal ECG When compared with ECG of 28-MAR-2024 06:44, No significant change was found Confirmed by Sandro Sykes ([id number]) on 03/29/2024 7:57:33 AM Referred By: REFERRED SELF Confirmed By:Sandro Sykes
--- NOTE | 2024-03-29 10:55 | Pulmonology Progress Note ---
Date of Service March 29, 2024 Assessment & Plan (1) Lung mass: (2) Liver mass: (3) Tobacco abuse: (4) Bronchial obstruction: Plan 58-year-old male with a history of polycythemia vera, tobacco abuse since the age of 18 and occasional alcohol use who presented to the hospital with bloating and chest discomfort. Found to have right middle lobe lung mass, mediastinal adenopathy and innumerable liver lesions on CT chest and abdomen. EBUS of subcarinal lymph node performed yesterday. Preliminary diagnosis consistent with small cell lung cancer. Appreciate oncology input. MRI brain without evidence of metastases. Rad Onc consult placed for occlusion of the right middle lobe due to extrinsic compression noted on bronchoscopy and consideration of palliative radiation. Patient with hypoxemia related to extensive disease burden from small cell lung cancer. Palliative care consult as well. Please follow-up final pathology from bronchoscopic biopsies and cultures from washings. Patient aware diagnosis. No further input at this time from a pulmonary perspective. Please call with questions. Thank you for the consult. Admission and Anticipated Discharge Date Admission Date: March 27, 2024 Subjective Patient seen and examined. Had scant hemoptysis overnight. No further hemoptysis this morning. Denies any significant chest pain. Mild abdominal discomfort related to coughing. Review of Systems Review of Systems: All systems reviewed & are unremarkable except as noted in HPI & below Physical Exam Physical Exam: Constitutional: Patient appears to be of their stated age. Patient is in no apparent distress. Patient is well-developed. Eyes: Pupils are equal round and reactive to light. Conjunctivae are normal. Anicteric sclera. Ears nose, mouth and throat: Nasal cannula in place. No perioral cyanosis. Neck: Trachea is midline. Visual inspection is normal. Respiratory: Diminished lung sounds bilaterally with prolonged phase of exhalation. No overt wheeze. No increased work of breathing. Cardiovascular: Regular rate and rhythm. No murmurs. No edema. Gastrointestinal: Distended abdomen which is diffusely tender to palpation. No overt peritoneal signs. Minimal bowel sounds. Musculoskeletal: No cyanosis. Patient is able to move all extremities. Strength is 5 out of 5 in the upper and lower extremities. Skin: No rashes, warm dry and intact. Neurologic: No obvious focal neurological deficits seen. Psychiatric: Alert and oriented x3 with a euthymic affect. Results & Data Results & Data Vital Signs (Past 12 Hours) Vital Signs Temp Pulse Pulse Resp BP Pulse Ox O2 Del Method 03/29/24 07:23 37.1 C 89 18 113/69 94 Nasal Cannula 03/29/24 02:53 37.0 C 82 18 120/74 93 Nasal Cannula 03/29/24 01:22 Nasal Cannula 03/28/24 23:22 36.6 C 92 H 19 119/75 95 Nasal Cannula 03/28/24 23:00 89 O2 Flow Rate 03/29/24 07:23 3 03/29/24 02:53 3 03/29/24 01:22 3 03/28/24 23:22 3 03/28/24 23:00 PG Care Time/CCT Total # of Minutes Spent Total Time Spent with Patient: Total time spent is greater than 50% in coordination of care (as documented) at patient's floor/unit and/or counseling patient: Coding Level of Care Code 50661 SUB INP/OBS CARE 2/35MIN Diagnoses Lung mass R91.8 Liver mass R16.0 Tobacco abuse Z72.0 Bronchial obstruction J98.09
[2024-03-29] MEDS ORDERED: LORazepam 0.5 MG TAB PO PRN (10:56)
[2024-03-29] MEDS: HYDROmorphone HCL 2 MG TAB PO PRN (11:53)
--- NOTE | 2024-03-29 12:30 | Gastrointestinal Consultation ---
Date of Consultation March 29, 2024 Assessment & Plan (1) Elevated liver enzymes: Minimal LFT elevation likely related to probable metastatic cancer. Can obtain an acute hepatitis panel, but would not pursue further liver labs (ie--autoimmune work-up) until results of liver biopsy have returned). Supervising Physician Co-Signing Physician Notes Agree with DOMINIC Bowles as above Interviewed and examined patient and agree with above Abd: Soft, tender RUQ, ND Continue current therapy and supportive care No plans for invasive GI workup at this time. History of Present Illness Reason for Consultation: Elevated LFTs Attending Physician: Duane Brery MD History of Present Illness Patient is a 58 yo male who is admitted with concerns for small cell lung cancer. GI has been consulted for elevated LFTs. AST 156, ALT 109, T bili 0.9. Previous baseline numbers are from 2021. Patient had CT imaging that suggests: IMPRESSION: 1. There is extensive and diffuse abnormal heterogeneously hypoattenuating lesions throughout the liver with near-complete replacement of the hepatic parenchyma. The liver is now markedly enlarged, measuring up to 24.6 cm in craniocaudal length. The largest abnormal lesions are noted at the dome of the diaphragm with the single largest lesion measuring 6.3 x 5.7 x 3.5 cm. Findings are consistent with metastatic disease. 2. There is a solid lobulated mass in the anterior right lower lobe extending to the diaphragm, measuring 3.8 x 3.4 x 2.3 cm. Differential consideration includes primary neoplasm of the lung versus metastatic disease. 3. Trace free fluid in the pelvis is noted without loculation. This is presumed reactive from the hepatic process. Plans to move forward with a liver biopsy are in process as it is easier to access the liver lesions. Patient denies personal history of liver disease but notes a father with alcoholic cirrhosis & son with fatty liver disease. Allergies Allergy/AdvReac Type Severity Reaction Status Date / Time oxycodone AdvReac Intermediate CONFUSION, Verified 03/26/24 21:26 CRAZY FEELING Home Medications Medication Instructions Recorded Confirmed Type fluoxetine 40 mg capsule (Prozac) 40 mg PO QAM 04/23/19 03/26/24 History meclizine 25 mg tablet 25 mg PO TID PRN Dizziness 04/23/19 03/26/24 History acetaminophen 500 mg tablet 1,000 mg PO Q6H PRN Pain 12/12/19 03/26/24 History (Tylenol Extra Strength) aspirin 81 mg tablet,delayed 81 mg PO DAILY 02/25/22 03/26/24 History release indapamide 1.25 mg tablet 1.25 mg PO QAM 02/25/22 03/26/24 History meloxicam 15 mg tablet 15 mg PO QAM 02/25/22 03/26/24 History albuterol sulfate 90 mcg/actuation 2 puff inhalation Q4H PRN Wheezing 03/26/24 03/26/24 History aerosol inhaler atorvastatin 40 mg tablet 40 mg PO QAM 03/26/24 03/26/24 History sildenafil 25 mg tablet (Viagra) 25 mg PO DIRECTED PRN Sexual 03/26/24 03/26/24 History Activity Patient History Surgical History No pertinent past surgical history Family History Other Blood clot in vein Social History Smoking Status: Current every day smoker Tobacco Type: Cigarettes Cigarettes Per Day: 2-3; Do You Dip or Chew Tobacco: No; Hx Alcohol Use: No Hx Substance Use: No Preferred Language: Croatian Communication Ability: Effective Power System Dispatcher Required: No Beliefs That Will Affect Care: Zoroastrian Current Living Situation: Spouse Current Living Situation Comment: with Other Information That Helps Us Care for You: No Feels Safe at Home: Yes Safety Concerns: Feels Safe At This Time Assistive Devices: Cane Review of Systems Constitutional: no fever and no chills Gastrointestinal: no abdominal pain Psychiatric: no problem reported Hematologic / Lymphatic: no easy bleeding Physical Exam Constitutional: no acute distress Respiratory: normal respiratory effort Cardiovascular: Rate/Rhythm: regular rate Gastrointestinal (Abdomen): normal bowel sounds, soft, nontender, no hepatosplenomegaly Psychiatric: Orientation: alert and oriented x 3 Results & Data Vital Signs (Past 12 Hours) Vital Signs Temp Pulse Resp BP Pulse Ox O2 Del Method O2 Flow Rate 03/29/24 10:56 36.6 C 94 H 18 122/75 92 Nasal Cannula 3 03/29/24 07:23 37.1 C 89 18 113/69 94 Nasal Cannula 3 03/29/24 02:53 37.0 C 82 18 120/74 93 Nasal Cannula 3 03/29/24 01:22 Nasal Cannula 3 PG Care Time/CCT Total # of Minutes Spent Total Time Spent with Patient: Total time spent is greater than 50% in coordination of care (as documented) at patient's floor/unit and/or counseling patient: Coding Level of Care Code 11696 IN/OBS CONSULT LVL 4,60M Diagnoses Elevated liver enzymes R74.8
--- NOTE | 2024-03-29 12:57 | Radiation OncologyConsultation ---
Date of Consultation March 29, 2024 Assessment & Plan (1) Small cell lung cancer: Plan ATTENDING ADDENDUM Assessment: Mr. Scott is a 58-year-old gentleman who presents with a new diagnosis of extensive stage small cell lung carcinoma. The patient was admitted to the hospital for workup and evaluation. Currently, the patient is relatively stable. He does have abdominal discomfort involving his right upper quadrant due to metastatic disease in the liver. The patient has been evaluated by Dr. Sidhu from medical oncology who has recommended systemic chemotherapy in the outpatient setting. We have been asked to evaluate the patient regarding the role of radiation therapy. Treatment Options: 1. Systemic chemotherapy. 2. Palliative radiation therapy. 3. Supportive care. Recommendations: 1. Systemic chemotherapy as initial therapy. 2. Palliative radiation therapy could be an alternative to chemotherapy if the patient is unable to get chemotherapy given his significant abdominal pain from metastatic disease to the liver. 3. Consolidative chest radiation therapy and prophylactic cranial radiation therapy should be considered in the future following the initial course of chemotherapy. Palliative radiation therapy can be considered in the future if the patient does not tolerate chemotherapy well. Plan: 1. Completion of staging workup including MRI brain. 2. Follow-up with medical oncology in the outpatient setting. 3. Palliative care consultation in the inpatient or outpatient setting would be reasonable. 4. Return to radiation oncology department as needed. 5. Patient and family encouraged to call us with any further questions or concerns. History of Present Illness Reason for Consultation: Newly diagnosed lung cancer with bronchial obstruction. Requesting Physician: Duane Irvin MD Attending Physician: Duane Berry MD History of Present Illness 03/26/2024. Patient presented to the emergency room with abdominal pain. He stated that he had been having discomfort over the past few days. Described pain that was in the right upper quadrant and radiated to the epigastric area. He has a feeling of abdominal bloating. He did have nausea without vomiting. He did have a cough. Stated he had pneumonia about 5 weeks ago. There is general discomfort throughout the chest. 03/26/2024. Chest x-ray. Right pleural lung airspace opacity may reflect atelectasis, although pneumonia/aspiration cannot be excluded. 03/26/2024. Chest CTA. 1. Images and abnormal solid mass lesion with heterogeneous internal vascular flow involving the anterior right lower lobe measuring 4.1 x 3.1 x 2.4 cm. Favor primary lung neoplasm over metastatic disease. 2. An abnormal soft tissue mass is noted in the inferior right hilum with attenuation of the regional pulmonary artery structures and complete occlusion of the proximal right middle lobe bronchial segments. In addition, there is prominent subcarinal lymphadenopathy noted, consistent with metastatic disease. 3. No evidence for pulmonary embolism. 03/26/2024. CT of the abdomen pelvis. 1. There is extensive and diffuse abnormal heterogeneously hypoattenuating lesions throughout the liver with near-complete replacement of the hepatic parenchyma. The liver is now markedly enlarged, measuring up to 24.6 cm in craniocaudal length. The largest abnormal lesions are noted at the dome of the diaphragm with the single largest lesion measuring 6.3 x 5.7 x 3.5 cm. Findings are consistent with metastatic disease. 2. There is a solid lobulated mass in the anterior right lower lobe extending to the diaphragm, measuring 3.8 x 3.4 x 2.3 cm. Differential consideration includes primary neoplasm of the lung versus metastatic disease. 3. Trace free fluid in the pelvis is noted without loculation. This is presumed reactive from the hepatic process. 03/27/2024. Cardiology consultation (Dr. Taylor). Patient stable from a cardiac perspective. Continue workup of the lung and liver abnormalities. 03/27/2024. Pulmonary consultation (Dr. Magallanes). Recommendation for bronchoscopy with biopsies. Recommendation for IR guided biopsy of the liver. Findings suspicious for small cell carcinoma. Recommendation for brain MRI. 03/28/2024. Flexible fiberoptic bronchoscopy with bronchial washings in the right lower lobe and EBUS FNA of station 7 lymphadenopathy. Preliminary pathology has been reported as small cell carcinoma. 03/27/2024. Medical oncology consultation (Dr. Sidhu). Recommendation for palliative systemic chemotherapy to be given as an outpatient. Recommendation for PET/CT as outpatient. Recommendation for brain MRI. 03/28/2024. Gastroenterology consultation (Dr. Walker). Plan to move forward with liver biopsy. 03/28/2024. MRI of the brain. No acute abnormality and in particular no evidence of metastatic disease. 03/29/2024. Radiation oncology consultation. Patient continues to have moderate discomfort of the right upper quadrant. He continues to have abdominal distention. He is currently having adequate pain control. Information has been reviewed. He is having no issues with nausea or vomiting. He does have constipation from the pain medications. He is currently having no issues with respiratory distress. Some shortness of breath when active. Continued mild generalized chest discomfort. Allergies Allergy/AdvReac Type Severity Reaction Status Date / Time oxycodone AdvReac Intermediate CONFUSION, Verified 03/26/24 21:26 CRAZY FEELING Home Medications Medication Instructions Recorded Confirmed Type fluoxetine 40 mg capsule (Prozac) 40 mg PO QAM 04/23/19 03/26/24 History meclizine 25 mg tablet 25 mg PO TID PRN Dizziness 04/23/19 03/26/24 History acetaminophen 500 mg tablet 1,000 mg PO Q6H PRN Pain 12/12/19 03/26/24 History (Tylenol Extra Strength) aspirin 81 mg tablet,delayed 81 mg PO DAILY 02/25/22 03/26/24 History release indapamide 1.25 mg tablet 1.25 mg PO QAM 02/25/22 03/26/24 History meloxicam 15 mg tablet 15 mg PO QAM 02/25/22 03/26/24 History albuterol sulfate 90 mcg/actuation 2 puff inhalation Q4H PRN Wheezing 03/26/24 03/26/24 History aerosol inhaler atorvastatin 40 mg tablet 40 mg PO QAM 03/26/24 03/26/24 History sildenafil 25 mg tablet (Viagra) 25 mg PO DIRECTED PRN Sexual 03/26/24 03/26/24 History Activity Patient History Surgical History No pertinent past surgical history Family History Other Blood clot in vein Social History Smoking Status: Current every day smoker Tobacco Type: Cigarettes Cigarettes Per Day: 2-3; Do You Dip or Chew Tobacco: No; Hx Alcohol Use: No Hx Substance Use: No Preferred Language: Tajik Communication Ability: Effective Principal Systems Architect Required: No Beliefs That Will Affect Care: Sikhism Current Living Situation: Spouse Current Living Situation Comment: with Other Information That Helps Us Care for You: No Feels Safe at Home: Yes Safety Concerns: Feels Safe At This Time Assistive Devices: Cane Review of Systems Review of Systems: 13 point review of systems completed and is negative other than what is mentioned in the history of present illness. Physical Exam Constitutional: WD/WN, vitals as above Eyes: PERRL, conjunctivae normal, anicteric sclerae ENMT: Ears: no hearing impairment Neck: trachea midline, no thyromegaly Respiratory: no respiratory distress Auscultation: + diminished lung sounds; no wheezes Cardiovascular: RRR, no murmur, no edema Gastrointestinal (Abdomen): Inspection/Auscultation: + abdomen distended Percussion/Palpation: + abdomen tender (Right upper quadrant and epigastric area.) and + hepatomegaly Skin: no rashes, warm and dry Psychiatric: A+Ox3, euthymic affect Lymphatic: no cervical or axillary lymphadenopathy Time Spent Midlevel I spent [15] minutes in preparation for this follow up evaluation including reviewing all the clinical records, reviewing laboratory studies, pathology reports and imaging results. I spent [20] minutes with direct face to face interaction with the patient and/or family including performing a physical exam and answering all questions. I spent [10] minutes documenting this patient's visit. Attending I spent 10 minutes in preparation for this consultation including reviewing all the clinical records, reviewing laboratory studies, pathology reports and imaging results. I spent 10 minutes with direct face to face interaction with the patient and/or family including performing a physical exam and answering all questions. I spent 10 minutes documenting this patient's visit. PG Care Time/CCT Total # of Minutes Spent Total Time Spent with Patient: Total time spent is greater than 50% in coordination of care (as documented) at patient's floor/unit and/or counseling patient: [place] [address] IN/OBS CONSULT LVL 5,80M Patient Type New History Expanded Problem Focused Exam Expanded Problem Focused Medical Decision Making Moderate Complexity Diagnoses Small cell lung cancer C34.90
--- NOTE | 2024-03-29 18:30 | Hospitalist Progress Note ---
Date of Service March 29, 2024 Assessment & Plan (1) Lung mass: Plan: 58-year-old male with PMH of hypertension, lumbar degenerative disc disease, secondary polycythemia, ongoing tobacco use, anxiety, chronic dizziness presents with on and off chest pains and also feeling of bloating in abdomen. Patient stated symptoms of chest pain most times it comes when he climbs steps and resolves after resting. Admitting imaging revealed signs concerning for metastatic disease #RML lung mass c/f small cell lung cancer #Mediastinal adenopathy # Hypoxia: Patient with hypoxemia related to extensive disease burden from small cell lung cancer. Admitting imagings: CTAP concerning for metastatic liver disease. Solid lobulated mass in the anterior right lower lobe concerning for primary neoplasm of the lung versus metastatic disease. Trace pleural fluid in the pelvis noted without loculation. CTA chest: Concerning for primary lung neoplasm over metastatic disease. Prominent subcarinal lymphadenopathy noted consistent with metastatic disease. No PE. Brain MRI: No evidence of metastatic disease. No acute finding. Bronchoscopy performed on 03/28 concerning for small cell lung cancer---"100% occlusion of the right middle lobe due to extrinsic compression of the tumor...subcarinal lymph node was biopsied 4 times ...positive x 2 for preliminary cytology of small cell lung cancer" Rad Onc consult placed for occlusion of the right middle lobe due to extrinsic compression noted on bronchoscopy and consideration of palliative radiation. Radiation oncology, medical oncology and palliative care following. Pulmonology evaluated, appreciate recommendation. Pt is aware. f/u biopsy results. Pain mgmt oxycodone moderate, dilaudid severe and breakthrough #Liver lesions #Transaminitis likely 2/2 metastatic disease unable to do liver biopsy 2/2 asa intake however subcarinal node biopsied Trend CMP, GI evaled, appreciate recs. #Noncardiac chest pains EKG nonspecific findings. Initial troponin is okay. ECHO stable,likely secondary to ongoing metastatic process, monitor on tele # hyperlipidemia: hold statin for transaminitis for now #hypertension: on indapamide. we will monitor #depression/ anxiety: on Prozac. Ativan for anxiety #tobacco abuse: encouraged cessation. DVT prophylaxis: Hep sc. disposition telemetry full code Admission and Anticipated Discharge Date Admission Date: March 27, 2024 Subjective Patient was seen and examined at bedside. Patient reports improving hemoptysis, denies chest pain, reports no nausea or vomiting, reports eating okay, denies abdominal pain, reports bowel movement 3 days ago. Continue with bowel regimen. Reports right upper belly pain about the same since presentation. Physical Exam Physical Exam: General- Not in distress , 3L O2 via NC. Head- atraumatic Eyes- PERRL., ENT- oropharynx clear Neck- supple, no JVD. Lungs- clear to auscultation no wheezing or crackles Heart- regular rate and rhythm; no murmur, no gallop. Abdomen- normal bowel sounds, soft, ruq tender, no distension. Extremities- no pretibial edema, no erythema seen. Neuro- alert, oriented PERRL, EOMI; no facial palsy; no dysarthria; moves extremities. Skin- warm & dry Results & Data Results & Data Vital Signs (Past 12 Hours) Vital Signs Temp Pulse Pulse Resp BP Pulse Ox O2 Del Method 03/29/24 17:43 96 H 03/29/24 14:55 37.1 C 103 H 18 125/78 93 Nasal Cannula 03/29/24 10:56 36.6 C 94 H 18 122/75 92 Nasal Cannula 03/29/24 07:23 37.1 C 89 18 113/69 94 Nasal Cannula O2 Flow Rate 03/29/24 17:43 03/29/24 14:55 3 03/29/24 10:56 3 03/29/24 07:23 3
[2024-03-29] MEDS: HEPARIN SOD 5,000 UNIT/0.5 ML VIAL SQ SCH (20:00)
[2024-03-29] MEDS: HYDROmorphone INJ 0.5 MG/0.5 ML SYR IV STA (21:55)
--- NOTE | 2024-03-29 22:07 | Communication Note ---
Date of Service: March 29, 2024 Patient with right-sided pleuritic chest pain and SOB. No unusual cough symptoms. Patient initially declined heparin subcu DVT prophylaxis Rx as per RN. AP Chest pain with SOB Rule out PE History of malignancy CT chest PE study Patient counseled regarding need for compliance with pharmacologic DVT prophylaxis given malignancy history
[2024-03-29] MEDS: OPTIRAY 320 125ml IV ONE (22:29)
[2024-03-29] MEDS ORDERED: HYDROmorphone INJ 1 MG/ML SYRINGE IV PRN (22:52)
[2024-03-29 23:25] LABS: Partial Thromboplastin Time 28 Seconds (21-31)
[2024-03-30] MEDS: HYDROmorphone INJ 1 MG/ML SYRINGE IV STA (00:37)
[2024-03-30] MEDS: HYDROmorphone HCL 4 MG TAB PO PRN (03:54)
[2024-03-30] MEDS: HYDROmorphone INJ 1 MG/ML SYRINGE IV PRN (06:32)
[2024-03-30] MEDS: POLYETHYLENE (MIRALAX) 17 GM PACK PO SCH (08:13)
[2024-03-30] MEDS: DOCUSATE SODIUM/SENNA 50/8.6MG TAB PO SCH (08:13)
--- NOTE | 2024-03-30 08:39 | CT Scan Report ---
CHEST CTA for PULMONARY ARTERIES CT DOSE: 650.38 mGy.cm HISTORY: pleuritic cp, shortness of breath TECHNIQUE: Multiaxial CT images of the chest were performed following the intravenous administration of contrast to evaluate the pulmonary arteries. 3D/Maximal intensity projection images were also obta ined. Sagittal and coronal reformations were also reviewed. A dose lowering technique was utilized a dhering to the principles of ALARA. COMPARISON STUDY: Chest CTA 03/26/2024. FINDINGS: No evidence for an aortic dissection. The heart is normal in size. No pleural or pericardia l effusions. Multiple hypodense lesions again noted seen throughout the liver consistent with metasta tic disease. There is overall suboptimal opacification of the pulmonary arteries. However, no filling defects within the pulmonary arteries to suggest a pulmonary embolus. There is mild mass effect chuckie g the proximal right middle and right lower lobe pulmonary arteries due to the right lower lobe lesio n and right hilar lymphadenopathy. The right lower lobe lesion is partially obscured by the adjacent consolidation/collapse of the right middle lobe which has progressed in the interval. This right lowe r lobe lesion measures approximately 4.8 cm and is best seen on image 70. There is complete occlusion of the right middle lobe bronchus, unchanged. Bibasilar linear densities have progressed. This favor s subsegmental atelectasis. A superimposed pneumonia would be difficult to exclude. Mild emphysema. N o suspicious lytic or blastic osseous lesions. Subcarinal lymphadenopathy is again noted. No left hil ar lymphadenopathy. IMPRESSION: 1. No evidence for a pulmonary embolus. 2. Redemonstration of the 4.8 cm right lower lobe mass with associated right hilar and subcarinal lym phadenopathy consistent with metastatic disease. 3. Multiple hepatic metastases are partially visualized on this study. 4. There is complete collapse of the right middle lobe due to occlusion of the right middle lobe bron chus from the right hilar lymphadenopathy. This has progressed in the interval. 4. Additional bibasilar linear densities are nonspecific but favor subsegmental atelectasis. A superi mposed pneumonia would be difficult to exclude. ACT 112: Negative or not required by law. Electronically signed by: Geoff Enriquez M.D. 03/30/2024 8:36 AM
[2024-03-30 10:10] LABS: Hemoglobin 14.7 g/dl (14.0-18.0); Mean Corpuscular Hemoglobin 28.8 pg (25.0-34.0); Mean Corpuscular Hgb Conc 33.4 g/dL (32.0-36.0); Mean Corpuscular Volume 86.1 fL (80.0-100.0); Mean Platelet Volume 11.9 fL (9.4-12.4); Platelet Count 294 K/uL (130-400); RDW Coefficient of Variation 15.9 % (11.5-14.5); RDW Standard Deviation 49.8 fL (36.4-46.3); Red Blood Count 5.11 M/uL (4.70-6.10); White Blood Count 13.84 K/ul (4.8-10.8)
[2024-03-30 10:16] LABS: Albumin Level 3.6 gm/dl (3.4-5.0); Bilirubin Direct 0.6 mg/dl (0-0.2); Bilirubin,Total 1.1 mg/dl (0.2-1.0); Calcium 8.6 mg/dl (8.6-10.3); Creatinine Clr Calc Pharmacy 144.3 ml/min; Est GFR (African American) 126.7 ml/min; Est GFR (Non-African American) 109.3 ml/min; Magnesium 2.1 mg/dl (1.7-2.4); Phosphorus 2.9 mg/dl (2.5-4.9); Total Protein 7.2 gm/dl (6.0-8.3)
[2024-03-30 10:22] LABS: Troponin I High Sensitivity 10.7 pg/ml (0-20)
[2024-03-30] MEDS: ASPIRIN 81 MG CHEW PO SCH (10:22)
[2024-03-30 10:57] LABS: HBSAG NON-REACTIVE (NON-REACTIVE); Hepatitis A Antibody IgM NON-REACTIVE (NON-REACTIVE); Hepatitis B Core Antibody IgM REACTIVE (NON-REACTIVE)
--- NOTE | 2024-03-30 11:43 | Palliative Care Consultation ---
Date of Consultation March 30, 2024 Assessment & Plan (1) Dyspnea and respiratory abnormalities: new SCLC Awaiting chemo (2) Weakness generalized: (3) Constipation: Senna S one tab PO daily, inc to BID if needed Constipation type: drug induced constipation Qualified Code(s): K59.03 - Drug induced constipation (4) Anorexia: cancer related supplemental nutrition reviewed (5) Cancer cachexia: (6) Advanced care planning/counseling discussion: Face to face ACP with pt at bedside for 60 min together with Public Address Servicer Corrine. Grupo is very direct about his illness and tells me he and have had several tough discussions. He reaffirms DNR/DNI - had many family experiences with EOL and does not want to prolong suffering, would want to be home if time was running out. code status changed to DNR/DNI in accordance with his expressed wishes. Knows that prognosis is within a 2 year window with the chemo offered if he is able to tolerate it/it does not cause complications or intolerances. He is very worried about , wants to make sure arrangements are in place to assure her financial well being. Notes that their son and grandson live at patient's home and son is from the child's mother. There is a 14yo grand daughter who resides with the mother. Pt has a daughter who lives about 20 min away and is supportive but has her job and family to care for and limited availability to help him. He worries the son will not "step up" when he dies and will not be supported and that son may take advantage and eventually will be unable to support herself/stay in the home. Patient is estranged from his 2 sisters, states they were aggressive with him settling their mother's estate and have not spoken to him since/pursued litigat ion against him. He has a brother who does not engage with anyone, prefers to be on his own. Grupo knows time is not on his side. he wants to maximize time with his he would like to try chemo to extend his life so long as the cost of that / the toxicity of it does not create more suffering. he is very firm that if chemo hurts more than helps, he will stop and move to a more comfort QOL focus. (7) Palliative care by specialist: Plan as above Thank you for allowing us to participate in the ongoing care of this patient. Please don't hesitate to call or page with any additional concerns. Dr. Waleska Oliva DNP Director, Palliative Care History of Present Illness Reason for Consultation: [facility] Attending Physician: Duane Berry MD History of Present Illness new lung cancer declining for about 6-9 mos weight loss, fatigue, dyspnea recent work up confirmed lung cancer, small cell was seen by oncology, hoping to get chemo started declining appetite, rare nausea, rare constipation appetite poor signif pain across anterior chest and abdomen, knows he has extensive liver mets Allergies Allergy/AdvReac Type Severity Reaction Status Date / Time oxycodone AdvReac Intermediate CONFUSION, Verified 03/26/24 21:26 CRAZY FEELING Home Medications Medication Instructions Recorded Confirmed Type fluoxetine 40 mg capsule (Prozac) 40 mg PO QAM 04/23/19 03/26/24 History meclizine 25 mg tablet 25 mg PO TID PRN Dizziness 04/23/19 03/26/24 History aspirin 81 mg tablet,delayed 81 mg PO DAILY 02/25/22 03/26/24 History release indapamide 1.25 mg tablet 1.25 mg PO QAM 02/25/22 03/26/24 History albuterol sulfate 90 mcg/actuation 2 puff inhalation Q4H PRN Wheezing 03/26/24 03/26/24 History aerosol inhaler atorvastatin 40 mg tablet 40 mg PO QAM 03/26/24 03/26/24 History sildenafil 25 mg tablet (Viagra) 25 mg PO DIRECTED PRN Sexual 03/26/24 03/26/24 History Activity acetaminophen 500 mg tablet 500 mg PO Q6H PRN Pain #0 tabs 04/02/24 03/26/24 Rx (Tylenol Extra Strength) hydromorphone 4 mg tablet 4 mg PO Q4H PRN pain (scale score 04/02/24 Rx 7-10) 5 days #30 tabs oxycodone 5 mg tablet 5 mg PO Q8H PRN pain (scale score 04/02/24 Rx 4-6) 5 days #15 tabs Patient History Surgical History No pertinent past surgical history Family History Other Blood clot in vein Social History Smoking Status: Current every day smoker Tobacco Type: Cigarettes Cigarettes Per Day: 2-3; Do You Dip or Chew Tobacco: No; Hx Alcohol Use: No Hx Substance Use: No Preferred Language: Icelandic Communication Ability: Effective Food Analyst Required: No Beliefs That Will Affect Care: Evangelical Current Living Situation: Spouse Current Living Situation Comment: with Feels Safe at Home: Yes Assistive Devices: Cane Review of Systems Review of Systems: All systems reviewed & are unremarkable except as noted in Subjective Physical Exam Constitutional: + acute distress, + ill appearing, + thi n, + frail appearing and cooperative Eyes: PERRL, conjunctivae normal, anicteric sclerae ENMT: dentition fair, MM sl dry Neck: normal visual inspection and trachea midline Thyroid: normal thyroid Respiratory: + respiratory distress, + labored breath ing and + pursed lip breathing; + not able to speak in complete sentence Auscultation: + diminished lung sounds and + rhonchi Cardiovascular: Rate/Rhythm: + tachycardic (S1S2) Gastrointestinal (Abdomen): soft, NTP, BS+ Musculoskeletal: DALTON, mild weakness Skin: +pallor, diaphoretic Neurologic: AAOx3 Results & Data Vital Signs (Past 12 Hours) Vital Signs Temp Pulse Pulse Resp BP BP Pulse Ox 03/30/24 07:35 89 03/30/24 07:35 03/30/24 07:30 36.8 C 96 H 19 129/77 94 03/30/24 03:02 36.7 C 100 H 18 124/76 91 O2 Del Method O2 Flow Rate 03/30/24 07:35 03/30/24 07:35 Nasal Cannula 3 03/30/24 07:30 Nasal Cannula 3.0 03/30/24 03:02 Nasal Cannula 3 Laboratory Results 03/30/24 03/29/24 03/29/24 Range/Units 09:35 22:17 12:36 WBC 13.84 H (4.8-10.8) K/ul RBC 5.11 (4.70-6.10) M/uL Hgb 14.7 (14.0-18.0) g/dl Hct 44.0 (42.0-52.0) % MCV 86.1 (80.0-100.0) fL MCH 28.8 (25.0-34.0) pg MCHC 33.4 (32.0-36.0) g/dL RDW Std Deviation 49.8 H (36.4-46.3) fL RDW Coeff of Margy 15.9 H (11.5-14.5) % Plt Count 294 (130-400) K/uL MPV 11.9 (9.4-12.4) fL Immature Gran % (Auto) % Neut % (Auto) % Lymph % (Auto) % [place] % (Auto) % Eos % (Auto) % Baso % (Auto) % Neut # (Auto) (1.40-6.50) K/uL Lymph # (Auto) (1.20-3.40) K/uL [place] # (Auto) (0.11-0.59) K/uL Eos # (Auto) (0.00-0.50) K/uL Baso # (Auto) (0.00-0.20) K/uL Immature Gran # (Auto) (0.01-0.20) K/uL PT (9.0-12.0) Seconds INR (0.9-1.1) APTT 28 (21-31) Seconds PTT Ratio 1.0 D-Dimer (0-500) ug/L FEU Sodium 130 L (136-145) mmol/L Potassium 4.0 (3.5-5.1) mmol/L Chloride 94 L (98-107) mmol/L Carbon Dioxide 30 (21-32) mmol/L Anion Gap 6 (3-11) BUN 11 (6-23) mg/dl Creatinine 0.61 (0.6-1.4) mg/dl Est Cr Clr Drug Dosing 144.3 ml/min Est GFR ( Amer) 126.7 ml/min Est GFR (Non-Af Amer) 109.3 ml/min BUN/Creatinine Ratio 18.0 (10-20) Glucose 130 H (70-99(Fasting)) mg/dl Calcium 8.6 (8.6-10.3) mg/dl Phosphorus 2.9 (2.5-4.9) mg/dl Magnesium 2.1 (1.7-2.4) mg/dl Total Bilirubin 1.1 H (0.2-1.0) mg/dl Direct Bilirubin 0.6 H (0-0.2) mg/dl AST 120 H (13-39) U/L ALT 100 H (7-52) U/L Alkaline Phosphatase 845 H (34-104) U/L Troponin I High Sens 10.7 11.5 (0-20) pg/ml Total Protein 7.2 (6.0-8.3) gm/dl Albumin 3.6 (3.4-5.0) gm/dl Globulin (2.5-4.0) gm/dl Albumin/Globulin Ratio (0.9-2) Lipase (11-82) U/L Procalcitonin (0-0.5) ng/ml Urine Color Urine Appearance (Clear) Urine pH (4.5-7.5) Ur Specific [place] (1.000-1.030) Urine Protein (Negative) Urine Glucose (UA) (Negative) Urine Ketones (Negative) Urine Blood (Negative) Urine Nitrite (Negative) Urine Bilirubin (Negative) Urine Urobilinogen (Negative) Ur Leukocyte Esterase (Negative) Urine RBC (0-2) /hpf Urine WBC (0-5) /hpf Ur Epithelial Cells (0-2) /hpf Urine Bacteria (None Seen) Stl C. cayetanensis PCR (NotDetected) Stool Rotavirus A PCR (NotDetected) Stl Adenov F 40/41 PCR (NotDetected) Stool Astrovirus (PCR) (NotDetected) Stool Campylobacter PCR (NotDetected) Stool Cryptosporidium PCR (NotDetected) Stl E.coli Shiga Tox PCR (NotDetected) Stl Enterotoxigenic E PCR (NotDetected) Stool EPEC (PCR) (NotDetected) Stool EAEC (PCR) (NotDetected) Stl E. histolytica PCR (NotDetected) Stool Giardia Lamblia PCR (NotDetected) Stool Salmonella PCR (NotDetected) Stool Sapovirus (PCR) (NotDetected) Stl P. shigelloides PCR (NotDetected) Stl Shigella/EIEC PCR (NotDetected) St Y.enterocolitica PCR (NotDetected) Stool Vibrio (PCR) (NotDetected) Stl Vibrio cholerae PCR (NotDetected) Stl Norovirus GI/GII PCR (NotDetected) Hepatitis A IgM Ab NON-REACTIVE (NON-REACTIVE) Hep Bs Antigen NON-REACTIVE (NON-REACTIVE) Hep Bs Ag Confirmation TNP Hep B Core IgM Ab REACTIVE A (NON-REACTIVE) Hepatitis C Ab (EIA) NON-REACTIVE (NON-REACTIVE) 03/29/24 03/28/24 03/27/24 Range/Units 06:51 06:26 Unknown WBC 12.41 H 11.23 H (4.8-10.8) K/ul RBC 5.28 5.25 (4.70-6.10) M/uL Hgb 15.2 15.3 (14.0-18.0) g/dl Hct 45.5 45.0 (42.0-52.0) % MCV 86.2 85.7 (80.0-100.0) fL MCH 28.8 29.1 (25.0-34.0) pg MCHC 33.4 34.0 (32.0-36.0) g/dL RDW Std Deviation 49.2 H 49.0 H (36.4-46.3) fL RDW Coeff of Margy 15.9 H 16.0 H (11.5-14.5) % Plt Count 234 246 (130-400) K/uL MPV 11.5 11.9 (9.4-12.4) fL Immature Gran % (Auto) % Neut % (Auto) % Lymph % (Auto) % [place] % (Auto) % Eos % (Auto) % Baso % (Auto) % Neut # (Auto) (1.40-6.50) K/uL Lymph # (Auto) (1.20-3.40) K/uL [place] # (Auto) (0.11-0.59) K/uL Eos # (Auto) (0.00-0.50) K/uL Baso # (Auto) (0.00-0.20) K/uL Immature Gran # (Auto) (0.01-0.20) K/uL PT 11.9 (9.0-12.0) Seconds INR 1.1 (0.9-1.1) APTT (21-31) Seconds PTT Ratio D-Dimer (0-500) ug/L FEU Sodium 136 138 (136-145) mmol/L Potassium 3.7 4.0 (3.5-5.1) mmol/L Chloride 101 105 (98-107) mmol/L Carbon Dioxide 26 25 (21-32) mmol/L Anion Gap 9 8 (3-11) BUN 13 11 (6-23) mg/dl Creatinine 0.79 0.57 L (0.6-1.4) mg/dl Est Cr Clr Drug Dosing 111.3 153.9 ml/min Est GFR ( Amer) 113.9 130.3 ml/min Est GFR (Non-Af Amer) 98.3 112.4 ml/min BUN/Creatinine Ratio 16.5 19.3 (10-20) Glucose 124 H 90 (70-99(Fasting)) mg/dl Calcium 8.4 L 8.6 (8.6-10.3) mg/dl Phosphorus 3.4 3.1 (2.5-4.9) mg/dl Magnesium 2.0 1.9 (1.7-2.4) mg/dl Total Bilirubin 0.9 1.0 (0.2-1.0) mg/dl Direct Bilirubin (0-0.2) mg/dl AST 156 H 150 H (13-39) U/L ALT 109 H 104 H (7-52) U/L Alkaline Phosphatase 1029 H 848 H (34-104) U/L Troponin I High Sens (0-20) pg/ml Total Protein 7.0 6.8 (6.0-8.3) gm/dl Albumin 3.6 3.5 (3.4-5.0) gm/dl Globulin 3.4 3.3 (2.5-4.0) gm/dl Albumin/Globulin Ratio 1.1 1.1 (0.9-2) Lipase (11-82) U/L Procalcitonin (0-0.5) ng/ml Urine Color Urine Appearance (Clear) Urine pH (4.5-7.5) Ur Specific [place] (1.000-1.030) Urine Protein (Negative) Urine Glucose (UA) (Negative) Urine Ketones (Negative) Urine Blood (Negative) Urine Nitrite (Negative) Urine Bilirubin (Negative) Urine Urobilinogen (Negative) Ur Leukocyte Esterase (Negative) Urine RBC (0-2) /hpf Urine WBC (0-5) /hpf Ur Epithelial Cells (0-2) /hpf Urine Bacteria (None Seen) Stl C. cayetanensis PCR Not Detected (NotDetected) Stool Rotavirus A PCR Not Detected (NotDetected) Stl Adenov F 40/41 PCR Not Detected (NotDetected) Stool Astrovirus (PCR) Not Detected (NotDetected) Stool Campylobacter PCR Not Detected (NotDetected) Stool Cryptosporidium PCR Not Detected (NotDetected) Stl E.coli Shiga Tox PCR Not Detected (NotDetected) Stl Enterotoxigenic E PCR Not Detected (NotDetected) Stool EPEC (PCR) Not Detected (NotDetected) Stool EAEC (PCR) Not Detected (NotDetected) Stl E. histolytica PCR Not Detected (NotDetected) Stool Giardia Lamblia PCR Not Detected (NotDetected) Stool Salmonella PCR Not Detected (NotDetected) Stool Sapovirus (PCR) Not Detected (NotDetected) Stl P. shigelloides PCR Not Detected (NotDetected) Stl Shigella/EIEC PCR Not Detected (NotDetected) St Y.enterocolitica PCR Not Detected (NotDetected) Stool Vibrio (PCR) Not Detected (NotDetected) Stl Vibrio cholerae PCR Not Detected (NotDetected) Stl Norovirus GI/GII PCR Not Detected (NotDetected) Hepatitis A IgM Ab (NON-REACTIVE) Hep Bs Antigen (NON-REACTIVE) Hep Bs Ag Confirmation Hep B Core IgM Ab (NON-REACTIVE) Hepatitis C Ab (EIA) (NON-REACTIVE) 03/27/24 03/27/24 03/27/24 Range/Units 18:51 12:50 06:38 WBC 10.89 H (4.8-10.8) K/ul RBC 5.21 (4.70-6.10) M/uL Hgb 15.1 (14.0-18.0) g/dl Hct 44.2 (42.0-52.0) % MCV 84.8 (80.0-100.0) fL MCH 29.0 (25.0-34.0) pg MCHC 34.2 (32.0-36.0) g/dL RDW Std Deviation 47.9 H (36.4-46.3) fL RDW Coeff of Margy 15.7 H (11.5-14.5) % Plt Count 217 (130-400) K/uL MPV 12.6 H (9.4-12.4) fL Immature Gran % (Auto) 0.3 % Neut % (Auto) 67.6 % Lymph % (Auto) 20.3 % [place] % (Auto) 8.9 % Eos % (Auto) 2.3 % Baso % (Auto) 0.6 % Neut # (Auto) 7.36 H (1.40-6.50) K/uL Lymph # (Auto) 2.21 (1.20-3.40) K/uL [place] # (Auto) 0.97 H (0.11-0.59) K/uL Eos # (Auto) 0.25 (0.00-0.50) K/uL Baso # (Auto) 0.07 (0.00-0.20) K/uL Immature Gran # (Auto) 0.03 (0.01-0.20) K/uL PT (9.0-12.0) Seconds INR (0.9-1.1) APTT (21-31) Seconds PTT Ratio D-Dimer (0-500) ug/L FEU Sodium 138 (136-145) mmol/L Potassium 3.8 (3.5-5.1) mmol/L Chloride 105 (98-107) mmol/L Carbon Dioxide 24 (21-32) mmol/L Anion Gap 9 (3-11) BUN 12 (6-23) mg/dl Creatinine 0.51 L (0.6-1.4) mg/dl Est Cr Clr Drug Dosing 172.0 ml/min Est GFR ( Amer) 136.4 ml/min Est GFR (Non-Af Amer) 117.7 ml/min BUN/Creatinine Ratio 23.5 H (10-20) Glucose 78 (70-99(Fasting)) mg/dl Calcium 8.3 L (8.6-10.3) mg/dl Phosphorus (2.5-4.9) mg/dl Magnesium 1.7 (1.7-2.4) mg/dl Total Bilirubin (0.2-1.0) mg/dl Direct Bilirubin (0-0.2) mg/dl AST (13-39) U/L ALT (7-52) U/L Alkaline Phosphatase (34-104) U/L Troponin I High Sens 10.6 10.1 9.7 (0-20) pg/ml Total Protein (6.0-8.3) gm/dl Albumin (3.4-5.0) gm/dl Globulin (2.5-4.0) gm/dl Albumin/Globulin Ratio (0.9-2) Lipase (11-82) U/L Procalcitonin 7.20 H (0-0.5) ng/ml Urine Color Urine Appearance (Clear) Urine pH (4.5-7.5) Ur Specific [place] (1.000-1.030) Urine Protein (Negative) Urine Glucose (UA) (Negative) Urine Ketones (Negative) Urine Blood (Negative) Urine Nitrite (Negative) Urine Bilirubin (Negative) Urine Urobilinogen (Negative) Ur Leukocyte Esterase (Negative) Urine RBC (0-2) /hpf Urine WBC (0-5) /hpf Ur Epithelial Cells (0-2) /hpf Urine Bacteria (None Seen) Stl C. cayetanensis PCR (NotDetected) Stool Rotavirus A PCR (NotDetected) Stl Adenov F 40/41 PCR (NotDetected) Stool Astrovirus (PCR) (NotDetected) Stool Campylobacter PCR (NotDetected) Stool Cryptosporidium PCR (NotDetected) Stl E.coli Shiga Tox PCR (NotDetected) Stl Enterotoxigenic E PCR (NotDetected) Stool EPEC (PCR) (NotDetected) Stool EAEC (PCR) (NotDetected) Stl E. histolytica PCR (NotDetected) Stool Giardia Lamblia PCR (NotDetected) Stool Salmonella PCR (NotDetected) Stool Sapovirus (PCR) (NotDetected) Stl P. shigelloides PCR (NotDetected) Stl Shigella/EIEC PCR (NotDetected) St Y.enterocolitica PCR (NotDetected) Stool Vibrio (PCR) (NotDetected) Stl Vibrio cholerae PCR (NotDetected) Stl Norovirus GI/GII PCR (NotDetected) Hepatitis A IgM Ab (NON-REACTIVE) Hep Bs Antigen (NON-REACTIVE) Hep Bs Ag Confirmation Hep B Core IgM Ab (NON-REACTIVE) Hepatitis C Ab (EIA) (NON-REACTIVE) 03/26/24 03/26/24 Range/Units 21:30 18:43 WBC 13.13 H (4.8-10.8) K/ul RBC 5.87 (4.70-6.10) M/uL Hgb 17.0 (14.0-18.0) g/dl Hct 50.6 (42.0-52.0) % MCV 86.2 (80.0-100.0) fL MCH 29.0 (25.0-34.0) pg MCHC 33.6 (32.0-36.0) g/dL RDW Std Deviation 48.1 H (36.4-46.3) fL RDW Coeff of Margy 15.6 H (11.5-14.5) % Plt Count 262 (130-400) K/uL MPV 11.9 (9.4-12.4) fL Immature Gran % (Auto) 0.3 % Neut % (Auto) 67.7 % Lymph % (Auto) 22.6 % [place] % (Auto) 6.9 % Eos % (Auto) 1.7 % Baso % (Auto) 0.8 % Neut # (Auto) 8.89 H (1.40-6.50) K/uL Lymph # (Auto) 2.97 (1.20-3.40) K/uL [place] # (Auto) 0.91 H (0.11-0.59) K/uL Eos # (Auto) 0.22 (0.00-0.50) K/uL Baso # (Auto) 0.10 (0.00-0.20) K/uL Immature Gran # (Auto) 0.04 (0.01-0.20) K/uL PT (9.0-12.0) Seconds INR (0.9-1.1) APTT (21-31) Seconds PTT Ratio D-Dimer 2420 H* (0-500) ug/L FEU Sodium 137 (136-145) mmol/L Potassium 4.3 (3.5-5.1) mmol/L Chloride 103 (98-107) mmol/L Carbon Dioxide 25 (21-32) mmol/L Anion Gap 9 (3-11) BUN 14 (6-23) mg/dl Creatinine 0.76 (0.6-1.4) mg/dl Est Cr Clr Drug Dosing 115.2 ml/min Est GFR ( Amer) 115.7 ml/min Est GFR (Non-Af Amer) 99.9 ml/min BUN/Creatinine Ratio 18.4 (10-20) Glucose 85 (70-99(Fasting)) mg/dl Calcium 9.3 (8.6-10.3) mg/dl Phosphorus (2.5-4.9) mg/dl Magnesium (1.7-2.4) mg/dl Total Bilirubin 1.2 H (0.2-1.0) mg/dl Direct Bilirubin (0-0.2) mg/dl AST 154 H (13-39) U/L ALT 131 H (7-52) U/L Alkaline Phosphatase 814 H (34-104) U/L Troponin I High Sens 11.5 (0-20) pg/ml Total Protein 7.2 (6.0-8.3) gm/dl Albumin 3.8 (3.4-5.0) gm/dl Globulin 3.4 (2.5-4.0) gm/dl Albumin/Globulin Ratio 1.1 (0.9-2) Lipase 44 (11-82) U/L Procalcitonin (0-0.5) ng/ml Urine Color Yellow Urine Appearance Clear (Clear) Urine pH 7.5 (4.5-7.5) Ur Specific [place] 1.010 (1.000-1.030) Urine Protein 1+ H (Negative) Urine Glucose (UA) Negative (Negative) Urine Ketones Negative (Negative) Urine Blood Negative (Negative) Urine Nitrite Negative (Negative) Urine Bilirubin 1+ H (Negative) Urine Urobilinogen Negative (Negative) Ur Leukocyte Esterase Negative (Negative) Urine RBC 0-2 (0-2) /hpf Urine WBC 0-5 (0-5) /hpf Ur Epithelial Cells 0-2 (0-2) /hpf Urine Bacteria None Seen (None Seen) Stl C. cayetanensis PCR (NotDetected) Stool Rotavirus A PCR (NotDetected) Stl Adenov F 40/41 PCR (NotDetected) Stool Astrovirus (PCR) (NotDetected) Stool Campylobacter PCR (NotDetected) Stool Cryptosporidium PCR (NotDetected) Stl E.coli Shiga Tox PCR (NotDetected) Stl Enterotoxigenic E PCR (NotDetected) Stool EPEC (PCR) (NotDetected) Stool EAEC (PCR) (NotDetected) Stl E. histolytica PCR (NotDetected) Stool Giardia Lamblia PCR (NotDetected) Stool Salmonella PCR (NotDetected) Stool Sapovirus (PCR) (NotDetected) Stl P. shigelloides PCR (NotDetected) Stl Shigella/EIEC PCR (NotDetected) St Y.enterocolitica PCR (NotDetected) Stool Vibrio (PCR) (NotDetected) Stl Vibrio cholerae PCR (NotDetected) Stl Norovirus GI/GII PCR (NotDetected) Hepatitis A IgM Ab (NON-REACTIVE) Hep Bs Antigen (NON-REACTIVE) Hep Bs Ag Confirmation Hep B Core IgM Ab (NON-REACTIVE) Hepatitis C Ab (EIA) (NON-REACTIVE) Diagnostic Findings Chest X-Ray 03/26/24 18:38 XR chest 1V portable CLINICAL HISTORY: Chest pain, nonspecific TECHNIQUE: Single frontal radiograph of the chest was obtained. Comparison: Comparison is made to chest radiograph 12/12/2019 FINDINGS: No lines and tubes are seen. The cardiomediastinal silhouette is normal. Right lower lung airspace opacity is seen. No evidence of pleural effusion or pneumothorax. IMPRESSION: Right lower lung airspace opacity may reflect atelectasis, although pneumonia/aspiration cannot be excluded. ACT 112: Negative or not required by law. Electronically signed by: Kareem Veronica M.D. 03/26/2024 7:43 PM Abdomen/Pelvis CT 03/26/24 19:36 Exam(s): CT ABDOMEN + PELVIS With Contrast IV Amt: OPTIRAY 320 119ML EXAM: CT Abdomen and Pelvis With Intravenous Contrast CLINICAL HISTORY: diffuse abd pain. TECHNIQUE: Axial computed tomography images of the abdomen and pelvis with intravenous contrast. CTDI is 25.74 mGy and DLP is 1345.96 mGy-cm. Automated exposure control was utilized for the study. A dose lowering technique was utilized adhering to the principles of ALARA. CONTRAST: OPTIRAY 320 119ML of IV contrast COMPARISON: CT abdomen and pelvis with contrast dated 02/25/2022 FINDINGS: Lung bases: There is a solid lobulated mass in the anterior right lower lobe extending to the diaphragm, measuring 3.8 x 3.4 x 2.3 cm. Curvilinear changes noted involving the adjacent right middle lobe. No consolidation. ABDOMEN: Liver: There is extensive and diffuse abnormal heterogeneously hypoattenuating lesions throughout the liver with near-complete replacement of the hepatic parenchyma. The liver is now markedly enlarged, measuring up to 24.6 cm in craniocaudal length. The largest abnormal lesions are noted at the dome of the diaphragm with the single largest lesion measuring 6.3 x 5.7 x 3.5 cm. Gallbladder and bile ducts: Cholecystectomy. No ductal dilation. Pancreas: Unremarkable. No mass. No ductal dilation. Spleen: Unremarkable. No splenomegaly. Adrenals: Unremarkable. No mass. Kidneys and ureters: Kidneys demonstrate normal enhancement. The presumed cortical cyst without internal enhancing features is larger involving the superior lateral left kidney, now measuring 2.2 cm from 1.5 cm previously. No hydronephrosis or obstructing nephrolithiasis. Stomach and bowel: No evidence for bowel obstruction. No asymmetric bowel mucosal abnormality. Mild stool burden. PELVIS: Appendix: A normal caliber appendix is noted along the anterior and lateral pelvis. Bladder: Unremarkable. No mass. Reproductive: Unremarkable as visualized. ABDOMEN and PELVIS: Intraperitoneal space: Trace free fluid in the pelvis is noted without loculation. No free air. Bones/joints: No acute fracture. No dislocation. Soft tissues: Unremarkable. Vasculature: Atherosclerotic calcification of the aorta. No dissection or aneurysm. Lymph nodes: No significant abdominal or retroperitoneal lymphadenopathy. IMPRESSION: 1. There is extensive and diffuse abnormal heterogeneously hypoattenuating lesions throughout the liver with near-complete replacement of the hepatic parenchyma. The liver is now markedly enlarged, measuring up to 24.6 cm in craniocaudal length. The largest abnormal lesions are noted at the dome of the diaphragm with the single largest lesion measuring 6.3 x 5.7 x 3.5 cm. Findings are consistent with metastatic disease. 2. There is a solid lobulated mass in the anterior right lower lobe extending to the diaphragm, measuring 3.8 x 3.4 x 2.3 cm. Differential consideration includes primary neoplasm of the lung versus metastatic disease. 3. Trace free fluid in the pelvis is noted without loculation. This is presumed reactive from the hepatic process. Electronically signed by: Tom Burgos MD 03/26/24 22:06 PM Chest CTA 03/26/24 19:36 Exam(s): CTA CHEST IV Amt: OPTIRAY 320 119ML EXAM: CT Angiography Chest With Intravenous Contrast CLINICAL HISTORY: Evaluate for PE. TECHNIQUE: Axial computed tomographic angiography images of the chest with intravenous contrast. CTDI is 19.71 mGy and DLP is 646.41 mGy-cm. Automated exposure control was utilized for the study. A dose lowering technique was utilized adhering to the principles of ALARA. MIP reconstructed images were created and reviewed. COMPARISON: No relevant prior studies available. FINDINGS: Pulmonary arteries: No evidence for pulmonary embolism. Aorta: No acute findings. No thoracic aortic aneurysm. Lungs: Images and abnormal solid mass lesion with heterogeneous internal vascular flow involving the anterior right lower lobe measuring 4.1 x 3.1 x 2.4 cm. Curvilinear atelectatic changes involving the inferolateral right middle lobe. The lungs are otherwise well-aerated without definite additional lesions are airspace consolidation. Minimal curvilinear changes noted at the lung bases. Pleural space: Trace subcentimeter right pleural effusion noted in the posterior costophrenic margin. No loculation. No pneumothorax. Heart: Unremarkable. No cardiomegaly. No significant pericardial effusion. Bones/joints: No acute fracture. No dislocation. Soft tissues: Unremarkable. Lymph nodes: An abnormal soft tissue mass is noted in the inferior right hilum with attenuation of the regional pulmonary artery structures and complete occlusion of the proximal right middle lobe bronchial segments. Subcarinal lymphadenopathy noted measuring 3.2 cm in diameter. IMPRESSION: 1. Images and abnormal solid mass lesion with heterogeneous internal vascular flow involving the anterior right lower lobe measuring 4.1 x 3.1 x 2.4 cm. Favor primary lung neoplasm over metastatic disease. 2. An abnormal soft tissue mass is noted in the inferior right hilum with attenuation of the regional pulmonary artery structures and complete occlusion of the proximal right middle lobe bronchial segments. In addition, there is prominent subcarinal lymphadenopathy noted, consistent with metastatic disease. 3. No evidence for pulmonary embolism. Electronically signed by: Tom Burgos MD 03/26/24 22:20 PM Brain MRI 03/28/24 06:52 MR brain wo/w con CLINICAL HISTORY: r/o metastatic disease to brain TECHNIQUE: Multiplanar and multisequence MR images of the brain were obtained prior to and following administration of gadolinium contrast. Comparison: None available at the time of this dictation. FINDINGS: No abnormal restricted diffusion is identified. Foci of T2 and FLAIR hyperintensity are noted in the paraventricular areas consistent with chronic small vessel ischemic disease. The ventricular system is normal in appearance. No mass or abnormal enhancement is seen. There is no mass effect or midline shift. There is no evidence of acute intraparenchymal hemorrhage. No extra axial fluid collections are seen. The corpus callosum, pituitary gland, and cerebellar tonsils appear grossly unremarkable. Flow voids of the major intracranial arterial vessels are identified. The imaged portions of the paranasal sinuses, mastoid air cells, and orbits are unremarkable. IMPRESSION: No acute abnormality and in particular no evidence of metastatic disease. ACT 112: Negative or not required by law. Electronically signed by: Kareem Veronica M.D. 03/28/2024 7:22 PM Orbit X-Ray 03/28/24 09:18 BONY ORBITS 3 VIEWS CLINICAL HISTORY: MRI clearance. FINDINGS: 3 views of the bony orbits are obtained. No prior studies are available for comparison at the time of dictation. There is no radiodense/metallic foreign body seen in the region of the bony orbits. The bony orbits are intact as imaged. The visualized paranasal sinuses and the mastoid air cells appear clear. The imaged calvarium appears intact. IMPRESSION: There is no radiodense/metallic foreign body seen in the region of the bony orbits. ACT 112: Negative or not required by law. Electronically signed by: Juventino Bryant M.D. 03/28/2024 9:45 AM Chest X-Ray 03/28/24 13:37 SINGLE VIEW CHEST CLINICAL HISTORY: Follow-up status post bronchoscopy. FINDINGS: An AP, portable, upright chest radiograph is compared to chest x-ray and chest CT dated 03/26/2024. The cardiomediastinal silhouette is unremarkable. Emphysema and chronic interstitial thickening is similar to previous. A right basilar mass lesion was better assessed on the recent chest CT. There is a small right pleural effusion. Atelectasis is noted at the left lung base. No pneumothorax is seen. The bony thorax is grossly intact. IMPRESSION: 1. No pneumothorax is identified post procedure. 2. Emphysema. 3. A right basilar mass lesion was better assessed on the recent chest CT. 4. Small right pleural effusion. ACT 112: Negative or not required by law. Electronically signed by: Juventino Bryant M.D. 03/28/2024 2:58 PM Chest CTA 03/29/24 21:44 CHEST CTA for PULMONARY ARTERIES CT DOSE: 650.38 mGy.cm HISTORY: pleuritic cp, shortness of breath TECHNIQUE: Multiaxial CT images of the chest were performed following the intravenous administration of contrast to evaluate the pulmonary arteries. 3D/Maximal intensity projection images were also obtained. Sagittal and coronal reformations were also reviewed. A dose lowering technique was utilized adhering to the principles of ALARA. COMPARISON STUDY: Chest CTA 03/26/2024. FINDINGS: No evidence for an aortic dissection. The heart is normal in size. No pleural or pericardial effusions. Multiple hypodense lesions again noted seen throughout the liver consistent with metastatic disease. There is overall suboptimal opacification of the pulmonary arteries. However, no filling defects within the pulmonary arteries to suggest a pulmonary embolus. There is mild mass effect along the proximal right middle and right lower lobe pulmonary arteries due to the right lower lobe lesion and right hilar lymphadenopathy. The right lower lobe lesion is partially obscured by the adjacent consolidation/collapse of the right middle lobe which has progressed in the interval. This right lower lobe lesion measures approximately 4.8 cm and is best seen on image 70. There is complete occlusion of the right middle lobe bronchus, unchanged. Bibasilar linear densities have progressed. This favors subsegmental atelectasis. A superimposed pneumonia would be difficult to exclude. Mild emphysema. No suspicious lytic or blastic osseous lesions. Subcarinal lymphadenopathy is again noted. No left hilar lymphadenopathy. IMPRESSION: 1. No evidence for a pulmonary embolus. 2. Redemonstration of the 4.8 cm right lower lobe mass with associated right hilar and subcarinal lymphadenopathy consistent with metastatic disease. 3. Multiple hepatic metastases are partially visualized on this study. 4. There is complete collapse of the right middle lobe due to occlusion of the right middle lobe bronchus from the right hilar lymphadenopathy. This has progressed in the interval. 4. Additional bibasilar linear densities are nonspecific but favor subsegmental atelectasis. A superimposed pneumonia would be difficult to exclude. ACT 112: Negative or not required by law. Electronically signed by: Geoff Enriquez M.D. 03/30/2024 8:36 AM PG Care Time/CCT Total # of Minutes Spent Total Time Spent with Patient: Total time spent is greater than 50% in coordination of care (as documented) at patient's floor/unit and/or counseling patient: I spent 130 minutes overall addressing this complex case: 20 min in medical data review/discussion with referring provider(s) and/or preparation for the visit 20 min in direct interaction with the patient/exam 60 min in Advance Care Planning/Goals of Care discussions as detailed above in note (must be >16min) 10 min in subsequent review and synthesis of assessment and plan 20 min communicating with other providers regarding the patient's case: oncology, nursing, primary team Advanced Care Planning 64363 Advanced Care Planning 30 Min [id number] Advanced Care Planning Additional 30 Min Coding Level of Care Code 30845 INT INP/OBS CARE 375MIN Diagnoses Dyspnea and respiratory abnormalities R06.00; R06.89 Weakness generalized R53.1 Drug-induced constipation K59.03 Constipation type: drug induced constipation Anorexia R63.0 Cancer cachexia R64 Advanced care planning/counseling discussion Z71.89 Palliative care by specialist Z51.5 Additional Codes Advanced Care Planning - 89221 Advanced Care Planning 30 Min: 64674 Advanced Care Planning 30 Min ([id number]) Advanced Care Planning - 00721 Advanced Care Planning Additional 30 Min: 58556 Advanced Care Planning Additional 30 Min ([id number])
--- NOTE | 2024-03-30 16:16 | Hospitalist Progress Note ---
Date of Service March 30, 2024 Assessment & Plan (1) Lung mass: Plan: 58-year-old male with PMH of hypertension, lumbar degenerative disc disease, secondary polycythemia, ongoing tobacco use, anxiety, chronic dizziness presents with on and off chest pains and also feeling of bloating in abdomen. Patient stated symptoms of chest pain most times it comes when he climbs steps and resolves after resting. Admitting imaging revealed signs concerning for metastatic disease. He is being managed for the following: RML lung mass c/f small cell lung cancer Mediastinal adenopathy Hypoxia: Patient with hypoxemia related to extensive disease burden from small cell lung cancer. Admitting imagings: CTAP concerning for metastatic liver disease. Solid lobulated mass in the anterior right lower lobe concerning for primary neoplasm of the lung versus metastatic disease. Trace pleural fluid in the pelvis noted without loculation. CTA chest: Concerning for primary lung neoplasm over metastatic disease. Prominent subcarinal lymphadenopathy noted consistent with metastatic disease. No PE. Brain MRI: No evidence of metastatic disease. No acute finding. Bronchoscopy performed on 03/28 concerning for small cell lung cancer---"100% occlusion of the right middle lobe due to extrinsic compression of the tumor...subcarinal lymph node was biopsied 4 times ...positive x 2 for preliminary cytology of small cell lung cancer" 03/28 biopsy result - s/o small cell carcinoma x rt lower lobe. LN station 7 - Malignant cells present consistent with metastatic small cell carcinoma Rad Onc consult placed for occlusion of the right middle lobe due to extrinsic compression noted on bronchoscopy and consideration of palliative radiation --> recommends med onc fu as OP. Radiation oncology, medical oncology and palliative care following. Pulmonology evaluated, appreciate recommendation. Pt is aware. Pain mgmt oxycodone moderate, dilaudid severe and breakthrough Liver lesions /Transaminitis : likely 2/2 metastatic disease. GI evaled, appreciate recs. LFT trending down today. Noncardiac chest pains: EKG nonspecific findings. Initial troponin is okay.. ECHO stable,likely secondary to ongoing metastatic process, monitor on tele Other chronic medical conditions: Continue with/resume home meds as and when able. hyperlipidemia: hold statin for transaminitis for now hypertension: on indapamide. we will monitor depression/ anxiety: on Prozac. Ativan for anxiety tobacco abuse: encouraged cessation. DVT prophylaxis: Hep sc. disposition: telemetry. pt/ot. CM to assist w/ dc plan. DNR/DNI. Updated pt's jannie over phone, about 8 min. discussed each/every point above. answered all her questions. Admission and Anticipated Discharge Date Admission Date: March 27, 2024 Subjective Patient was seen and examined at bedside. Patient reports improving hemoptysis - one episode of scant blood streat sputum today, denies chest pain, reports no nausea or vomiting, reports eating okay, denies abdominal pain, reports bowel movement 4 days ago. Continue with bowel regimen. add lactulose one time dose. Reports right upper belly pain about the same since presentation. Physical Exam Physical Exam: General- Not in distress , 3L O2 via NC. Head- atraumatic Eyes- PERRL., ENT- oropharynx clear Neck- supple, no JVD. Lungs- clear to auscultation no wheezing or crackles Heart- regular rate and rhythm; no murmur, no gallop. Abdomen- normal bowel sounds, soft, ruq tender, no distension. Extremities- no pretibial edema, no erythema seen. Neuro- alert, oriented PERRL, EOMI; no facial palsy; no dysarthria; moves extremities. Skin- warm & dry Results & Data Results & Data Vital Signs (Past 12 Hours) Vital Signs Temp Pulse Pulse Resp BP BP Pulse Ox 03/30/24 15:45 37.1 C 83 18 116/71 93 03/30/24 15:35 83 03/30/24 12:08 36.6 C 89 19 131/78 92 03/30/24 07:35 89 03/30/24 07:35 03/30/24 07:30 36.8 C 96 H 19 129/77 94 O2 Del Method O2 Flow Rate 03/30/24 15:45 Nasal Cannula 3.0 03/30/24 15:35 03/30/24 12:08 Nasal Cannula 3.0 03/30/24 07:35 03/30/24 07:35 Nasal Cannula 3 03/30/24 07:30 Nasal Cannula 3.0
[2024-03-30] MEDS: LACTULOSE SYRUP 20 GM/30 ML UDC PO ONE (16:31)
[2024-03-31] MEDS: MELATONIN 3 MG TAB PO PRN (02:51)
[2024-03-31 07:29] LABS: Hematocrit (blood only) 45.2 % (42.0-52.0); Mean Corpuscular Hemoglobin 28.6 pg (25.0-34.0); Mean Corpuscular Hgb Conc 33.2 g/dL (32.0-36.0); Mean Corpuscular Volume 86.3 fL (80.0-100.0); Mean Platelet Volume 11.7 fL (9.4-12.4); Platelet Count 324 K/uL (130-400); RDW Coefficient of Variation 15.6 % (11.5-14.5); RDW Standard Deviation 47.9 fL (36.4-46.3); Red Blood Count 5.24 M/uL (4.70-6.10); White Blood Count 13.85 K/ul (4.8-10.8)
[2024-03-31 08:04] LABS: BUN Creatinine Ratio 17.5 (10-20); Calcium 8.7 mg/dl (8.6-10.3); Creatinine Clr Calc Pharmacy 139.6 ml/min; Est GFR (Non-African American) 107.9 ml/min; Phosphorus 2.8 mg/dl (2.5-4.9); Potassium 3.9 mmol/L (3.5-5.1)
--- NOTE | 2024-03-31 17:07 | Hospitalist Progress Note ---
Date of Service March 31, 2024 Assessment & Plan (1) Lung mass: Plan: 58-year-old male with PMH of hypertension, lumbar degenerative disc disease, secondary polycythemia, ongoing tobacco use, anxiety, chronic dizziness presents with on and off chest pains and also feeling of bloating in abdomen. Patient stated symptoms of chest pain most times it comes when he climbs steps and resolves after resting. Admitting imaging revealed signs concerning for metastatic disease. He is being managed for the following: RML lung mass c/f small cell lung cancer Mediastinal adenopathy Hypoxia: Patient with hypoxemia related to extensive disease burden from small cell lung cancer. Admitting imagings: CTAP concerning for metastatic liver disease. Solid lobulated mass in the anterior right lower lobe concerning for primary neoplasm of the lung versus metastatic disease. Trace pleural fluid in the pelvis noted without loculation. CTA chest: Concerning for primary lung neoplasm over metastatic disease. Prominent subcarinal lymphadenopathy noted consistent with metastatic disease. No PE. Brain MRI: No evidence of metastatic disease. No acute finding. Bronchoscopy performed on 03/28 concerning for small cell lung cancer---"100% occlusion of the right middle lobe due to extrinsic compression of the tumor...subcarinal lymph node was biopsied 4 times ...positive x 2 for preliminary cytology of small cell lung cancer" 03/28 biopsy result - s/o small cell carcinoma x rt lower lobe. LN station 7 - Malignant cells present consistent with metastatic small cell carcinoma Rad Onc consult placed for occlusion of the right middle lobe due to extrinsic compression noted on bronchoscopy and consideration of palliative radiation --> recommends med onc fu as OP. Radiation oncology, medical oncology and palliative care following. Pulmonology evaluated, appreciate recommendation. Pt is aware. Pain mgmt oxycodone moderate, dilaudid severe and breakthrough Liver lesions /Transaminitis : likely 2/2 metastatic disease. GI evaled, appreciate recs. LFT trending down today. Noncardiac chest pains: EKG nonspecific findings. Initial troponin is okay.. ECHO stable,likely secondary to ongoing metastatic process, monitor on tele Other chronic medical conditions: Continue with/resume home meds as and when able. hyperlipidemia: hold statin for transaminitis for now hypertension: on indapamide. we will monitor depression/ anxiety: on Prozac. Ativan for anxiety tobacco abuse: encouraged cessation. DVT prophylaxis: Hep sc. disposition: telemetry. pt/ot. CM to assist w/ dc plan. DNR/DNI. Updated pt's jannie over phone 03/30. Admission and Anticipated Discharge Date Admission Date: March 27, 2024 Subjective Patient was seen and examined at bedside. No further episodes of hematemesis per RN. Per RN no new acute event overnight, patient eating okay. Patient appears tired, denies increased pain, reports feeling weak today. Patient has not moved bowels in several days, adding another dose of lactulose today. Follow. Continue other bowel regimen. Patient denies nausea or vomiting. Physical Exam Physical Exam: General- Not in distress , 4L O2 via NC. Head- atraumatic Eyes- PERRL., ENT- oropharynx clear Neck- supple, no JVD. Lungs- clear to auscultation no wheezing or crackles Heart- regular rate and rhythm; no murmur, no gallop. Abdomen- normal bowel sounds, soft, ruq tender, no distension. Extremities- no pretibial edema, no erythema seen. Neuro- alert, oriented PERRL, EOMI; no facial palsy; no dysarthria; moves extremities. Skin- warm & dry Results & Data Results & Data Vital Signs (Past 12 Hours) Vital Signs Temp Pulse Pulse Resp BP Pulse Ox Pulse Ox 03/31/24 15:46 37.0 C 103 H 20 122/64 92 03/31/24 15:21 107 H 03/31/24 15:17 91 03/31/24 12:47 95 H 03/31/24 11:25 36.6 C 100 H 20 132/79 91 03/31/24 08:00 03/31/24 07:28 37.0 C 108 H 20 119/77 92 Pulse Ox Pulse Ox O2 Del Method O2 Flow Rate O2 Flow Rate O2 Flow Rate O2 Flow Rate 03/31/24 15:46 Nasal Cannula 4 03/31/24 15:21 03/31/24 15:17 93 77 L 3.5 3.5 0 03/31/24 12:47 03/31/24 11:25 Nasal Cannula 4 03/31/24 08:00 Nasal Cannula 4 03/31/24 07:28 Nasal Cannula 4
[2024-03-31] MEDS: HYDROmorphone INJ 1 MG/ML SYRINGE IV PRN (22:52)
--- NOTE | 2024-03-31 23:48 | Communication Note ---
Date of Service: March 31, 2024 Brief Pall Med Note Grupo is being followed for adv cancer, ACP, cancer pain and symptom mgt Pain remains intense, abd distended and tender He has only use 1 dose Dilaudid Has not taken PO Dilaudid Trying "not to over do it with pain med" Encouraged to use meds as needed to improve comfort, will help us determine if a long acting med might be more helpful once an accurate assessment of opioid need is determined. he is willing to give chemo a try. he has a v high tumor burden. if dc is not planned soon would consider offering inpatient chemo given this si SCLC Thank you for allowing us to participate in the ongoing care of this patient. Please don't hesitate to call or page with any additional concerns. Waleska Oliva DNP Palliative Care
[2024-04-01 07:39] LABS: Hematocrit (blood only) 40.8 % (42.0-52.0); Hemoglobin 13.9 g/dl (14.0-18.0); Mean Corpuscular Hemoglobin 28.7 pg (25.0-34.0); Mean Corpuscular Hgb Conc 34.1 g/dL (32.0-36.0); Mean Corpuscular Volume 84.3 fL (80.0-100.0); Mean Platelet Volume 11.6 fL (9.4-12.4); Platelet Count 318 K/uL (130-400); RDW Coefficient of Variation 15.5 % (11.5-14.5); RDW Standard Deviation 47.4 fL (36.4-46.3); Red Blood Count 4.84 M/uL (4.70-6.10); White Blood Count 10.95 K/ul (4.8-10.8)
[2024-04-01] MEDS: HYDROmorphone HCL 4 MG TAB PO PRN (08:47)
[2024-04-01] MEDS: LACTULOSE SYRUP 20 GM/30 ML UDC PO ONE (08:50)
[2024-04-01 08:51] LABS: Calcium 8.7 mg/dl (8.6-10.3); Potassium 3.5 mmol/L (3.5-5.1)
[2024-04-01 08:56] LABS: BUN Creatinine Ratio 16.4 (10-20); Creatinine Clr Calc Pharmacy 162.1 ml/min; Est GFR (African American) 132.2 ml/min; Est GFR (Non-African American) 114.1 ml/min
--- NOTE | 2024-04-01 17:13 | Hospitalist Progress Note ---
Date of Service April 01, 2024 Assessment & Plan (1) Lung mass: Plan: 58-year-old male with PMH of hypertension, lumbar degenerative disc disease, secondary polycythemia, ongoing tobacco use, anxiety, chronic dizziness presents with on and off chest pains and also feeling of bloating in abdomen. Patient stated symptoms of chest pain most times it comes when he climbs steps and resolves after resting. Admitting imaging revealed signs concerning for metastatic disease. He is being managed for the following: RML lung mass c/f small cell lung cancer Mediastinal adenopathy Hypoxia: Patient with hypoxemia related to extensive disease burden from small cell lung cancer. Admitting imagings: CTAP concerning for metastatic liver disease. Solid lobulated mass in the anterior right lower lobe concerning for primary neoplasm of the lung versus metastatic disease. Trace pleural fluid in the pelvis noted without loculation. CTA chest: Concerning for primary lung neoplasm over metastatic disease. Prominent subcarinal lymphadenopathy noted consistent with metastatic disease. No PE. Brain MRI: No evidence of metastatic disease. No acute finding. Bronchoscopy performed on 03/28 concerning for small cell lung cancer---"100% occlusion of the right middle lobe due to extrinsic compression of the tumor...subcarinal lymph node was biopsied 4 times ...positive x 2 for preliminary cytology of small cell lung cancer" 03/28 biopsy result - s/o small cell carcinoma x rt lower lobe. LN station 7 - Malignant cells present consistent with metastatic small cell carcinoma 03/28 bronchoscopy wash pos for C albicans, likely colonization. Rad Onc consult placed for occlusion of the right middle lobe due to extrinsic compression noted on bronchoscopy and consideration of palliative radiation --> recommends med onc fu as OP. Radiation oncology, medical oncology and palliative care following. Pulmonology evaluated, appreciate recommendation. Pt is aware. Pain mgmt oxycodone moderate, dilaudid severe and breakthrough Liver lesions /Transaminitis : likely 2/2 metastatic disease. GI evaled, appreciate recs. f/u GI as OP. Noncardiac chest pains: EKG nonspecific findings. Initial troponin is okay.. ECHO stable,likely secondary to ongoing metastatic process, monitor on tele Other chronic medical conditions: Continue with/resume home meds as and when able. hyperlipidemia: hold statin for transaminitis for now hypertension: on indapamide. we will monitor depression/ anxiety: on Prozac. Ativan for anxiety tobacco abuse: encouraged cessation. DVT prophylaxis: Hep sc. disposition: telemetry. pt/ot. CM to assist w/ dc plan. likely rehab. DNR/DNI. Updated pt's jannie over phone 03/30. Admission and Anticipated Discharge Date Admission Date: March 27, 2024 Subjective Patient was seen and examined at bedside. Intermittent episodes of scant blood in sputum per pt. Pt w/ better pain control today, feels better, eating ok, no n,v. Pt moved bowel. Patient denies nausea or vomiting. Physical Exam Physical Exam: General- Not in distress , 4L O2 via NC. Head- atraumatic Eyes- PERRL., ENT- oropharynx clear Neck- supple, no JVD. Lungs- clear to auscultation no wheezing or crackles Heart- regular rate and rhythm; no murmur, no gallop. Abdomen- normal bowel sounds, soft, ruq tender, no distension. Extremities- no pretibial edema, no erythema seen. Neuro- alert, oriented PERRL, EOMI; no facial palsy; no dysarthria; moves extremities. Skin- warm & dry Results & Data Results & Data Vital Signs (Past 12 Hours) Vital Signs Temp Pulse Pulse Resp BP BP Pulse Ox 04/01/24 15:42 36.3 C L 84 19 117/72 94 04/01/24 15:30 86 04/01/24 13:26 82 04/01/24 11:40 36.6 C 89 19 126/70 92 04/01/24 08:00 04/01/24 07:55 36.6 C 90 19 99/62 L 93 O2 Del Method O2 Flow Rate 04/01/24 15:42 Nasal Cannula 04/01/24 15:30 04/01/24 13:26 04/01/24 11:40 Nasal Cannula 04/01/24 08:00 Nasal Cannula 4 04/01/24 07:55 Nasal Cannula
[2024-04-02 06:35] LABS: Hemoglobin 13.9 g/dl (14.0-18.0); Mean Corpuscular Hemoglobin 28.6 pg (25.0-34.0); Mean Corpuscular Hgb Conc 33.9 g/dL (32.0-36.0); Mean Corpuscular Volume 84.4 fL (80.0-100.0); Mean Platelet Volume 11.5 fL (9.4-12.4); Platelet Count 356 K/uL (130-400); RDW Coefficient of Variation 15.4 % (11.5-14.5); RDW Standard Deviation 47.2 fL (36.4-46.3); Red Blood Count 4.86 M/uL (4.70-6.10)
[2024-04-02 07:42] LABS: BUN Creatinine Ratio 19.6 (10-20); Calcium 8.4 mg/dl (8.6-10.3); Creatinine Clr Calc Pharmacy 175.4 ml/min; Est GFR (African American) 136.4 ml/min; Est GFR (Non-African American) 117.7 ml/min; Magnesium 1.9 mg/dl (1.7-2.4); Phosphorus 3.5 mg/dl (2.5-4.9); Potassium 3.2 mmol/L (3.5-5.1)
[2024-04-02] MEDS: POTASSIUM CHLORIDE CRTAB 20 MEQ TABCR PO SCH (10:20)
--- NOTE | 2024-04-02 14:02 | Discharge Summary ---
Date of Service April 02, 2024 Admission HPI Per Admitting Provider 58-year-old male with past med history significant for hypertension, lumbar degenerative disc disease, secondary polycythemia, ongoing tobacco use, anxiety, chronic dizziness presents with on and off chest pains and also feeling of bloating in abdomen. Patient states symptoms of chest pain most times it comes when he climbs steps and resolves after resting. Also lately feeling bloating in the abdomen. Denies shortness of breath. Has chronic cough. Denies fevers. No headache. Says is always dizzy. Has some runny nose. No sore throat. Appetite is okay. Few days back had diarrhea but that resolved now.. Couple days ago he had some black stool. Micturating okay. No rash. No swelling the legs. Hemodynamics are okay currently. Past med history. As mentioned above past surgical history. Colonoscopy. Excision of right parotid tumor. Excision of left parotid tumor. Cholecystectomy. Right foot corrective surgery for clubfoot. Social history. . Smokes 1.5 pack cigarette daily since age of 18. alcohol occasional. No drug use. Family history. Father had cancer. Mother had glaucoma. Alzheimer's. Brother has A-fib. Admission Exam Per Admitting Provider General- Not in distress Head- atraumatic Eyes- PERRL., ENT- oropharynx clear Neck- supple, no JVD. Lungs- clear to auscultation no wheezing or crackles Heart- regular rate and rhythm; no murmur, no gallop. Abdomen- normal bowel sounds, soft, nontender, no distension. Extremities- no pretibial edema, no erythema seen. Neuro- alert, oriented PERRL, EOMI; no facial palsy; no dysarthria; moves extremities. Skin- warm & dry Principal Diagnosis Right lung mass, small cell cancer Metastatic small cell cancer Transaminitis/liver metastasis Discharge Exam General- Not in distress , 4L O2 via NC. Head- atraumatic Eyes- PERRL., ENT- oropharynx clear Neck- supple, no JVD. Lungs- clear to auscultation no wheezing or crackles Heart- regular rate and rhythm; no murmur, no gallop. Abdomen- normal bowel sounds, soft, ruq tender, no distension. Extremities- no pretibial edema, no erythema seen. Neuro- alert, oriented PERRL, EOMI; no facial palsy; no dysarthria; moves extremities. Skin- warm & dry Discharge Data Allergies Allergy/AdvReac Type Severity Reaction Status Date / Time oxycodone AdvReac Intermediate CONFUSION, Verified 03/26/24 21:26 CRAZY FEELING Consultations 03/26/24 22:29 ED Decision to Admit Stat 03/27/24 08:00 Consult Cardiology Routine Consult Pulmonology Routine 03/28/24 12:52 Consult Palliative Care Routine 03/28/24 13:39 Consult Oncology Routine Consult Radiation Oncology Routine 03/29/24 10:05 Consult Gastroenterology Routine Procedures Performed Operation Date: 03/28/24 15:45 Actual Procedures p Endobronchial Ultrasound(Not Applicable) - Vitaly Magallanes MD Ordered Studies 03/26/24 19:36 CT abd pelvis IV con only Stat CT angio chest PE protocol Stat 03/28/24 06:52 MR brain wo/w con Routine 03/29/24 US point of care ultrasound Routine 03/29/24 21:44 CT angio chest PE protocol Stat Hospital Course (1) Lung mass: 58-year-old male with PMH of hypertension, lumbar degenerative disc disease, secondary polycythemia, ongoing tobacco use, anxiety, chronic dizziness presents with on and off chest pains and also feeling of bloating in abdomen. Patient stated symptoms of chest pain most times it comes when he climbs steps and resolves after resting. Admitting imaging revealed signs concerning for metastatic disease. He is being managed for the following: RML lung mass c/f small cell lung cancer Mediastinal adenopathy Hypoxia: Patient with hypoxemia related to extensive disease burden from small cell lung cancer. Admitting imagings: CTAP concerning for metastatic liver disease. Solid lobulated mass in the anterior right lower lobe concerning for primary neoplasm of the lung versus metastatic disease. Trace pleural fluid in the pelvis noted without loculation. CTA chest: Concerning for primary lung neoplasm over metastatic disease. Prominent subcarinal lymphadenopathy noted consistent with metastatic disease. No PE. Brain MRI: No evidence of metastatic disease. No acute finding. Bronchoscopy performed on 03/28 concerning for small cell lung cancer---"100% occlusion of the right middle lobe due to extrinsic compression of the tumor...subcarinal lymph node was biopsied 4 times ...positive x 2 for preliminary cytology of small cell lung cancer" 03/28 biopsy result - s/o small cell carcinoma x rt lower lobe. LN station 7 - Malignant cells present consistent with metastatic small cell carcinoma 03/28 bronchoscopy wash pos for C albicans, likely colonization, d/w Pulm 04/02. Rad Onc consult placed for occlusion of the right middle lobe due to extrinsic compression noted on bronchoscopy and consideration of palliative radiation --> recommends med onc fu as OP. Radiation oncology, medical oncology and palliative care following. Pulmonology evaluated, appreciate recommendation. Pt is aware. Pain mgmt oxycodone moderate, dilaudid severe and breakthrough. D/w oncology 04/02, plan to start chemo as OP. Liver lesions /Transaminitis : likely 2/2 metastatic disease. GI evaled, appreciate recs. f/u GI as OP. Noncardiac chest pains: EKG nonspecific findings. Initial troponin is okay.. ECHO stable,likely secondary to ongoing metastatic process, monitor on tele Other chronic medical conditions: Continue with/resume home meds as and when able. hyperlipidemia: hold statin for transaminitis for now hypertension: on indapamide. we will monitor depression/ anxiety: on Prozac. Ativan for anxiety tobacco abuse: encouraged cessation. DVT prophylaxis: Hep sc. DNR/DNI. Updated pt's jannie over phone 03/30. Patient is being discharged to home with following instruction at the point of discharge: Follow-up with your primary care physician within a week time and likely you will need labs CBC/CMP/magnesium/phosphorus. You were diagnosed with metastatic small cell cancer of the lung, follow-up with oncology within a week time upon discharge and you will likely be started on chemotherapy. Recommend you continue to follow-up with palliative care as an outpatient. You will be discharged with few days worth of pain medication, you will need further evaluation/management either by your PCP office or your palliative physician or your oncology physician for further pain management prescription. While on opiate pain medication, utilize [id number] laxatives/stool softener with a goal of 1-2 bowel movements a day. For your liver lesions/elevated liver enzymes, recommend you follow-up with GI physician as an outpatient. Coordinate with your PCP office to set up the test. Take your medications as prescribed. Please make sure that you are able to get your medications today by calling your pharmacy before you leave the hospital so that your treatment continuity is not broken. Home Health Attestation I certify that this patient is under my care and that I, or a physicians certified surgical assistant working with me, had a face to-face encounter that meets the home health [id number] encounter requirements with this patient. The encounter with the patient was in whole, or in part, for the following medical condition, which is the primary reason for home health care (list medical condition): I certify that, based on my findings, the following services are medically necessary home health services: My clinical findings support the need for the above services because: Further, I certify that my clinical findings support that this patient is homebound (i.e. absences from home require considerable and taxing effort and are for medical reasons or sikhism services or infrequently or of short durat ion when for other reasons) because: Certification for Home Health Services: Based on the above findings, I certify that this patient is confined to the home and needs intermittent nursing home care, physical therapy and/or speech therapy or continues to need occupational therapy. The patient is under my care, and I have initiated the establishment of the plan of care. This patient will be followed by a physician who will periodically review the plan of care. Total Time Total Time Spent Total Time Spent (In Minutes): 45 Discharge Plan Discharge Items Patient Disposition: Home - Self-Care Reason For Visit: CHEST PAIN, LUNG MASS Discharge Diagnosis: Right lung mass, small cell cancer Metastatic small cell cancer Transaminitis/liver metastasis Activity: Resume your previous activity Non-emergency contact: Primary Care Provider Call non-emergency contact if: you have any medication questions and your symptoms worsen Follow-up/Referrals: Ilya Irwin MD [Primary Care Provider] - (Date & Time 04/04/2024 3:00 PM Provider Virginia Hall MD Department [facility] ) Diet: Regular Addtl Attending Provider Instructions: Follow-up with your primary care physician within a week time and likely you will need labs CBC/CMP/magnesium/phosphorus. You were diagnosed with metastatic small cell cancer of the lung, follow-up with oncology within a week time upon discharge and you will likely be started on chemotherapy. Recommend you continue to follow-up with palliative care as an outpatient. You will be discharged with few days worth of pain medication, you will need further evaluation/management either by your PCP office or your palliative physician or your oncology physician for further pain management prescription. While on opiate pain medication, utilize [id number]-blnziek laxatives/stool softener with a goal of 1-2 bowel movements a day. For your liver lesions/elevated liver enzymes, recommend you follow-up with GI physician as an outpatient. Coordinate with your PCP office to set up the test. Take your medications as prescribed. Please make sure that you are able to get your medications today by calling your pharmacy before you leave the hospital so that your treatment continuity is not broken. Pending Studies at Discharge: Yes Stand-Alone Forms: [facility], Smoking Cessation Medications and DC Order Prescriptions: New hydromorphone 4 mg Tablet 4 mg PO Q4H PRN (Reason: severe pain) 5 Days Qty: 30 0RF oxycodone 5 mg tablet 5 mg PO Q8H PRN (Reason: pain (scale score 4-6)) 5 Days Qty: 15 0RF Continued fluoxetine [Prozac] 40 mg Capsule 40 mg PO QAM meclizine 25 mg Tablet 25 mg PO TID PRN (Reason: Dizziness) aspirin 81 mg Tablet,Delayed Release (Dr/Ec) 81 mg PO DAILY indapamide 1.25 mg tablet 1.25 mg PO QAM atorvastatin 40 mg tablet 40 mg PO QAM sildenafil [Viagra] 25 mg Tablet 25 mg PO DIRECTED PRN (Reason: Sexual Activity) Rx Instructions: administer 30 minutes to 4 hours before activity albuterol sulfate 90 mcg/actuation HFA aerosol inhaler 2 puff INHALATION Q4H PRN (Reason: Wheezing) Changed acetaminophen [Tylenol Extra Strength] 500 mg Tablet 500 mg PO Q6H PRN (Reason: Pain) Qty: 0 0RF Discontinued meloxicam 15 mg tablet 15 mg PO QAM Discharge Orders: Discharge Order (Routine); Ordered 04/02/24 Ordered By: Duane Berry Admission Data Admit Date/Time: 03/27/24 03:06 Attending Provider: Duane Berry Admit Provider: Sb Sandra Primary Care Provider: Ilya Irwin Other Providers: Sb Sandra; Fredy Bill; Waleska Oliva; Juventino Santacruz; Ale Messer; Kiersten Dykes; Kennedy Sidhu; Ami Carpenter; Km Hendrickson; Anil Mitchell; Aravind Matos; Meri Lindsey; Kelsey,No Attending; Soledad Shin; Lilliana Hewitt; Morro Light; Leah Islas; Jose Haji; Porfirio Reddy; Elise Mei; Awilda Florentino; Trisha Walker; Melissa White; Sherri Harley; Anthony Hernandez; Gutierrez Hadley; Brenda Ramirez; Binta Dill; Candida Sullivan; Ana Anna; Yamileth Gonzalez; Jess Francis; Karla Cyr; Lisbeth Rosales; Angel Livingston; Jethro Lozano; Josefina Domínguez; Terrie Herrera Jr Supervising Physician Co-Signing Physician Notes Agree with DOMINIC Bowles as above Interviewed and examined patient and agree with above Abd: Soft, tender RUQ, ND Continue current therapy and supportive care No plans for invasive GI workup at this time.
== END 2024-04-02 17:29 | disposition home or self-care (01) | DRG 167 ==
LOC: ED 18:23 → 2S 03-27 03:06 → SUATTDRO 03-27 03:06 → 2S 03-27 03:47